=== PATIENT | male | born 1945 | race Caucasian/White ===

== ENCOUNTER 2019-10-31 15:49 | IRF | payer MEDICARE, MEDICAID, SELFPAY ==
[2019-10-31 15:49] VITALS: BMI 17.7
[2019-10-31 15:52] VITALS: BP 98/57; PULSE 93; RESP 18; TEMP 36.5; O2SAT 98
--- NOTE | 2019-10-31 16:03 | ADMGEN ---
This patient, Aamir Cortez, was admitted to [facility] Room 220-01. Patient/family oriented to hospital policies and general routines including ID bracelet, bed and alarms, visiting hours, pain management, procedures, bathroom and other care routines, personal items, smoking policy, room service/diet, and visiting hours. Valuables list has been completed. Information on how to activate the Rapid Response Team has been discussed. Patient/Family are encouraged to report perceived risks to care and to ask questions if they do not understand what they are told or what they should do.
[2019-10-31 20:55] VITALS: PULSE 66; RESP 18
[2019-10-31 21:05] VITALS: PULSE 65; RESP 18
[2019-10-31] MEDS: FUROSEMIDE 20 MG TABLET PO (21:24)
[2019-10-31] MEDS: LORATADINE 10 MG TABLET PO (21:25)
[2019-10-31] MEDS: GABAPENTIN 300 MG CAPSULE PO (21:25)
[2019-10-31] MEDS: predniSONE 10 MG TABLET PO (21:26)
[2019-10-31] MEDS: ALPRAZOLAM 0.5 MG TABLET PO (21:29)
[2019-10-31 21:30] VITALS: PULSE 85
[2019-10-31] MEDS: carvediloL 3.125 MG TABLET PO (21:30)
[2019-10-31 22:00] VITALS: BP 102/59; PULSE 85; RESP 20; TEMP 36.3; O2SAT 99
[2019-11-01 05:11] LABS: Basophils Percent Auto 0.3 % (0.2-1.2); Hematocrit 31.7 % (42.0-52.0); Hemoglobin 9.9 g/dL (14.0-18.0); Immature Granulocyte Absolute 0.41 K/mm3 (0.00-0.031); Immature Granulocyte Percent A 4.5 % (0-0.5); Lymphocytes Absolute Auto 0.77 K/mm3 (0.9-3.2); Lymphocytes Percent Auto 8.4 % (18.3-44.2); Mean Corpuscular HGB Conc 31.2 g/dl (32-36); Mean Corpuscular Hemoglobin 32.4 pg (26-34); Mean Corpuscular Volume 103.6 fl (80-100); Mean Platelet Volume 10.7 fl (7.4-10.4); Monocytes Absolute Auto 0.6 K/mm3 (0.1-0.6); Monocytes Percent Auto 6.6 % (2.6-8.5); Neutrophils Absolute Auto 7.3 K/mm3 (1.3-6.7); Neutrophils Percent Auto 80.2 % (45.5-73.1); Platelet Count Result 311 k/mm3 (150-375); Red Blood Count 3.06 M/mm3 (4.6-6.20); Red Cell Distribution Width 13.2 % (11.5-14.5); White Blood Count 9.1 K/mm3 (4.5-10.0)
[2019-11-01 05:16] LABS: Blood Urea Nitrogen 29 mg/dL (9-20); Calcium 8.6 mg/dL (8.4-10.2); Carbon Dioxide 37 mmol/L (22-30); Chloride 90 mmol/L (98-107); Estimated CRCL calculation 53 ml/min; Estimated Glomerular Filt Rate > 60; Glucose 135 mg/dL (75-110); Potassium 4.4 mmol/L (3.4-5.0); Sodium 131 mmol/L (137-145)
[2019-11-01 05:23] VITALS: PULSE 62; RESP 18
[2019-11-01 05:52] VITALS: BP 122/73; PULSE 90; RESP 18; TEMP 36.3; O2SAT 97
[2019-11-01] MEDS: FLUTICASONE PROPIONATE 0.05% NA SPR 16 GM BTL (*BKC) 2 SPRAY NASAL (08:31)
[2019-11-01] MEDS: GABAPENTIN 300 MG CAPSULE PO ×3 (08:31→17:03)
[2019-11-01] MEDS: ROFLUMILAST 500 MCG TABLET PO (08:32)
[2019-11-01] MEDS: predniSONE 10 MG TABLET PO ×2 (08:32→17:04)
[2019-11-01] MEDS: CHOLECALCIFEROL 1,000 UNIT TABLET 2000 UNITS PO (08:32)
[2019-11-01] MEDS: MONTELUKAST SODIUM 10 MG TABLET PO (08:33)
[2019-11-01] MEDS: MELOXICAM 7.5 MG TABLET 15 MG PO (08:33)
[2019-11-01] MEDS: carvediloL 3.125 MG TABLET PO ×2 (08:34→20:49)
[2019-11-01] MEDS: lisinopriL 2.5 MG TABLET PO (08:34)
[2019-11-01] MEDS: FUROSEMIDE 20 MG TABLET PO ×2 (08:34→17:04)
[2019-11-01] MEDS: ALPRAZOLAM 0.5 MG TABLET PO ×3 (08:37→17:04)
[2019-11-01 08:40] VITALS: PULSE 118; O2SAT 92
[2019-11-01] MEDS: ALBUTEROL SULFATE (*SP) AEROSOL 1 PUFF 2 PUFF INHALATION ×2 (09:54→21:57)
[2019-11-01 13:00] VITALS: BMI 17.7
[2019-11-01 14:34] VITALS: BP 108/48; PULSE 98; RESP 16; TEMP 36.3; O2SAT 100
[2019-11-01] MEDS: LORATADINE 10 MG TABLET PO (17:06)
--- NOTE | 2019-11-01 17:25 | REHAB_ITS ---
DATE OF SERVICE: 11/01/2019 The patient's primary rehab impairment category is orthopedic other. Etiological diagnoses T5, T6, T9, and L3 fractures with kyphosis. He was seen [id number] on 11/01/2019 at 11:00 a.m. HISTORY AND PHYSICAL EXAM: A 74 years old right-handed male with prior medical history of 1. COPD with oxygen. 2. Hypertension. 3. Chronic back pain. Initially presented to [facility] in [place] on 10/20/2019, for the complaint of back pain, progressive weakness and a fall at home. On initial evaluation in the emergency room, he was found to have hyponatremia with sodium of only 130, potassium of 2.9, BUN of 38, creatinine of 0.7 with CK of 283, magnesium 2.2, and UA negative for UTI. Neurosurgical service was consulted and surgical intervention was recommended. The patient underwent a successful kyphoplasty at T5, T6, T9, L3 with [employer] bone cement by Dr. Crarera. Postoperatively, the patient had acute blood loss resulting in anemia, developed significant pain and increased CO2 retention on ABG and was placed on BiPAP. Respiratory status improved and the BiPAP was discontinued and he was placed on baseline 5 L home oxygen therapy. He was noted to have lower extremity edema. The echocardiogram revealed decreased systolic function. He was started on Coreg and lisinopril therapy with a followup to be scheduled with Cardiology as an outpatient. He was discharged from the hospital on 10/26 to a rehab facility and the patient and the family wanted him to be closer to the home and they came to this rehab. Therapy was initiated at the rehab facility and patient was transferred to us from [facility] and [facility] on 10/31/2019. Surgery or Fall: The patient has had 1 major surgery in the 100 days prior to admission. Has had no fall in the past year. No fall with injury in the past year as well. PAST MEDICAL HISTORY: Bilateral lower extremity weakness, COPD, thoracic radiculopathy, compression fracture of T5 vertebra, T6 vertebra, T9 vertebra, and closed compression fracture of 3rd lumbar vertebra with intractable back pain, atrial fibrillation, anxiety, cardiomyopathy with diagnosis of idiopathic dilated cardiomyopathy diagnosed in 2014, congestive heart failure, benign prostatic hypertrophy, hypertension, neuropathy, nonsustained ventricular tachycardia, and prednisone therapy with shortness of breath. PAST SURGICAL HISTORY: Cardiac catheterization on 04/15/2015. Cardiac electrophysiological mapping and ablation on 11/20 and 2016. Nose surgery 2001 and lumbar sacral-guided injections. SOCIAL HISTORY: Patient is and previously lived alone. The plan after rehab is to discharge to his daughter's home. Past history is consistent with him being a former alcohol intaker 14 drinks per week, never a substance abuser, and only seasonal allergies. FAMILY HISTORY: Nothing pertinent. PRIOR LEVEL OF FUNCTION: He was independent in eating and oral care, total hygiene, shower and bathe upper body, lower body, footwear rolling, left and right sit to lying, lying to sitting, sit to stand, bed to chair transfer, toilet transfer. He was previously ambulating 500 feet independently and was able to complete 4 stairs independently. CURRENT LEVEL OF FUNCTION: Eating is independent. Oral care requires supervision or touch assistance. Toilet hygiene is partial moderate assistance. Shower and bathing partial moderate assistance. Upper body partial moderate assistance. Lower body partial moderate assistance, and footwear is partial and moderate assistance, rolling left and right supervision, sit to lying supervision, lying to sitting partial and moderate assistance. Sit to stand partial moderate assistance. [id number] transfer is partia
[2019-11-01 20:49] VITALS: PULSE 98
[2019-11-01] MEDS: TAMSULOSIN HCL 0.4 MG CAPSULE PO (20:49)
[2019-11-01 21:47] VITALS: BP 96/64; PULSE 86; RESP 22; TEMP 36.6; O2SAT 100
[2019-11-02] VITALS (14 sets, daily range): BP systolic 89–128; BP diastolic 39–62; PULSE 47–94; RESP 16–20; TEMP 36.1–36.4; O2SAT 97–100
[2019-11-02] MEDS: ALBUTEROL SULFATE NEB 2.5 MG/0.5 ML INH INHALATION ×4 (02:52→21:22)
[2019-11-02] MEDS: IPRATROPIUM BR 0.02% INH SOLN 0.5 MG/2.5 ML VIAL INHALATION ×4 (02:52→21:22)
[2019-11-02] MEDS: carvediloL 3.125 MG TABLET PO (08:40)
[2019-11-02] MEDS: FLUTICASONE PROPIONATE 0.05% NA SPR 16 GM BTL (*BKC) 2 SPRAY NASAL (08:41)
[2019-11-02] MEDS: CHOLECALCIFEROL 1,000 UNIT TABLET 2000 UNITS PO (08:41)
[2019-11-02] MEDS: GABAPENTIN 300 MG CAPSULE PO ×3 (08:42→17:52)
[2019-11-02] MEDS: FUROSEMIDE 20 MG TABLET PO ×2 (08:42→17:52)
[2019-11-02] MEDS: lisinopriL 2.5 MG TABLET PO (08:43)
[2019-11-02] MEDS: predniSONE 10 MG TABLET PO ×2 (08:43→17:52)
[2019-11-02] MEDS: MELOXICAM 7.5 MG TABLET 15 MG PO (08:43)
[2019-11-02] MEDS: MONTELUKAST SODIUM 10 MG TABLET PO (08:43)
[2019-11-02] MEDS: TAMSULOSIN HCL 0.4 MG CAPSULE PO ×2 (08:44→17:53)
[2019-11-02] MEDS: ROFLUMILAST 500 MCG TABLET PO (08:44)
[2019-11-02] MEDS: polyethylene glycoL 3350 17 GM POWD.PACK PO (08:44)
--- NOTE | 2019-11-02 08:54 | PC.NURSE ---
Patient continues to refuse to wear back brace (surgeon in [place] is aware). Binder ordered to be applied when out of bed for support - as tolerated. Patient agrees to try to wear this.
[2019-11-02] MEDS: ALPRAZOLAM 0.5 MG TABLET PO ×3 (09:07→17:56)
--- NOTE | 2019-11-02 09:46 | PCPTNOTE ---
Aamir Cortez was evaluated for a []wheeled walker on 11/02/2019 by this physical therapist. The [] wheeled walker will resolve patient's mobility limitations and will be used for ADL's within the home. The patient can safely use the [wheeled]walker. ?The []wheeled walker will resolve the patient?s mobility deficits, including impaired endurance, decrease LE strength and patient having to abide by spinal precautions.
--- NOTE | 2019-11-02 12:02 | WPDNEURORHBP ---
Subjective Date/time seen: 11/02/19 12:02 Interval history: this 74-year-old gentleman with underlying significant COPD was recuperating at a nursing home facility after having had kyphoplasty performed for multiple compression fractures of his thoracolumbar vertebrae came to us with the diagnosis of the same and says that the pain control is better however is still his main issue is the pain on a which is not only better but he is improving overall The shortness of breath is about the same which is related to COPD and he is wearing oxygen about 3 liter minute his baseline used to be 5 liters of oxygen prior to having had kyphoplasty for from Review of Systems Constitutional: Constitutional: Reports no additional constitutional complaints Eyes: Eyes: Reports no additional eye complaints ENT: Reports system reviewed and no additional complaints, except as documented Cardiovascular: Cardiovascular: Reports no additional cardiovascular complaints Respiratory: Respiratory: Reports no additional respiratory complaints Gastrointestinal: Gastrointestinal: Reports no additional gastrointestinal complaints Genitourinary: Genitourinary: Reports no additional male genitourinary complaints Musculoskeletal: Musculoskeletal: Reports no additional musculoskeletal complaints Integumentary/Breasts: Skin/Breast: Reports system reviewed and no additional complaints, except as docu Neurologic: Comments: patient denies having had any trouble with his speech and language functions sore cranial nerves his main complaint is the lower extremity more so than the upper extremity weakness which was responsible for his fall followed by the kyphoplasty performed Psychiatric: Psychiatric: Reports no additional psychiatric complaints Functional Status Ambulation Ability Ability to Ambulate 10 Feet: Contact Guard Ability to Ambulate 50 Feet With 2 Turns: Contact Guard Ability to Ambulate 150 Feet: Contact Guard Ambulation Assistive Devices: Walker, Wheeled Transfers Ability Ability to Transfer In/Out of Chair: Contact Guard Exam Const: General: comfortable and no acute distress HENMT: General nose exam: Normal nares present Mouth: Yes moist mucous membranes Eyes: General: appearance normal, both eyes and all related structures Neck: Neck: supple and no JVD Resp: Other: patient has bilateral rhonchi mildly short of breath with physical therapy but willing to move and work Cardio: Rate: regular rate Rhythm: regular rhythm GI: GI Palp: Yes Soft to palpation Auscultation: normal bowel sounds : Male General Exam: Yes normal external exam Skin: General skin exam: normal color and no rashes or lesions noted Neuro: Other: patient is awake and alert will oriented time place and person and speech language functions cranial exam emanuel normal next Is weakness in the lower extremities also better and he is moving in therapy quite well patient is refusing to brace however on counseling he may be willing to have a binder done to help improve his stability at the spine Extrem: General: normal to inspection Objective Data Vital Signs Vital Signs: Vital Signs - 24 hr 11/01/19 14:34 11/01/19 20:49 11/01/19 21:47 Temperature 36.3 C L 36.6 C Pulse Rate 98 98 86 Respiratory Rate 16 22 H Blood Pressure 108/48 L 96/64 L Pulse Oximetry 100 100 11/02/19 02:58 11/02/19 03:03 11/02/19 05:55 Temperature 36.1 C L Pulse Rate 60 62 64 Respiratory Rate 18 18 20 Blood Pressure 103/47 L Pulse Oximetry 100 11/02/19 08:19 11/02/19 08:26 11/02/19 08:40 Temperature Pulse Rate 88 94 64 Respiratory Rate 18 18 Blood Pressure Pulse Oximetry 99 Intake/Output Intake/Output: Intake & Output 10/30/19 10/31/19 11/01/19 11/02/19 23:59 23:59 23:59 23:59 Intake Total 360 720 360 Balance 360 720 360 Meds/Results Medications: Active Medications Generic Name Dose Route Start Last Admin Trade Name Freq PRN Reason Stop D
--- NOTE | 2019-11-02 15:57 | PC.NURSE ---
patient BP checked several times this afternoon and I called Dr. Tovar to see if he wants to change any cardiac meds? He is holding the coreg. Stopped coreg. Will monitor BP.
[2019-11-02] MEDS: LORATADINE 10 MG TABLET PO (17:54)
[2019-11-03] VITALS (11 sets, daily range): BP systolic 103–106; BP diastolic 54–62; PULSE 76–101; RESP 16–20; TEMP 36.2–36.6; O2SAT 94–100
[2019-11-03] MEDS: ALBUTEROL SULFATE NEB 2.5 MG/0.5 ML INH INHALATION ×3 (02:34→21:08)
[2019-11-03] MEDS: IPRATROPIUM BR 0.02% INH SOLN 0.5 MG/2.5 ML VIAL INHALATION ×3 (02:34→21:08)
[2019-11-03] MEDS: hydrOXYzine HCL 25 MG TABLET PO (09:32)
[2019-11-03] MEDS: FLUTICASONE PROPIONATE 0.05% NA SPR 16 GM BTL (*BKC) 2 SPRAY NASAL (09:32)
--- NOTE | 2019-11-03 09:32 | RPD ---
INDIVIDUALIZED PLAN OF CARE FOR Aamir Cortez Brief Synthesis of Pre-Admission Screen, Post-Admission Evaluation and Therapy Evaluations: The patient presents to rehab with T5, T6, T9, and L3 fractures with kyphosis. Comorbidities include bilateral leg weakness, COPD, thoracic radiculopathy, compression fracture T5 vertebra, compression fracture T6 vertebra, compression fracture T9 vertebra, closed compression fracture 3rd lumbar vertebra, intractable back pain, atrial fibrillation, anxiety, cardiomyopathy (idiopathic dilated cardiomyopathy 2014), CHF, BPH, hypertension, neuropathy, NSVT (nonsustained ventricular tachycardia), prednisone therapy,shortness of breath, acute blood loss anemia. The patient requires physician services for medical oversight, management of postop complications in setting of present comorbidities, and pain management. The patient requires nursing services for DVT prophylactics, infection protection, medication management and education, pressure relief, and wound care. Deficits include:ADLs, Balance, Cognition, Endurance, Mobility, Pain Management, ROM, Safety,Strength, Transfers Lasting Machine Operator/Case Management for: Discharge Planning and Patient/Family Counseling Physical Therapy: 5 days per week for 90 minutes. Treatments may include: Therapeutic Exercise, Gait Training, Neuromuscular Re-education, Transfer Training, Community Reintegration, Bed Mobility, Patient/Family Education, Wheelchair Mobility Group Therapy/Concurrent Therapy Rationales: -Improve attention span during functional activities in a distracted environment. -Enhance problem solving and/or adequate judgment skills during functional activities in a distracted environment. -Promote increased safety awareness in a distracted environment to reduce fall risk with functional tasks, transfers, and ambulation to allow a more safe, self-sufficient return to the home environment. -Improve dynamic balance skills to promote safety and independence with functional activities in a distracted environment for maximum gain. Occupational Therapy: 5 days per week for 90 minutes. Treatments may include: Therapeutic Exercise, Therapeutic Activity, Cognitive Training, Self-Care Transfer Training, Community Reintegration, Home Management, Patient/Family Education, Wheelchair Mobility Training, Energy Conservation Training Group Therapy/Concurrent Therapy Rationales: -Allow therapist to observe and teach generalization and carry-over of skills learned in individual therapy. -Enhance problem solving and sequencing skills during therapeutic activities in a distracted environment. -Promote increased safety awareness in a realistic setting to reduce fall risk with functional tasks due to visual and verbal distractions. -Increase functional level with ADLs, ADL transfers and use of adaptive equipment through therapeutic activities with others while promoting safety to allow a more safe, self-sufficient return home. Medical Prognosis: Good Anticipated Length of Stay: 10 days Rehab Goals: Eating Goal: 06-Independent Oral Hygiene Goal: 06-Independent Toileting Hygiene Goal: 06-Independent Shower/Bathe Self Goal: 06-Independent Upper Body Dressing Goal: 06-Independent Lower Body Dressing Goal: 06-Independent Putting On/Taking Off Footwear Goal: 06-Independent Rolling Left and Right Goal: 06-Independent Sit to Lying Goal: 06-Independent Lying to Sitting on Side of Bed Goal: 06-Independent Sit to Stand Goal: 06-Independent Chair/[id number]-[id number] Transfer Goal: 06-Independent Toilet Transfer Goal: 06-Independent Car Transfer Goal: 06-Independent Walk 10' Goal: 06-Independent Walk 50' with Two Turns Goal: 06-Independent Walk 150' Goal: 06-Independent Walk 10' on Uneven Surface Goal: 06-Independent 1 Step (Curb) Goal: 06-Independent 4 Steps Goal: 06-Independent 12 Steps Goal Score: 06-Independent Picking Up Object Goal: 06-Independent Wheel 50' with Two Turns Score: 09-Not Applicable Wheel
[2019-11-03] MEDS: ROFLUMILAST 500 MCG TABLET PO (09:33)
[2019-11-03] MEDS: MELOXICAM 7.5 MG TABLET 15 MG PO (09:33)
[2019-11-03] MEDS: CHOLECALCIFEROL 1,000 UNIT TABLET 2000 UNITS PO (09:33)
[2019-11-03] MEDS: GABAPENTIN 300 MG CAPSULE PO ×3 (09:34→16:22)
[2019-11-03] MEDS: TAMSULOSIN HCL 0.4 MG CAPSULE PO ×2 (09:34→16:22)
[2019-11-03] MEDS: lisinopriL 2.5 MG TABLET PO (09:34)
[2019-11-03] MEDS: predniSONE 10 MG TABLET PO ×2 (09:34→16:23)
[2019-11-03] MEDS: FUROSEMIDE 20 MG TABLET PO ×2 (09:34→16:21)
[2019-11-03] MEDS: MONTELUKAST SODIUM 10 MG TABLET PO (09:35)
[2019-11-03] MEDS: ALPRAZOLAM 0.5 MG TABLET PO ×3 (09:37→16:21)
--- NOTE | 2019-11-03 12:56 | WPDNEURORHBP ---
Subjective Date/time seen: 11/03/19 12:56 Interval history: patient is here because of multiple spinal fractures along with the postsurgical aches and pains The COPD is stable and he is comfortable with the oxygen requirement at this point Review of Systems Constitutional: Constitutional: Reports no additional constitutional complaints Eyes: Eyes: Reports no additional eye complaints ENT: Reports system reviewed and no additional complaints, except as documented Cardiovascular: Cardiovascular: Reports no additional cardiovascular complaints Respiratory: Respiratory: Reports no additional respiratory complaints Gastrointestinal: Gastrointestinal: Reports no additional gastrointestinal complaints Genitourinary: Genitourinary: Reports no additional male genitourinary complaints Musculoskeletal: Musculoskeletal: Reports no additional musculoskeletal complaints Integumentary/Breasts: Skin/Breast: Reports system reviewed and no additional complaints, except as docu Neurologic: Reports system reviewed and no additional complaints, except as documented Psychiatric: Psychiatric: Reports no additional psychiatric complaints Functional Status Ambulation Ability Ability to Ambulate 10 Feet: Standby Assistance Ability to Ambulate 50 Feet With 2 Turns: Standby Assistance Ability to Ambulate 150 Feet: Standby Assistance Ambulation Assistive Devices: Walker, Wheeled Transfers Ability Ability to Transfer In/Out of Chair: Contact Guard Exam Const: General: comfortable and no acute distress HENMT: General nose exam: Normal nares present Mouth: Yes moist mucous membranes Eyes: General: appearance normal, both eyes and all related structures Neck: Neck: supple and no JVD Resp: Effort & Inspection: normal respiratory effort Auscultation: rhonchi Other: wearing oxygen per nasal cannula and doing fairly well Cardio: Rate: regular rate Rhythm: regular rhythm GI: GI Palp: Yes Soft to palpation Auscultation: normal bowel sounds Skin: General skin exam: normal color and no rashes or lesions noted Neuro: Other: patient is needing assistance in the activities of daily living however does not have any lateralizing focal motor deficit he does have evidence of sensory neuropathy Extrem: General: normal to inspection Objective Data Vital Signs Vital Signs: Vital Signs - 24 hr 11/02/19 14:00 11/02/19 14:11 11/02/19 15:35 Temperature 36.1 C L 36.4 C L Pulse Rate 47 L 89 50 L Respiratory Rate 16 18 16 Blood Pressure 92/39 L 89/52 L Pulse Oximetry 100 100 11/02/19 21:22 11/02/19 21:25 01/28/20 21:31 Temperature Pulse Rate 80 81 Respiratory Rate 18 18 Blood Pressure Pulse Oximetry 97 11/02/19 22:00 11/03/19 02:35 11/03/19 02:41 Temperature 36.1 C L Pulse Rate 82 78 80 Respiratory Rate 20 18 18 Blood Pressure 128/56 L Pulse Oximetry 100 11/03/19 05:32 Temperature 36.2 C L Pulse Rate 79 Respiratory Rate 16 Blood Pressure 106/54 L Pulse Oximetry 99 Intake/Output Intake/Output: Intake & Output 10/31/19 11/01/19 11/02/19 11/03/19 23:59 23:59 23:59 23:59 Intake Total 360 720 840 240 Balance 360 720 840 240 Meds/Results Medications: Active Medications Generic Name Dose Route Start Last Admin Trade Name Freq PRN Reason Stop Dose Admin Acetaminophen 500 mg 10/31/19 19:00 Tylenol Tablet PO Q4H PRN Mild Pain (1-3) or Fever Hydrocodone Bitart/Acetaminophen 1 tab 10/31/19 18:59 [place] 5-325 Mg PO Q8H PRN Pain Rated 4-6 Albuterol 2 puff 10/31/19 18:48 11/01/19 21:57 Proventil Hfa INHALATION 2 puff Q6H PRN Administration Wheezing Albuterol 2.5 mg 11/02/19 02:00 11/03/19 08:26 Albuterol Sulf Neb 2.5mg/0.5ml INHALATION 2.5 mg Q6HRT LORENA Administration Alprazolam 0.5 mg 10/31/19 20:15 11/03/19 12:12 Xanax PO 0.5 mg TID LORENA Administration Budesonide/Formoterol Fumarate 2 puff 10/31/19 20:00 11/03/19 08
[2019-11-03] MEDS: LORATADINE 10 MG TABLET PO (17:35)
[2019-11-04] VITALS (10 sets, daily range): BP systolic 86–111; BP diastolic 48–55; PULSE 74–119; RESP 18–24; TEMP 36.1–36.9; O2SAT 94–100
[2019-11-04] MEDS: IPRATROPIUM BR 0.02% INH SOLN 0.5 MG/2.5 ML VIAL INHALATION ×3 (02:18→20:15)
[2019-11-04] MEDS: ALBUTEROL SULFATE NEB 2.5 MG/0.5 ML INH INHALATION ×3 (02:18→20:15)
[2019-11-04] MEDS: FLUTICASONE PROPIONATE 0.05% NA SPR 16 GM BTL (*BKC) 2 SPRAY NASAL (08:49)
[2019-11-04] MEDS: CHOLECALCIFEROL 1,000 UNIT TABLET 2000 UNITS PO (08:49)
[2019-11-04] MEDS: MELOXICAM 7.5 MG TABLET 15 MG PO (08:50)
[2019-11-04] MEDS: MONTELUKAST SODIUM 10 MG TABLET PO (08:50)
[2019-11-04] MEDS: FUROSEMIDE 20 MG TABLET PO ×2 (08:50→17:24)
[2019-11-04] MEDS: GABAPENTIN 300 MG CAPSULE PO ×3 (08:50→17:24)
[2019-11-04] MEDS: TAMSULOSIN HCL 0.4 MG CAPSULE PO ×2 (08:51→17:24)
[2019-11-04] MEDS: ROFLUMILAST 500 MCG TABLET PO (08:51)
[2019-11-04] MEDS: predniSONE 10 MG TABLET PO ×2 (08:51→17:24)
[2019-11-04] MEDS: lisinopriL 2.5 MG TABLET PO (08:51)
[2019-11-04] MEDS: ALPRAZOLAM 0.5 MG TABLET PO ×3 (08:53→17:27)
--- NOTE | 2019-11-04 11:38 | ECG_ITS ---
Measurements Intervals Loop Rate: 103 P: 75 HI: 115 QRS: 50 QRSD: 81 T: 1 QT: 326 QTc: 428 Interpretive Statements SINUS TACHYCARDIA WITH SHORT HI INTERVAL NONSPECIFIC ST & T-WAVE ABNORMALITY- INF/LAT LEADS BASELINE ARTIFACT- I, II, III, AVR, AVL, AVF, V2-V6 ABNORMAL ECG Electronically Signed On 11-04-2019 13:00:21 TELEVISION EQUIPMENT OPERATOR by Syed Woody D.O.
--- NOTE | 2019-11-04 11:41 | WPDNEURORHBP ---
Subjective Date/time seen: 11/04/19 11:41 Interval history: patient is complaining of cough and congestion and has had pneumonia in the recent past his heart rate is also up and he did have a brief Prieb at of atrial fibrillation in the recent past Review of Systems Constitutional: Constitutional: Reports no additional constitutional complaints Eyes: Eyes: Reports no additional eye complaints ENT: Reports system reviewed and no additional complaints, except as documented Cardiovascular: Cardiovascular: Reports no additional cardiovascular complaints Comments: patient has tachycardia up to 116 beats per minute without much of symptomatology Respiratory: Respiratory: Reports no additional respiratory complaints Comments: patient complains of cough and congestion Gastrointestinal: Gastrointestinal: Reports no additional gastrointestinal complaints Genitourinary: Genitourinary: Reports no additional male genitourinary complaints Musculoskeletal: Musculoskeletal: Reports no additional musculoskeletal complaints Integumentary/Breasts: Skin/Breast: Reports system reviewed and no additional complaints, except as docu Neurologic: Reports system reviewed and no additional complaints, except as documented Psychiatric: Psychiatric: Reports no additional psychiatric complaints Functional Status Ambulation Ability Ability to Ambulate 10 Feet: Standby Assistance Ability to Ambulate 50 Feet With 2 Turns: Standby Assistance Ability to Ambulate 150 Feet: Standby Assistance Ambulation Assistive Devices: Walker, Wheeled Transfers Ability Ability to Transfer In/Out of Chair: Contact Guard Exam Const: General: comfortable and no acute distress HENMT: General nose exam: Normal nares present Mouth: Yes moist mucous membranes Eyes: General: appearance normal, both eyes and all related structures Neck: Neck: no JVD Carotids: bruit Resp: Other: upper airway sounds on physical examination probably URI Cardio: Other: tachycardia however it is regular on clinical exam GI: GI Palp: Yes Soft to palpation Auscultation: normal bowel sounds Skin: General skin exam: normal color and no rashes or lesions noted Neuro: Other: patient's strength in general is improving however he is relatively has decreased endurance weakness generalize lower extremities more so than the upper extremities without lateralizing focal motor deficit Extrem: General: normal to inspection Objective Data Vital Signs Vital Signs: Vital Signs - 24 hr 11/03/19 14:00 11/03/19 14:35 11/03/19 15:03 Temperature 36.3 C L Pulse Rate 77 101 H 77 Pulse Rate [With Activity During Therapy Session] 101 H Respiratory Rate 18 18 Blood Pressure 103/62 Pulse Oximetry 100 100 100 Pulse Oximetry [With Activity During Therapy Session] 100 11/03/19 21:08 11/03/19 21:17 11/03/19 21:23 Temperature 36.6 C Pulse Rate 87 82 84 Pulse Rate [With Activity During Therapy Session] Respiratory Rate 18 20 18 Blood Pressure 103/58 L Pulse Oximetry 94 100 Pulse Oximetry [With Activity During Therapy Session] 11/04/19 02:19 11/04/19 02:29 11/04/19 06:00 Temperature 36.1 C L Pulse Rate 78 80 74 Pulse Rate [With Activity During Therapy Session] Respiratory Rate 18 18 24 H Blood Pressure 111/55 L Pulse Oximetry 100 Pulse Oximetry [With Activity During Therapy Session] 11/04/19 08:20 11/04/19 08:30 11/04/19 09:30 Temperature Pulse Rate 85 89 117 H Pulse Rate [With Activity During Therapy Session] 102 H Respiratory Rate 20 20 Blood Pressure Pulse Oximetry 94 100 Pulse Oximetry [With Activity During Therapy Session] 100 Intake/Output Intake/Output: Intake & Output 11/01/19 11/02/19 11/03/19 11/04/19 23:59 23:59 23:59 23:59 Intake Total 720 840 600 240 Balance 720 840 600 240 Meds/Results Medications: Active Medications Generic Name Dose Route Start Last Admin Trade Name Freq PRN Reason Stop Dose Admin Ac
[2019-11-04] MEDS: AZITHROMYCIN 250 MG TABLET 500 MG PO (14:12)
[2019-11-04] MEDS: LORATADINE 10 MG TABLET PO (17:25)
[2019-11-05] VITALS (12 sets, daily range): BP systolic 99–104; BP diastolic 55–60; PULSE 76–120; RESP 18–24; TEMP 36.6–37; O2SAT 93–98
[2019-11-05] MEDS: ALBUTEROL SULFATE NEB 2.5 MG/0.5 ML INH INHALATION ×4 (01:26→20:40)
[2019-11-05] MEDS: IPRATROPIUM BR 0.02% INH SOLN 0.5 MG/2.5 ML VIAL INHALATION ×4 (01:26→20:40)
[2019-11-05] MEDS: AZITHROMYCIN 250 MG TABLET 500 MG PO (09:12)
[2019-11-05] MEDS: ALPRAZOLAM 0.5 MG TABLET PO ×3 (09:12→17:57)
[2019-11-05] MEDS: CHOLECALCIFEROL 1,000 UNIT TABLET 2000 UNITS PO (09:13)
[2019-11-05] MEDS: FUROSEMIDE 20 MG TABLET PO ×2 (09:13→17:58)
[2019-11-05] MEDS: FLUTICASONE PROPIONATE 0.05% NA SPR 16 GM BTL (*BKC) 2 SPRAY NASAL (09:13)
[2019-11-05] MEDS: MELOXICAM 7.5 MG TABLET 15 MG PO (09:14)
[2019-11-05] MEDS: MONTELUKAST SODIUM 10 MG TABLET PO (09:14)
[2019-11-05] MEDS: GABAPENTIN 300 MG CAPSULE PO ×3 (09:14→17:58)
[2019-11-05] MEDS: lisinopriL 2.5 MG TABLET PO (09:14)
[2019-11-05] MEDS: predniSONE 10 MG TABLET PO ×2 (09:14→17:58)
[2019-11-05] MEDS: TAMSULOSIN HCL 0.4 MG CAPSULE PO ×2 (09:15→17:57)
[2019-11-05] MEDS: ROFLUMILAST 500 MCG TABLET PO (09:15)
--- NOTE | 2019-11-05 13:18 | WPDNEURORHBP ---
Subjective Date/time seen: 11/05/19 13:18 Interval history: Errol is doing fairly well and does not have any new specific complaints although he runs relatively low blood pressure but asymptomatic his COPD is stable and does not have any new complaints Review of Systems Constitutional: Constitutional: Reports no additional constitutional complaints Eyes: Eyes: Reports no additional eye complaints ENT: Reports system reviewed and no additional complaints, except as documented Cardiovascular: Cardiovascular: Reports no additional cardiovascular complaints Respiratory: Respiratory: Reports no additional respiratory complaints Gastrointestinal: Gastrointestinal: Reports no additional gastrointestinal complaints Genitourinary: Genitourinary: Reports no additional male genitourinary complaints Musculoskeletal: Musculoskeletal: Reports no additional musculoskeletal complaints Integumentary/Breasts: Skin/Breast: Reports system reviewed and no additional complaints, except as docu Neurologic: Reports system reviewed and no additional complaints, except as documented Psychiatric: Psychiatric: Reports no additional psychiatric complaints Functional Status Ambulation Ability Ability to Ambulate 10 Feet: Standby Assistance Ability to Ambulate 50 Feet With 2 Turns: Standby Assistance Ability to Ambulate 150 Feet: Standby Assistance Ambulation Assistive Devices: Walker, Wheeled Transfers Ability Ability to Transfer In/Out of Chair: Standby Assistance Exam Const: General: comfortable and no acute distress HENMT: General nose exam: Normal nares present Mouth: Yes moist mucous membranes Eyes: General: appearance normal, both eyes and all related structures Neck: Neck: supple and no JVD Resp: Other: as usual bilateral rhonchi without any worsening Cardio: Rate: regular rate Rhythm: regular rhythm GI: GI Palp: Yes Soft to palpation Auscultation: normal bowel sounds Skin: General skin exam: normal color and no rashes or lesions noted Neuro: Other: patient's generalized weakness is improving lower extremities improving his walking better blood pressure is better controlled comparing to earlier this morning No lateralizing focal motor deficit is noted Extrem: General: normal to inspection Objective Data Vital Signs Vital Signs: Vital Signs - 24 hr 11/04/19 14:00 11/04/19 20:15 11/04/19 20:25 Temperature 36.9 C Pulse Rate 119 H 84 87 Pulse Rate [With Activity During Therapy Session] Respiratory Rate 19 20 20 Blood Pressure 86/49 L Pulse Oximetry 97 99 Pulse Oximetry [With Activity During Therapy Session] 11/04/19 22:00 11/05/19 01:26 11/05/19 01:35 Temperature 36.3 C L Pulse Rate 90 87 85 Pulse Rate [With Activity During Therapy Session] Respiratory Rate 18 20 20 Blood Pressure 87/48 L Pulse Oximetry 96 Pulse Oximetry [With Activity During Therapy Session] 11/05/19 05:59 11/05/19 08:17 11/05/19 08:25 Temperature 37.0 C Pulse Rate 76 113 H 106 H Pulse Rate [With Activity During Therapy Session] Respiratory Rate 18 20 20 Blood Pressure 100/55 L Pulse Oximetry 93 97 Pulse Oximetry [With Activity During Therapy Session] 11/05/19 09:27 Temperature Pulse Rate 114 H Pulse Rate [With Activity During Therapy Session] 120 H Respiratory Rate Blood Pressure 101/55 L Pulse Oximetry 98 Pulse Oximetry [With Activity During Therapy Session] 93 Intake/Output Intake/Output: Intake & Output 11/02/19 11/03/19 11/04/19 11/05/19 23:59 23:59 23:59 23:59 Intake Total 840 600 720 360 Balance 840 600 720 360 Meds/Results Medications: Active Medications Generic Name Dose Route Start Last Admin Trade Name Freq PRN Reason Stop Dose Admin Acetaminophen 500 mg 10/31/19 19:00 Tylenol Tablet PO Q4H PRN Mild Pain (1-3) or Fever Hydrocodone Bitart/Acetaminophen 1 tab 10/31/19 18:59 [place] 5-325 Mg PO Q8H PRN Pain Rated 4-6 Albuterol
--- NOTE | 2019-11-05 13:45 | PCDIET ---
Nutrition Follow-Up Complete: Nutrition Diagnosis: Underweight related to COPD as evidenced by BMI of 17.8. Nutrition Goals: Intakes >75%, stable weight. Intake goal met with patient consuming 70-100% of most meals. No new weight available. Last recorded weight is 48.4 kg. Recommend obtaining new weight. Bowel Motility: +BM this date. Labs Reviewed: No new labs available. Meds Noted: Albuterol, Prednisone, Vitamin D, Lasix Additional Notes: Patient reports food has been good and denies c/o. Requesting turkey sandwich with dinner tray which he can eat during the night if he gets hungry. Declines oral supplements; feels they will increase phleghm production. Recommend continuing regular diet with added sandwich for late night snack. Will continue to monitor with same goals. Nutrition Monitoring and Evaluation: Follow up in 5 days.
[2019-11-05] MEDS: LORATADINE 10 MG TABLET PO (17:59)
[2019-11-06] VITALS (12 sets, daily range): BP systolic 100–106; BP diastolic 52–59; PULSE 61–100; RESP 16–20; TEMP 36.3–36.6; O2SAT 97–100
[2019-11-06] MEDS: ALBUTEROL SULFATE NEB 2.5 MG/0.5 ML INH INHALATION ×4 (02:00→20:50)
[2019-11-06] MEDS: IPRATROPIUM BR 0.02% INH SOLN 0.5 MG/2.5 ML VIAL INHALATION ×4 (02:00→20:50)
[2019-11-06] MEDS: ALPRAZOLAM 0.5 MG TABLET PO ×3 (08:28→18:02)
[2019-11-06] MEDS: AZITHROMYCIN 250 MG TABLET 500 MG PO (08:30)
[2019-11-06] MEDS: CHOLECALCIFEROL 1,000 UNIT TABLET 2000 UNITS PO (08:31)
[2019-11-06] MEDS: FUROSEMIDE 20 MG TABLET PO ×2 (08:32→18:04)
[2019-11-06] MEDS: lisinopriL 2.5 MG TABLET PO (08:33)
[2019-11-06] MEDS: predniSONE 10 MG TABLET PO ×2 (08:33→18:05)
[2019-11-06] MEDS: GABAPENTIN 300 MG CAPSULE PO ×3 (08:33→18:04)
[2019-11-06] MEDS: MELOXICAM 7.5 MG TABLET 15 MG PO (08:33)
[2019-11-06] MEDS: MONTELUKAST SODIUM 10 MG TABLET PO (08:33)
[2019-11-06] MEDS: FLUTICASONE PROPIONATE 0.05% NA SPR 16 GM BTL (*BKC) 2 SPRAY NASAL (08:34)
[2019-11-06] MEDS: TAMSULOSIN HCL 0.4 MG CAPSULE PO ×2 (08:34→18:05)
[2019-11-06] MEDS: ROFLUMILAST 500 MCG TABLET PO (08:34)
[2019-11-06] MEDS: LORATADINE 10 MG TABLET PO (18:05)
[2019-11-07] VITALS (12 sets, daily range): BP systolic 105–110; BP diastolic 58–62; PULSE 70–102; RESP 16–22; TEMP 36.8–37; O2SAT 96–99
[2019-11-07] MEDS: ALBUTEROL SULFATE NEB 2.5 MG/0.5 ML INH INHALATION ×4 (01:45→21:04)
[2019-11-07] MEDS: IPRATROPIUM BR 0.02% INH SOLN 0.5 MG/2.5 ML VIAL INHALATION ×4 (01:45→21:04)
--- NOTE | 2019-11-07 08:30 | PCPTNOTE ---
Patient's O2 sats remained 92-99% throughout physical therapy session this morning. O2 at 3L. Pt given frequent rest breaks.
[2019-11-07] MEDS: ALPRAZOLAM 0.5 MG TABLET PO ×3 (09:40→17:41)
[2019-11-07] MEDS: AZITHROMYCIN 250 MG TABLET 500 MG PO (09:40)
[2019-11-07] MEDS: FLUTICASONE PROPIONATE 0.05% NA SPR 16 GM BTL (*BKC) 2 SPRAY NASAL (09:41)
[2019-11-07] MEDS: CHOLECALCIFEROL 1,000 UNIT TABLET 2000 UNITS PO (09:41)
[2019-11-07] MEDS: MELOXICAM 7.5 MG TABLET 15 MG PO (09:42)
[2019-11-07] MEDS: lisinopriL 2.5 MG TABLET PO (09:42)
[2019-11-07] MEDS: GABAPENTIN 300 MG CAPSULE PO ×3 (09:42→17:42)
[2019-11-07] MEDS: ROFLUMILAST 500 MCG TABLET PO (09:42)
[2019-11-07] MEDS: FUROSEMIDE 20 MG TABLET PO ×2 (09:42→17:41)
[2019-11-07] MEDS: predniSONE 10 MG TABLET PO ×2 (09:42→17:42)
[2019-11-07] MEDS: MONTELUKAST SODIUM 10 MG TABLET PO (09:42)
[2019-11-07] MEDS: TAMSULOSIN HCL 0.4 MG CAPSULE PO ×2 (09:43→17:42)
--- NOTE | 2019-11-07 12:38 | WPDNEURORHBP ---
Subjective Date/time seen: 11/07/19 12:38 Interval history: stable no complaints Review of Systems Review of Systems: All systems reviewed & are unremarkable except as noted in HPI and below Functional Status Ambulation Ability Ability to Ambulate 10 Feet: Standby Assistance Ability to Ambulate 50 Feet With 2 Turns: Standby Assistance Ability to Ambulate 150 Feet: Standby Assistance Ambulation Assistive Devices: Walker, Wheeled Transfers Ability Ability to Transfer In/Out of Chair: Standby Assistance Exam Const: General: cooperative, comfortable and no acute distress Orientation/consciousness: patient oriented x3 HENMT: Head: normocephalic Eyes: General: appearance normal, both eyes and all related structures Resp: Effort & Inspection: normal respiratory effort Auscultation: clear to auscultation bilaterally Cardio: Rate: regular rate Rhythm: regular rhythm GI: Auscultation: normal bowel sounds Skin: General skin exam: no rashes or lesions noted Neuro: General: patient oriented x3 Cranial nerves: Yes CN's II-XII intact bilaterally Speech: normal speech Motor exam (neuro): 5/5 motor strength present throughout (on the lower side) Psych: Appearance: grossly normal Objective Data Vital Signs Vital Signs: Vital Signs - 24 hr 11/06/19 14:00 11/06/19 15:08 11/06/19 15:15 Temperature 36.3 C L Pulse Rate 98 92 94 Respiratory Rate 20 20 20 Blood Pressure 102/52 L Pulse Oximetry 100 11/06/19 20:50 11/06/19 21:00 11/06/19 22:00 Temperature 36.6 C Pulse Rate 91 92 87 Respiratory Rate 20 20 20 Blood Pressure 100/59 L Pulse Oximetry 97 98 11/07/19 01:45 11/07/19 01:55 11/07/19 06:00 Temperature 37.0 C Pulse Rate 93 93 82 Respiratory Rate 20 20 18 Blood Pressure 105/58 L Pulse Oximetry 99 11/07/19 09:50 11/07/19 09:51 11/07/19 09:58 Temperature Pulse Rate 79 78 Respiratory Rate 22 H 22 H Blood Pressure Pulse Oximetry 99 Intake/Output Intake/Output: Intake & Output 11/04/19 11/05/19 11/06/19 11/07/19 23:59 23:59 23:59 23:59 Intake Total 720 840 800 200 Balance 720 840 800 200 Meds/Results Medications: Active Medications Generic Name Dose Route Start Last Admin Trade Name Freq PRN Reason Stop Dose Admin Acetaminophen 500 mg 10/31/19 19:00 Tylenol Tablet PO Q4H PRN Mild Pain (1-3) or Fever Hydrocodone Bitart/Acetaminophen 1 tab 10/31/19 18:59 11/07/19 11:45 [place] 5-325 Mg PO 1 tab Q8H PRN Administration Pain Rated 4-6 Albuterol 2 puff 10/31/19 18:48 11/01/19 21:57 Proventil Hfa INHALATION 2 puff Q6H PRN Administration Wheezing Albuterol 2.5 mg 11/02/19 02:00 11/07/19 09:50 Albuterol Sulf Neb 2.5mg/0.5ml INHALATION 2.5 mg Q6HRT LORENA Administration Alprazolam 0.5 mg 10/31/19 20:15 11/07/19 12:06 Xanax PO 0.5 mg TID LORENA Administration Azithromycin 500 mg 11/04/19 09:00 11/07/19 09:40 Zithromax Tablet PO 500 mg DAILY LORENA Administration Budesonide/Formoterol Fumarate 2 puff 10/31/19 20:00 11/07/19 09:50 Symbicort 160-4.5 Mcg (*Sp) Inhaler INHALATION 2 puff Q12HRT LORENA Administration Fluticasone Propionate 2 spray 11/01/19 09:00 11/07/19 09:41 Flonase 0.05% Nasal [place] NASAL 2 spray QAM LORENA Administration Furosemide 20 mg 10/31/19 19:25 11/07/19 09:42 Lasix Tablet PO 20 mg BID LORENA Administration Gabapentin 300 mg 10/31/19 19:25 11/07/19 12:06 Neurontin PO 300 mg TID LORENA Administration Hydroxyzine HCl 25 mg 10/31/19 18:48 11/03/19 09:32 Atarax Tablet PO 25 mg TID PRN Administration Anxiety Ipratropium [place] 0.5 mg 11/02/19 02:00 11/07/19 09:50 Atrovent Neb INHALATION 0.5 mg Q6HRT LORENA Administration Lisinopril 2.5 mg 11/01/19 09:00 11/07/19 09:42 Prinivil PO 2.5 mg QAM LORENA Administration Loratadine 10 mg 10/31/19 18:00 11/06/19 18:05 Claritin PO 12/01/19 18:01 10 mg
[2019-11-07] MEDS: BACLOFEN 10 MG TABLET PO (17:41)
[2019-11-07] MEDS: LORATADINE 10 MG TABLET PO (17:42)
[2019-11-08] VITALS (13 sets, daily range): BP systolic 95–124; BP diastolic 50–74; PULSE 84–104; RESP 16–20; TEMP 36.7–37.1; O2SAT 96–100
[2019-11-08] MEDS: ALBUTEROL SULFATE NEB 2.5 MG/0.5 ML INH INHALATION ×4 (02:33→21:16)
[2019-11-08] MEDS: IPRATROPIUM BR 0.02% INH SOLN 0.5 MG/2.5 ML VIAL INHALATION ×4 (02:33→21:16)
[2019-11-08 06:00] LABS: Blood Urea Nitrogen 34 mg/dL (9-20); Calcium 8.7 mg/dL (8.4-10.2); Carbon Dioxide 31 mmol/L (22-30); Chloride 95 mmol/L (98-107); Estimated CRCL calculation 61 ml/min; Estimated Glomerular Filt Rate > 60; Glucose 111 mg/dL (75-110); Potassium 4.4 mmol/L (3.4-5.0); Sodium 130 mmol/L (137-145)
[2019-11-08 06:01] LABS: Basophils Absolute Auto 0.1 K/mm3 (0.0-0.1); Basophils Percent Auto 0.5 % (0.2-1.2); Eosinophils Percent Auto 0.1 % (0-4.4); Hematocrit 29.7 % (42.0-52.0); Hemoglobin 9.4 g/dL (14.0-18.0); Immature Granulocyte Absolute 0.89 K/mm3 (0.00-0.031); Immature Granulocyte Percent A 6.9 % (0-0.5); Lymphocytes Absolute Auto 0.93 K/mm3 (0.9-3.2); Lymphocytes Percent Auto 7.2 % (18.3-44.2); Mean Corpuscular HGB Conc 31.6 g/dl (32-36); Mean Corpuscular Hemoglobin 32.3 pg (26-34); Mean Corpuscular Volume 102.1 fl (80-100); Mean Platelet Volume 10.3 fl (7.4-10.4); Monocytes Percent Auto 8.1 % (2.6-8.5); Neutrophils Absolute Auto 9.9 K/mm3 (1.3-6.7); Neutrophils Percent Auto 77.2 % (45.5-73.1); Platelet Count Result 265 k/mm3 (150-375); Red Blood Count 2.91 M/mm3 (4.6-6.20); Red Cell Distribution Width 13.4 % (11.5-14.5); White Blood Count 12.8 K/mm3 (4.5-10.0)
[2019-11-08] MEDS: AZITHROMYCIN 250 MG TABLET 500 MG PO (08:54)
[2019-11-08] MEDS: lisinopriL 2.5 MG TABLET PO (08:55)
[2019-11-08] MEDS: FLUTICASONE PROPIONATE 0.05% NA SPR 16 GM BTL (*BKC) 2 SPRAY NASAL (08:55)
[2019-11-08] MEDS: CHOLECALCIFEROL 1,000 UNIT TABLET 2000 UNITS PO (08:55)
[2019-11-08] MEDS: GABAPENTIN 300 MG CAPSULE PO ×3 (08:55→17:23)
[2019-11-08] MEDS: BACLOFEN 10 MG TABLET PO ×2 (08:55→17:23)
[2019-11-08] MEDS: FUROSEMIDE 20 MG TABLET PO ×2 (08:55→17:23)
[2019-11-08] MEDS: TAMSULOSIN HCL 0.4 MG CAPSULE PO ×2 (08:56→17:23)
[2019-11-08] MEDS: MELOXICAM 7.5 MG TABLET 15 MG PO (08:56)
[2019-11-08] MEDS: MONTELUKAST SODIUM 10 MG TABLET PO (08:56)
[2019-11-08] MEDS: ROFLUMILAST 500 MCG TABLET PO (08:56)
[2019-11-08] MEDS: predniSONE 10 MG TABLET PO ×2 (08:56→17:23)
[2019-11-08] MEDS: ALPRAZOLAM 0.5 MG TABLET PO ×3 (08:58→17:22)
[2019-11-08] MEDS: LORATADINE 10 MG TABLET PO (17:24)
[2019-11-09] VITALS (14 sets, daily range): BP systolic 124–126; BP diastolic 69–70; PULSE 85–118; RESP 18–24; TEMP 36.2–36.8; O2SAT 86–100
[2019-11-09] MEDS: IPRATROPIUM BR 0.02% INH SOLN 0.5 MG/2.5 ML VIAL INHALATION ×3 (03:31→14:07)
[2019-11-09] MEDS: ALBUTEROL SULFATE NEB 2.5 MG/0.5 ML INH INHALATION ×3 (03:31→14:07)
[2019-11-09] MEDS: ALPRAZOLAM 0.5 MG TABLET PO ×3 (09:35→17:41)
[2019-11-09] MEDS: AZITHROMYCIN 250 MG TABLET 500 MG PO (09:35)
[2019-11-09] MEDS: BACLOFEN 10 MG TABLET PO ×2 (09:36→17:41)
[2019-11-09] MEDS: CHOLECALCIFEROL 1,000 UNIT TABLET 2000 UNITS PO (09:36)
[2019-11-09] MEDS: FLUTICASONE PROPIONATE 0.05% NA SPR 16 GM BTL (*BKC) 2 SPRAY NASAL (09:36)
[2019-11-09] MEDS: lisinopriL 2.5 MG TABLET PO (09:37)
[2019-11-09] MEDS: MELOXICAM 7.5 MG TABLET 15 MG PO (09:37)
[2019-11-09] MEDS: GABAPENTIN 300 MG CAPSULE PO ×3 (09:37→17:41)
[2019-11-09] MEDS: FUROSEMIDE 20 MG TABLET PO ×2 (09:37→17:42)
[2019-11-09] MEDS: ROFLUMILAST 500 MCG TABLET PO (09:38)
[2019-11-09] MEDS: TAMSULOSIN HCL 0.4 MG CAPSULE PO ×2 (09:38→17:41)
[2019-11-09] MEDS: MONTELUKAST SODIUM 10 MG TABLET PO (09:38)
[2019-11-09] MEDS: predniSONE 10 MG TABLET PO ×2 (09:38→17:42)
--- NOTE | 2019-11-09 11:16 | WPDNEURORHBP ---
Subjective Date/time seen: 11/09/19 11:16 Interval history: This patient is here in acute rehab after having had kyphoplasty performed for multiple vertebral fractures He also has chronic obstructive lung disease for which he is requiring oxygen at home prior to coming to us his going to be evaluated for home oxygen program and ready to be discharged later this afternoon to goals have been achieved he does not have any new specific complaints Review of Systems Constitutional: Constitutional: Reports no additional constitutional complaints Eyes: Eyes: Reports no additional eye complaints ENT: Reports system reviewed and no additional complaints, except as documented Cardiovascular: Cardiovascular: Reports no additional cardiovascular complaints Respiratory: Respiratory: Reports no additional respiratory complaints Gastrointestinal: Gastrointestinal: Reports no additional gastrointestinal complaints Genitourinary: Genitourinary: Reports no additional male genitourinary complaints Musculoskeletal: Musculoskeletal: Reports no additional musculoskeletal complaints Integumentary/Breasts: Skin/Breast: Reports system reviewed and no additional complaints, except as docu Neurologic: Reports system reviewed and no additional complaints, except as documented Psychiatric: Psychiatric: Reports no additional psychiatric complaints Functional Status Ambulation Ability Ability to Ambulate 10 Feet: Independent Ability to Ambulate 50 Feet With 2 Turns: Independent Ability to Ambulate 150 Feet: Independent Ambulation Assistive Devices: Walker, Wheeled Transfers Ability Ability to Transfer In/Out of Chair: Independent Exam Const: General: comfortable and no acute distress HENMT: General nose exam: Normal nares present Mouth: Yes moist mucous membranes Eyes: General: appearance normal, both eyes and all related structures Neck: Neck: supple and no JVD Resp: Effort & Inspection: normal respiratory effort Auscultation: rhonchi Other: bilateral rhonchi remains roughly about the same as the patient is chronic obstructive lung disease Cardio: Rate: regular rate Rhythm: regular rhythm GI: GI Palp: Yes Soft to palpation Auscultation: normal bowel sounds Skin: General skin exam: normal color and no rashes or lesions noted Neuro: Other: significantly improved strength in both upper lower extremities ambulating with the walker around the halls without any effort Extrem: General: normal to inspection Objective Data Vital Signs Vital Signs: Vital Signs - 24 hr 11/08/19 14:00 11/08/19 14:56 11/08/19 15:06 Temperature 37.1 C Pulse Rate 100 97 101 H Respiratory Rate 20 20 20 Blood Pressure 95/50 L Pulse Oximetry 97 11/08/19 20:20 11/08/19 21:18 11/08/19 21:19 Temperature 36.7 C Pulse Rate 99 84 Respiratory Rate 18 16 Blood Pressure 124/74 Pulse Oximetry 100 97 11/08/19 21:28 11/09/19 03:33 11/09/19 03:44 Temperature Pulse Rate 89 112 H 118 H Respiratory Rate 16 18 18 Blood Pressure Pulse Oximetry 11/09/19 06:00 11/09/19 08:55 11/09/19 09:05 Temperature 36.8 C Pulse Rate 98 88 85 Respiratory Rate 24 H 20 18 Blood Pressure 124/69 Pulse Oximetry 98 99 Intake/Output Intake/Output: Intake & Output 11/06/19 11/07/19 11/08/19 11/09/19 23:59 23:59 23:59 23:59 Intake Total 800 500 930 300 Balance 800 500 930 300 Meds/Results Medications: Active Medications Generic Name Dose Route Start Last Admin Trade Name Freq PRN Reason Stop Dose Admin Acetaminophen 500 mg 10/31/19 19:00 Tylenol Tablet PO Q4H PRN Mild Pain (1-3) or Fever Hydrocodone Bitart/Acetaminophen 1 tab 10/31/19 18:59 11/08/19 11:29 [place] 5-325 Mg PO 1 tab Q8H PRN Administration Pain Rated 4-6 Albuterol 2 puff 10/31/19 18:48 11/01/19 21:57 Proventil Hfa INHALATION 2 puff Q6H PRN Administration Wheezing Albuterol 2.5 mg 11/02/19 02:00 11/09/19 08:55
--- NOTE | 2019-11-09 16:00 | HOMEO2EVAL ---
Home Oxygen Evaluation RC: Home Oxygen (O2) Evaluation Start: 11/09/19 14:00 Freq: ONCE Status: Active Protocol: RPE Activity Type Activity Date Activity User E-Sign Co-Sign Detail Recorded Client Recorded Date Recorded By Document 11/09/19 15:30 [email or web address] 11/09/19 15:59 DARCIE Document 11/09/19 15:33 [email or web address] [email or web address] 11/09/19 15:59 DARCIE Document 11/09/19 15:35 [email or web address] [email or web address] 11/09/19 15:59 DARCIE Document 11/09/19 15:37 [email or web address] [email or web address] 11/09/19 15:59 DARCIE Document 11/09/19 15:38 [email or web address] [email or web address] 11/09/19 15:59 DARCIE Document 11/09/19 15:45 [email or web address] [email or web address] 11/09/19 15:59 DARCIE 11/09/19 11/09/19 11/09/19 15:30 15:33 15:35 Home O2 Evaluation Test Phase Resting Resting Resting Oxygen Delivery Room Air Nasal Cannula Nasal Cannula Oxygen Flow Rate (L/min) 1 2 Pulse Oximetry (90-100 %) 86 L 87 L 91 Pulse Rate (60-100 beats/min) 100 Home Oxygen Evaluation Comments Treatment Charges O2 Evaluation 11/09/19 11/09/19 11/09/19 15:37 15:38 15:45 Home O2 Evaluation Test Phase Exercise Exercise Resting Oxygen Delivery Nasal Cannula Nasal Cannula Nasal Cannula Oxygen Flow Rate (L/min) 2 3 2 Pulse Oximetry (90-100 %) 87 L 91 93 Pulse Rate (60-100 beats/min) Home Oxygen Evaluation Comments PT REQUIRES 2 AT REST AND 3 WITH ACTIVITY Treatment Charges
--- NOTE | 2019-11-09 16:01 | PCRCNOTE ---
PT HAS EXISTING HOME O2 WITH [facility]. HOME O2 EVAL COMPLETED TO UPDATE O2 NEEDS. CURRENT O2 NEEDS ARE 2 AT REST AND 3 WITH ACTIVITY. [facility] BROUGHT IN A TANK FOR TRANSPORT TO HOME. DAUGHTER STATES SHE IS BRINGING PT CONCENTRATOR FROM HIS HOME TO HERS. I WILL FAX [facility] AND ASK THEM TO FOLLOW UP WITH PT TO ENSURE HE HAS ALL REQUIRED HOME O2 EQUIPMENT.
[2019-11-09] MEDS: LORATADINE 10 MG TABLET PO (17:53)
--- NOTE | 2019-11-14 12:02 | PM.DS ---
DS: Diagnosis Admitting Diagnosis Admitting Diagnosis: Wedge compression fracture of T5-T6 vertebra, initial encounter for closed fracture Discharge Diagnosis (1) BPH (benign prostatic hyperplasia): Code(s): N40.0 - Benign prostatic hyperplasia without lower urinary tract symptoms Status: Acute (2) Congestive heart failure: Code(s): I50.9 - Heart failure, unspecified Status: Acute (3) Dilated idiopathic cardiomyopathy: Code(s): I42.0 - Dilated cardiomyopathy Status: Acute (4) Anxiety: Code(s): F41.9 - Anxiety disorder, unspecified Status: Acute (5) Atrial fib/flutter, transient: Status: Acute (6) COPD (chronic obstructive pulmonary disease): Code(s): J44.9 - Chronic obstructive pulmonary disease, unspecified Status: Acute (7) S/P kyphoplasty: Code(s): Z98.890 - Other specified postprocedural states Status: Acute (8) L3 vertebral fracture: Code(s): S32.039A - Unspecified fracture of third lumbar vertebra, initial encounter for closed fracture Status: Acute (9) T9 vertebral fracture: Code(s): S22.079A - Unspecified fracture of T9-T10 vertebra, initial encounter for closed fracture Status: Acute (10) T6 vertebral fracture: Code(s): S22.059A - Unspecified fracture of T5-T6 vertebra, initial encounter for closed fracture Status: Acute (11) T5 vertebral fracture: Code(s): S22.059A - Unspecified fracture of T5-T6 vertebra, initial encounter for closed fracture Status: Acute DS: Summary Hospital Course Reason for hospitalization: This 74-year-old right-handed male was admitted with a history of T5-T6 T9 and L3 fractures with kyphosis followed by kyphoplasty he had underlying issues of COPD being on oxygen hypertension and chronic back pain Hospital Course: patient beside receiving the medical management of his underlying medical issues received the physical therapy of compression therapy and gait training and was able to be sent home with home health program no falls were according to the course of hospital He was able to achieved the following independent measures eating independent, oral hygiene independent, toileting independent, bathing setup upper body dressing set up lower body dressing set up foot fair set up rolling in bed independent sitting to lying independent lying to sitting independent sit to stand independent check transfers independent 12 transfers independent car transfers independent walking 10 feet independent walking 50 feet with to turns independent walking 150 feet independent walking 10 feet uneven surfaces independent car but or set up independent 4 steps independent 12 steps independent picking up objects independent The patient's original admission functional independent measures and the goal were already recorded in the initial H and P performed by my partner Dr. Leone Status at Discharge Cognitive/behavioral status at discharge: within the normal range Time Spent with Patient Time attestation: Total time spent providing and/or coordinating discharge services: Exam Const: General: comfortable and no acute distress HENMT: General nose exam: Normal nares present Mouth: Yes dry mucous membranes Eyes: General: appearance normal, both eyes and all related structures Neck: Neck: supple and no JVD Resp: Auscultation: rhonchi Other: patient is chronic COPD and has more less rhonchi most of the time Cardio: Rate: regular rate Rhythm: regular rhythm GI: GI Palp: Yes Soft to palpation Auscultation: normal bowel sounds Skin: General skin exam: normal color Neuro: Other: patient's neurological examination was nonfocal and he was back to his baseline and 1 can see the functional independent measures Extrem: General: normal to inspection DS: Data Data Completed and Pending Completed studies during hospitalization: patient's white [place] was 45039 hemoglobin of 9.4 hematocrit 2
== END 2019-11-09 19:08 | disposition home health service (06) | DRG 560 ==
PROVIDERS: Admitting Provider Psychiatry & Neurology Neurology; Visit Provider Psychiatry & Neurology Neurology
DX: S22.050D Wedge compression fracture of T5-T6 vertebra, subsequent encounter for fracture with routine healing (principal); I42.0 Dilated cardiomyopathy; I47.2 Ventricular tachycardia; D62 Acute posthemorrhagic anemia; S22.070D Wedge compression fracture of T9-T10 vertebra, subsequent encounter for fracture with routine healing; S32.030D Wedge compression fracture of third lumbar vertebra, subsequent encounter for fracture with routine healing; F17.210 Nicotine dependence, cigarettes, uncomplicated; F41.9 Anxiety disorder, unspecified; G62.9 Polyneuropathy, unspecified; G89.29 Other chronic pain; I50.9 Heart failure, unspecified; I11.0 Hypertensive heart disease with heart failure; I48.91 Unspecified atrial fibrillation; J44.9 Chronic obstructive pulmonary disease, unspecified; M54.14 Radiculopathy, thoracic region; M40.209 Unspecified kyphosis, site unspecified; N40.0 Benign prostatic hyperplasia without lower urinary tract symptoms; R05 Cough; W19.XXXD Unspecified fall, subsequent encounter; Z87.01 Personal history of pneumonia (recurrent); Z79.52 Long term (current) use of systemic steroids
CPT/HCPCS: 36415; 80048; 85025; 87081; 93005; 94618; 94640; 97110; 97116; 97150; 97165; 97530; 97535; 97542; A9270; J7512

== ENCOUNTER 2019-11-21 13:41 | Emergency (ER) | payer MEDICARE, MEDICAID, SELFPAY ==
--- NOTE | ~2019-11-21 | XR_ITS ---
EXAMINATION: XR thoracic spine 3V DATE: 11/21/2019 15:02 INDICATION: Back pain TECHNIQUE: AP, lateral and lateral swimmer's views of the thoracic spine were obtained. COMPARISON: None. FINDINGS: There is vertebral plasty change at T5, T6, and T9. There is subtle superior endplate abnor mality of T11 with approximately 30% loss of anterior vertebral body height. Vertebral body alignment is normal. There is mild loss of intervertebral disc space height throughout the thoracic spine. IMPRESSION: 1. Age-indeterminate compression fracture of T11 with approximately 30% loss of vertebral body height . 2. Vertebroplasty change at T5, T6, and T9. Reviewed, dictated and finalized at location A. [employer]MENT STORE GENERAL MANAGER IMPRESSION: 1. Age-indeterminate compression fracture of T11 with approximately 30% loss of vertebral body height. 2. Vertebroplasty change at T5, T6, and T9.
--- NOTE | ~2019-11-21 | XR_ITS ---
EXAMINATION: XR lumbar spine 2-3V DATE: 11/21/2019 15:02 INDICATION: Back pain after fall TECHNIQUE: Anteroposterior and lateral views of the lumbar spine, and cone-down lateral view of the l umbosacral junction were obtained. COMPARISON: None. FINDINGS: There are vertebroplasty changes at L3. No acute lumbar fracture is identified. Vertebral b georgie alignment is normal. There is mild loss of intervertebral disc space height throughout the lumbar spine. Moderate facet osteoarthritis is seen in the lower lumbar spine. There is calcified atheroscl erosis. IMPRESSION: 1. Vertebroplasty change at L3. No acute fracture identified. Mild spondylosis. Reviewed, dictated and finalized at location A. LAINT SPECIALIST
[2019-11-21 13:47] VITALS: BP 125/81; PULSE 91; RESP 18; TEMP 36.8; O2SAT 96
--- NOTE | 2019-11-21 14:15 | ED.BACK ---
HPI - Back Pain/Injury General Chief Complaint: Back Pain/Injury Stated Complaint: back pain Time Seen by Provider: 11/21/19 14:15 Source: patient Mode of arrival: EMS Limitations: no limitations History of Present Illness HPI Narrative: A 74 y/o male presents to the ED, via EMS, with c/o chronic lower back pain that worsened today after a fall. Pt states that he used the restroom at 11:00 AM when he suddenly fell down on my bottom. Pt has a history of falls with the most recent one before today occurring a few months ago. Pt had an MRI done in [place] at the time that showed my vertebra were messed up so he had a kyphoplasty procedure. Pt is a PMHx of COPD and is on 3L of oxygen at home. Pt notes that he quit smoking 6 months ago. Pt lives at home with family. He denies a fever, chills, and N/V. Patient reports having kyphoplasty and 1 of the hospitals. Patient been to many hospitals. He states that his orthopedic fired him. Patient reported having a lot of x-ray and MRI of his back in the past. Pertinent past history: prior back pain and back surgery (kyphoplasty) Onset (ago): hour(s) (11:00 AM) Context: fall Related Data Home Medications Medication Instructions Recorded Confirmed polyethylene glycol 3350 [Miralax] 17 g PO DAILY 10/31/19 11/19/19 Allergies Allergy/AdvReac Type Severity Reaction Status Date / Time aspirin Allergy Unknown Verified 11/21/19 13:47 Seasonal Allergies Allergy Unknown Uncoded 10/31/19 19:14 Review of Systems Review of Systems: All systems reviewed & are unremarkable except as noted in HPI and below Constitutional: Constitutional: Denies chills and Denies fever(s) Comments: Reports: a fall Gastrointestinal: Gastrointestinal: Denies nausea and Denies vomiting Musculoskeletal: Musculoskeletal: Reports back pain (lower) [facility] Past Medical History Medical History (Updated 11/21/19 @ 17:56 by Edward Mancia MD) Anxiety Atrial fib/flutter, transient BPH (benign prostatic hyperplasia) Chronic pain Chronic respiratory failure with hypoxia Congestive heart failure Constipation due to opioid therapy COPD (chronic obstructive pulmonary disease) Dilated idiopathic cardiomyopathy On home O2 3L Surgical History Surgical History S/P kyphoplasty Family History Family History Father Acute myocardial infarction Social History Social History Social History: Smoking status: Former smoker Tobacco type: cigarettes Second hand tobacco smoke exposure: No Smoking end date: 06/25/20 Additional smoking assessment comments: smoked for 64 years/ 1 pack a day Alcohol intake: former Drinks per week: 14 Substance use: never Substance use type: does not use Gender identity (if verbalized by the patient): Male Spiritual care concerns: No Agree to blood products: Yes Comments No PCP on file. Exam Narrative: Exam Narrative: General appearance: Well-developed, underweight, patient laying down in bed, nasal cannula on, no family member at the bedside Skin: Normal color Head: Normocephalic, nontraumatic Eyes: Clear conjunctiva ENT: Oropharynx normal, ears normal, nose normal Neck: Supple, nontender Chest and respiratory: Airway patent, no respiratory distress, no accessory muscle use Heart: Regular rate/rhythm Abdomen: Soft, nontender, no organomegaly, quiet bowel sounds Vascular: Normal peripheral pulses, normal capillary refill. Musculoskeletal: Back exam showed a kyphosis, no local tenderness, limited range of motion at the thoracic and lumbar spine, no bruises, no swelling, no rash Neurologic: Alert and oriented ?3, WAREHOUSE DELIVERY MANAGER is normal as tested, no gross motor deficit
[2019-11-21 15:06] VITALS: BP 110/69; PULSE 91; RESP 16; O2SAT 100
[2019-11-21] MEDS: MORPHINE SULFATE 4 MG/ML INJ (15:06)
[2019-11-21] MEDS: ONDANSETRON HCL ODT 4 MG TABLET PO (15:06)
[2019-11-21 17:02] VITALS: BP 99/52; PULSE 88; RESP 16; O2SAT 98
[2019-11-21 17:37] VITALS: BP 104/55; PULSE 90; RESP 18; O2SAT 97
[2019-11-21 17:56] VITALS: BP 104/55; PULSE 110; RESP 21; O2SAT 100
== END 2019-11-21 18:10 | disposition home or self-care (01) ==
PROVIDERS: Emergency Provider Emergency Medicine; PCP Family Medicine
DX: M54.5 Low back pain (principal); M54.6 Pain in thoracic spine; S22.089D Unspecified fracture of T11-T12 vertebra, subsequent encounter for fracture with routine healing; Z87.891 Personal history of nicotine dependence; N40.0 Benign prostatic hyperplasia without lower urinary tract symptoms; I50.9 Heart failure, unspecified; J44.9 Chronic obstructive pulmonary disease, unspecified; Z99.81 Dependence on supplemental oxygen; M47.816 Spondylosis without myelopathy or radiculopathy, lumbar region; X58.XXXD Exposure to other specified factors, subsequent encounter
CPT/HCPCS: 72072; 72100; 96372; 99283; A9270; J2270

== ENCOUNTER → 2019-12-01 13:09 | Outpatient (CLI) | payer MEDICARE, MEDICAID, SELFPAY ==
--- NOTE | ~2019-12-01 | MR_ITS ---
EXAMINATION: MR lumbar spine wo con DATE: 12/01/2019 13:54 INDICATION: Low back pain. Left leg pain. TECHNIQUE: Magnetic resonance imaging (MRI) of the lumbar spine was performed without intravenous con trast. Sequences included sagittal T2-weighted FSE, sagittal T2-weighted FS FSE, sagittal T1-weighted FSE, and axial T2-weighted FSE. COMPARISON: Lumbar and thoracic spine radiographs 11/21/2019 FINDINGS: There is 5 degrees levocurvature of lumbar spine. There is a compression fracture of L3 wit h changes of vertebroplasty. There is a burst fracture of superior endplate of T12 with less than 1/5 loss of height, low signal fracture line, and bone marrow edema. There is a burst fracture of superi or endplate of T11 with 2/5 loss of height, low signal fracture lines, and bone marrow edema. Interve rtebral disc heights are normal. The distal spinal cord signal intensity is normal. The conus medulla ris is at L1-L2. The following disc levels are specifically discussed: L1-L2: The disc is bulging and has an annular fissure. There is mild bilateral facet joint osteoarthr itis. There is moderate bilateral neural foraminal stenosis. There is mild central canal stenosis. L2-L3: The disc is bulging. There is moderate bilateral facet joint osteoarthritis. There is moderate bilateral neural foraminal stenosis. There is mild central canal stenosis. L3-L4: The disc is bulging and has an annular fissure. There is mild bilateral facet joint osteoarthr itis. There is mild bilateral neural foraminal stenosis. There is mild central canal stenosis. L4-L5: The disc is bulging. There is moderate right and mild left facet joint osteoarthritis. There i s moderate bilateral neural foraminal stenosis. There is mild central canal stenosis. L5-S1: The disc is bulging. There is severe bilateral facet joint osteoarthritis. There is mild bilat eral neural foraminal stenosis. There is mild central canal stenosis. IMPRESSION: 1. Subacute T11 burst fracture, unchanged from 11/21/2019. 2. Acute/subacute T12 burst fracture, new from 11/21/2019. 3. Moderate lumbar spondylosis. Reviewed, dictated and finalized at location A. 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
== END ==
PROVIDERS: Visit Provider Physician Assistant Medical
DX: M47.26 Other spondylosis with radiculopathy, lumbar region (principal); S22.081D Stable burst fracture of T11-T12 vertebra, subsequent encounter for fracture with routine healing; X58.XXXD Exposure to other specified factors, subsequent encounter
CPT/HCPCS: 72148

== ENCOUNTER 2020-01-21 14:07 | Outpatient (CLI) | payer MEDICARE, SELFPAY ==
[2020-01-21 14:41] LABS: Basophils Percent Auto 0.3 % (0.2-1.2); Eosinophils Percent Auto 0.1 % (0-4.4); Hematocrit 36.7 % (42.0-52.0); Hemoglobin 11.7 g/dL (14.0-18.0); Immature Granulocyte Absolute 0.15 K/mm3 (0.00-0.031); Immature Granulocyte Percent A 1.3 % (0-0.5); Lymphocytes Absolute Auto 1.08 K/mm3 (0.9-3.2); Lymphocytes Percent Auto 9.7 % (18.3-44.2); Mean Corpuscular HGB Conc 31.9 g/dl (32-36); Mean Corpuscular Hemoglobin 31.5 pg (26-34); Mean Corpuscular Volume 98.7 fl (80-100); Mean Platelet Volume 9.8 fl (7.4-10.4); Monocytes Absolute Auto 0.9 K/mm3 (0.1-0.6); Monocytes Percent Auto 8.1 % (2.6-8.5); Neutrophils Percent Auto 80.5 % (45.5-73.1); Platelet Count Result 303 k/mm3 (150-375); Red Blood Count 3.72 M/mm3 (4.6-6.20); Red Cell Distribution Width 13.7 % (11.5-14.5); White Blood Count 11.2 K/mm3 (4.5-10.0)
[2020-01-21 14:55] LABS: Alanine Aminotransferase 15 U/L (4-50); Albumin Level 3.8 g/dL (3.5-5.1); Alkaline Phosphatase 65 U/L (38-126); Aspartate Amino Transferase 21 U/L (17-59); Bilirubin,Total 0.3 mg/dL (0.2-1.3); Blood Urea Nitrogen 28 mg/dL (9-20); Carbon Dioxide 35 mmol/L (22-30); Chloride 92 mmol/L (98-107); Estimated Glomerular Filt Rate > 60; Glucose 130 mg/dL (75-110); Potassium 3.5 mmol/L (3.4-5.0); Sodium 132 mmol/L (137-145)
== END 2020-01-21 14:08 | disposition home or self-care (01) ==
PROVIDERS: PCP Family Medicine; Visit Provider Family Medicine
DX: D64.9 Anemia, unspecified (principal); E87.1 Hypo-osmolality and hyponatremia; M25.50 Pain in unspecified joint
CPT/HCPCS: 36415; 80053; 84550; 85025

== ENCOUNTER 2020-03-02 08:28 | Outpatient (CLI) | payer MEDICARE, MEDICAID, SELFPAY ==
--- NOTE | ~2020-03-02 | MR_ITS ---
EXAMINATION: MR lumbar spine wo con DATE: 03/02/2020 10:10 INDICATION: Lumbar radiculopathy. TECHNIQUE: Magnetic resonance imaging (MRI) of the lumbar spine was performed without intravenous con trast. Sequences included sagittal T2-weighted FSE, sagittal T2-weighted FS FSE, sagittal T1-weighted FSE, and axial T2-weighted FSE. COMPARISON: Lumbar spine MRI 12/01/2019 FINDINGS: There is 6 degrees levocurvature of lumbar spine. There is a burst fracture of T11 with 2/5 loss of height, bone marrow edema, and changes of vertebroplasty. There is a burst fracture of T12 w ith 2/5 loss of height, bone marrow edema, and retropulsion of bone 2 mm into central spinal canal. T here is a burst fracture of L1 with 1/5 loss of height, bone marrow edema, and retropulsion of bone 2 mm into central spinal canal. There is a compression fracture of L3 with 2/5 loss of height centrall y and changes of vertebroplasty. Intervertebral disc heights are normal. The distal spinal cord signa l intensity is normal. The conus medullaris is at L1. The following disc levels are specifically disc ussed: L1-L2: The disc is bulging and has an annular fissure. There is mild bilateral facet joint osteoarthr itis. There is moderate bilateral neural foraminal stenosis. There is mild central canal stenosis. L2-L3: The disc is bulging. There is mild bilateral facet joint osteoarthritis. There is moderate wayne ateral neural foraminal stenosis. There is mild central canal stenosis. L3-L4: The disc is mildly bulging. There is mild bilateral facet joint osteoarthritis. There is mild right neural foraminal stenosis. There is no central canal stenosis. L4-L5: The disc is mildly bulging. There is mild bilateral facet joint osteoarthritis. There is mild bilateral neural foraminal stenosis. There is mild central canal stenosis. L5-S1: The disc is bulging and has an annular fissure. There is severe bilateral facet joint osteoart hritis. There is mild bilateral neural foraminal stenosis. There is mild central canal stenosis. IMPRESSION: 1. Acute/subacute burst fracture of L1, new from 12/01/2019. 2. Subacute burst fracture of T12, worsened from 12/01/2019. 3. Moderate lumbar spondylosis. Reviewed, dictated and finalized at location A.
--- NOTE | ~2020-03-02 | MR_ITS ---
EXAMINATION: MR thoracic spine wo con DATE: 03/02/2020 09:43 INDICATION: Thoracic radiculopathy. TECHNIQUE: Magnetic resonance imaging (MRI) of the thoracic spine was performed without intravenous c ontrast. Sagittal localizer T1-weighted FSE of the cervical spine was obtained. Thoracic spine sequen [place] included sagittal T2-weighted FSE, sagittal T1-weighted FSE, sagittal STIR FSE, and axial T2-weig hted FSE. COMPARISON: Thoracic spine radiographs 11/21/2019, lumbar spine MRI 12/01/2019 FINDINGS: There is 7 degrees levocurvature of thoracic spine. There is kyphosis of thoracic spine. Th ere is 2 mm retrolisthesis of C5 on C6. There is a chronic compression fracture of T5 with changes of vertebroplasty. There are chronic burst fractures of T6 and T9 with changes of vertebroplasty. There is a burst fracture of T11 with 2/5 loss of height, bone marrow edema, and changes of vertebroplasty . There is a burst fracture of T12 with 2/5 loss of height, bone marrow edema, and retropulsion of ana paula ne 2 mm into central spinal canal. There is a burst fracture of L1 with 1/5 loss of height, bone aristides ow edema, and retropulsion of bone 2 mm into central spinal canal. Intervertebral disc heights are no rmal. There is multilevel facet joint osteoarthritis. There is multilevel mild neural foraminal steno sis bilaterally. On the right, there is moderate neural foraminal stenosis at T1-T2, T2-T3, T6-T7, an d T9-T10. On the left, there is moderate neural foraminal stenosis at T1-T2 and T9-T10. At T5-T6, the disc is bulging with mild central canal stenosis. There is mild central canal stenosis at T6, T9, T1 1, T12, and L1. The spinal cord signal intensity is normal. IMPRESSION: 1. Acute/subacute burst fracture of L1, new from 12/01/2019. 2. Subacute burst fracture of T12, worsened from 12/01/2019. 3. Moderate thoracic spondylosis. Reviewed, dictated and finalized at location A.
== END 2020-03-02 08:29 | disposition home or self-care (01) ==
PROVIDERS: PCP Family Medicine; Visit Provider Nurse Practitioner Adult Health
DX: M81.0 Age-related osteoporosis without current pathological fracture (principal); M47.894 Other spondylosis, thoracic region; S22.081D Stable burst fracture of T11-T12 vertebra, subsequent encounter for fracture with routine healing; X58.XXXD Exposure to other specified factors, subsequent encounter; M47.26 Other spondylosis with radiculopathy, lumbar region
CPT/HCPCS: 72146; 72148

== ENCOUNTER 2020-03-03 08:08 | Outpatient (CLI) | payer MEDICARE, MEDICAID, SELFPAY ==
--- NOTE | ~2020-03-03 | XR_ITS ---
EXAMINATION: XR thoracic spine 2V DATE: 03/03/2020 09:11 INDICATION: Thoracic radiculopathy TECHNIQUE: One AP, lateral and lateral swimmer's views of the thoracic spine were obtained. COMPARISON: Thoracic spine MR dated 03/02/2020 and radiographs dated 11/21/2019 FINDINGS: Thoracic kyphosis. Chronic compression fracture with change of vertebroplasty at T5. Additional burst fractures with change of prior vertebroplasty at T6, T9 and T11 and without vertebral plasties at T1 2 and L1. These appear unchanged compared with the MRI from one day prior however the vertebroplasty at T11 as well as the previous fractures at T12 and L1 appear new since the prior radiographs on 11/17. See MRI report for quantitative assessment of degree of vertebral body height loss and retropu lsion at each level. There is mild disc height loss and degenerative endplate changes at several leve ls in the mid thoracic spine. Moderate cervical spondylosis. Mild right apical pleural-parenchymal sc arring. Heart size is normal. Atherosclerotic aorta. IMPRESSION: 1. Thoracic kyphosis with chronic compression and burst fractures with vertebroplasties at T5, T6 and T9, burst fracture with recent vertebroplasty at T11 and with acute to subacute burst fractures at T 12 and L1 which are new since 11/21/2019. See MRI report for further detail. Reviewed, dictated and finalized at location D. IMPRESSION: 1. Thoracic kyphosis with chronic compression and burst fractures with vertebro plasties at T5, T6 and T9, burst fracture with recent vertebroplasty at T11 and with acute to subacute burst fractures at T12 and L1 which are new since 2019. See MRI report for further detail.
--- NOTE | ~2020-03-03 | XR_ITS ---
EXAMINATION: XR lumbar spine 2-3V DATE: 03/03/2020 09:10 INDICATION: Lumbar radiculopathy TECHNIQUE: Anteroposterior and lateral views of the lumbar spine, and cone-down lateral view of the l umbosacral junction were obtained. COMPARISON: 11/21/2019 FINDINGS: Vertebroplasty change is present at L3. There is interval vertebroplasty change at T11. A T 12 burst fracture has developed since the prior examination with 2/5 loss of vertebral body height. T here is also a new L1 burst fracture with one third loss of vertebral body height. There is mild loss of intervertebral disc space height throughout the lumbar spine. Moderate to severe facet osteoarthr itis is noted in the lower lumbar spine. There is calcified atherosclerosis. IMPRESSION: 1. Burst fractures of T12 and L1, new since the prior radiographs. 2. Interval vertebroplasty change at T11. 3. Moderate spondylosis. Reviewed, dictated and finalized at location A.
--- NOTE | ~2020-03-03 | DEXA_ITS ---
Bone Density Report Name: Aamir Cortez Age: 74 Sex: Male Ethnicity: White Date of : 1945 Indication: height loss; prior fracture; Referring Provider: Dionte, Denise Cheatham Study: Bone densitometry was performed. Exam Date: March 03, 2020 Accession number: [id number] Bone Density: Region BMD T-score Z-score Classification AP Spine (L1, L2, L4) 0.674 -3.8 -2.7 Osteoporosis Femoral Neck (Left) 0.474 -3.4 -1.9 Osteoporosis Total Hip (Left) 0.621 -2.7 -1.8 Osteoporosis Total Hip Bilateral Avg 0.592 -2.9 -2.0 Osteoporosis Femoral Neck (Right) 0.433 -3.7 -2.3 Osteoporosis Total Hip (Right) 0.562 -3.1 -2.2 Osteoporosis World Health Organization criteria for BMD impression classify patients as: Normal (T-score at or above -1.0), Osteopenia (T-score between -1.0 and -2.5), or Osteoporosis (T-score at or below -2.5). 10-year Fracture Risk: FRAX not reported because: Some T-score for Spine Total or Hip Total or Femoral Neck at or below -2.5 Prior hip or vertebral fracture Clinical Information Provided by Patient: Have had a previous hip or vertebral fracture Has had a low trauma fracture Has used the following medications: Vitamin D Patient maximum height was 66 No regular weight bearing exercise Drinks caffeinated beverages Impression: The patient has established osteoporosis, based on the Total Spine T-score and the existence of a prior fracture. The patient has risk factors, including: previous fracture. Discussion: HIGH RISK OF FRACTURE. BONE DENSITY IS UNDESIRABLY LOW AT ONE OR MORE SKELETAL SITES, CONSISTENT WITH OSTEOPOROSIS. This patient's lowest T-score, in a patient who has previously fractured, meets the World Health Organization's (WHO) criteria for severe osteoporosis. In untreated patients, the risk of osteoporotic fracture increases approximately two-fold for each 1.0 SD decrease in T-score. Low bone density is not the only risk factor for fracture; also consider factors such as patient's age, frailty or poor health, risk of falling, risk of injury, previous osteoporotic fracture, family history of osteoporosis, cigarette smoking, low body weight, etc. Not everyone with low bone mineral density has osteoporosis; osteomalacia and other metabolic bone disorders should also be considered. Patients who have osteoporosis should be evaluated for specific diseases and conditions (secondary causes) that may cause or contribute to bone loss. The National Osteoporosis Foundation (NOF) recommends pharmacologic intervention for men with BMD at this level (a T-score of -2.5 or below). The patient should follow a healthful lifestyle (good nutrition with adequate calcium and vitamin D, and appropriate weight-bearing exercise). Follow-Up: Consider a repeat BMD and Vertebral Fracture Assessment (VFA) exam in 2 years or sooner if
== END 2020-03-03 08:09 | disposition home or self-care (01) ==
LOC: ANHIMG 08:10
PROVIDERS: PCP Family Medicine; Visit Provider Nurse Practitioner Adult Health
DX: M81.0 Age-related osteoporosis without current pathological fracture (principal); M47.896 Other spondylosis, lumbar region
CPT/HCPCS: 72070; 72100; 77080

== ENCOUNTER 2020-03-18 04:36 | Inpatient (IN) | payer MEDICARE, MEDICAID, SELFPAY ==
[2020-03-18] VITALS (24 sets, daily range): BP systolic 74–128; BP diastolic 42–75; PULSE 73–156; RESP 16–30; TEMP 35.3–37.6; O2SAT 94–100; BMI 14.8
--- NOTE | ~2020-03-18 | XR_ITS ---
EXAMINATION: XR chest 1V portable INDICATION: Shortness of breath TECHNIQUE: Portable AP chest at 0513 hours COMPARISON: None available FINDINGS: The lungs are free of acute opacities. There is no pleural effusion or pneumothorax. The ca rdiomediastinal silhouette is normal. Vertebroplasty changes noted at multiple levels in the thoracic spine. IMPRESSION: 1. No acute cardiopulmonary abnormality. Reviewed, dictated and finalized at location A.
--- NOTE | 2020-03-18 04:41 | ED.SOB ---
HPI - SOB/Dyspnea General Chief Complaint: Shortness of Breath/Dyspnea Stated Complaint: sob, fever Time Seen by Provider: 03/18/20 04:38 History of Present Illness HPI Narrative: Awoke from sleep early this morning feeling weak and short of breath. Called EMS. Found to be hypoxic on baseline 2 liters O2 and had a fever of 102. He was turned up to 4 liters and O2 saturation improved. He denies pain, nausea, dysuria. Related Data Allergies Allergy/AdvReac Type Severity Reaction Status Date / Time aspirin Allergy Unknown Verified 03/18/20 04:47 Seasonal Allergies Allergy Unknown Uncoded 01/21/20 13:20 Review of Systems Review of Systems: All systems reviewed & are unremarkable except as noted in HPI and below Constitutional: Constitutional: Reports fever(s) and Reports weakness ENT: Denies sore throat Cardiovascular: Cardiovascular: Denies chest pain Respiratory: Respiratory: Reports dyspnea Gastrointestinal: Gastrointestinal: Denies abdominal pain Genitourinary: Genitourinary: Denies hematuria and Denies dysuria [facility] Past Medical History Medical History Abnormal gait due to muscle weakness Anxiety Atrial fib/flutter, transient BPH (benign prostatic hyperplasia) Chronic anemia Chronic pain Chronic pain disorder Chronic respiratory failure with hypoxia Congestive heart failure Constipation due to opioid therapy COPD (chronic obstructive pulmonary disease) Dilated idiopathic cardiomyopathy AALIYAH (generalized anxiety disorder) Malnutrition On home O2 3L Surgical History Surgical History Previous back surgery S/P kyphoplasty Family History Family History Father Acute myocardial infarction Social History Social History Social History: Smoking status: Former smoker Tobacco type: cigarettes Second hand tobacco smoke exposure: No Smoking end date: 06/25/20 Additional smoking assessment comments: smoked for 64 years/ 1 pack a day Alcohol intake: former Drinks per week: 14 Substance use: never Substance use type: does not use Gender identity (if verbalized by the patient): Male Spiritual care concerns: No Agree to blood products: Yes Exam Const: General: alert and ill appearing acutely and chronically Orientation/consciousness: patient oriented x3 Other: Mild distress HENMT: Head: normal to inspection Chest: Chest palpation & inspection: normal inspection of the chest Resp: Effort & Inspection: tachypneic Auscultation: diminished lung sounds Cardio: Rate: tachycardic Rhythm: abnormal rhythm irregularly irregular GI: GI Palp: Yes Soft to palpation and No Tenderness to palpation present (GI) Neuro: General: patient oriented x3, moves all extremities and CN's II-XI intact bilaterally Speech: normal speech Extrem: General: no edema Course Vital Signs Vital signs: Vital Signs Temperature 37.6 C 03/18/20 04:42 Pulse Rate 156 H 03/18/20 04:42 Respiratory Rate 22 H 03/18/20 04:42 Blood Pressure 128/50 L 03/18/20 04:42 Pulse Oximetry 96 03/18/20 04:42 Temperature 37.6 C 03/18/20 04:42 Pulse Rate 125 H 03/18/20 06:00 Respiratory Rate 30 H 03/18/20 06:00 Blood Pressure 99/64 L 03/18/20 06:00 Pulse Oximetry 98 03/18/20 06:00 MDM - SOB/Dyspnea Lab Data Result diagrams: 03/18/20 05:05 03/18/20 05:05 Labs: Lab Results 03/18/20 03/18/20 03/18/20 Range/Units 05:04 05:04 05:04 WBC (4.5-10.0) K/mm3 RBC (4.6-6.20) M/mm3 Hgb (14.0-18.0) g/dL Hct (42.0-52.0) % MCV (80-100) fl MCH (26-34) pg MCHC (32-36) g/dl RDW (11.5-14.5) % Plt Count (150-375) k/mm3 MPV (7.4-10.4) fl Immature Gran % (Auto) (0-0.5) % Neut %
--- NOTE | 2020-03-18 05:00 | PC.NURSE ---
INFORMED PT NEED FOR URINATE. PT ATTEMPT X1. TATES UNABLE TO VOID AT THIS TIME. STATES WILL TRY AGAIN LATER
[2020-03-18] MEDS: SODIUM CHLORIDE 0.9% IV 500 ML 999 ML IV CONT (05:02)
[2020-03-18 05:10] LABS: Alveolar/Arterial O2 Gradient 113.1 mmHg; Base Excess ABG 5.6 mEq/l (+/-2.0); Fractional Inspired Oxygen 34 %; HCO3 ABG 31.3 mEq/l (22.0-26.0); Oxygen Content ABG 16.3 %vol (16.0-22.0); Oxygen Saturation ABG 94.3 % (95.0-100.0); Oxyhemoglobin 92.6 % THb (90.0-100.0); PCO2 ABG 50.1 mmHg (35.0-45.0); PO2 FiO2 Ratio Arterial Blood 2.09 %; Total Hemoglobin 12.5 g/dL (12.0-18.0); pH ABG 7.413 (7.350-7.450)
[2020-03-18 05:11] LABS: Device NASAL CANNULA; Liters per Minute 3.5 LPM; Modified Allen's Test Pass; Site Drawn LEFT RADIAL
[2020-03-18 05:15] LABS: Basophils Absolute Auto 0.1 K/mm3 (0.0-0.1); Basophils Percent Auto 0.4 % (0.2-1.2); Eosinophils Percent Auto 0.1 % (0-4.4); Hematocrit 38.7 % (42.0-52.0); Hemoglobin 12.1 g/dL (14.0-18.0); Immature Granulocyte Absolute 0.09 K/mm3 (0.00-0.031); Immature Granulocyte Percent A 0.5 % (0-0.5); Lymphocytes Absolute Auto 1.17 K/mm3 (0.9-3.2); Lymphocytes Percent Auto 6.9 % (18.3-44.2); Mean Corpuscular HGB Conc 31.3 g/dl (32-36); Mean Corpuscular Hemoglobin 31.8 pg (26-34); Mean Corpuscular Volume 101.6 fl (80-100); Mean Platelet Volume 9.8 fl (7.4-10.4); Monocytes Absolute Auto 0.9 K/mm3 (0.1-0.6); Monocytes Percent Auto 5.5 % (2.6-8.5); Neutrophils Absolute Auto 14.6 K/mm3 (1.3-6.7); Neutrophils Percent Auto 86.6 % (45.5-73.1); Platelet Count Result 321 k/mm3 (150-375); Red Blood Count 3.81 M/mm3 (4.6-6.20); Red Cell Distribution Width 14.1 % (11.5-14.5); White Blood Count 16.9 K/mm3 (4.5-10.0)
[2020-03-18 05:35] LABS: INR 0.9; Prothrombin Time 12.3 Seconds (11.1-14.7)
[2020-03-18 05:36] LABS: Lactic Acid Reflex 1.1 mmol/L (0.7-2.1); Partial Thromboplastin Time 24.1 SECONDS (22.3-36.8)
[2020-03-18 05:38] LABS: Alanine Aminotransferase 14 U/L (4-50); Albumin Level 3.8 g/dL (3.5-5.1); Alkaline Phosphatase 85 U/L (38-126); Aspartate Amino Transferase 20 U/L (17-59); Bilirubin,Total 0.5 mg/dL (0.2-1.3); Blood Urea Nitrogen 29 mg/dL (9-20); CRP 6.4 mg/dL (<1.0); Calcium 9.1 mg/dL (8.4-10.2); Carbon Dioxide 33 mmol/L (22-30); Chloride 97 mmol/L (98-107); Estimated Glomerular Filt Rate > 60; Glucose 100 mg/dL (75-110); Potassium 4.3 mmol/L (3.4-5.0); Sodium 134 mmol/L (137-145)
--- NOTE | 2020-03-18 06:00 | PC.NURSE ---
STATES UNABLE TO VOID AT THIS TIME
--- NOTE | 2020-03-18 06:02 | ECG_ITS ---
Measurements Intervals [place] Rate: 169 P: OR: 0 QRS: 62 QRSD: 88 T: -19 QT: 270 QTc: 454 Interpretive Statements MULTIFOCAL ATRIAL TACHYCARDIA VENTRICULAR PREMATURE COMPLEXES DELAYED PRECORDIAL R/S TRANSITION NONSPECIFIC ST & T-WAVE ABNORMALITY- ANTEROLAT/INF LEADS BASELINE ARTIFACT- I, III, AVR, AVL, AVF, V1-V6 ABNORMAL ECG Electronically Signed On 03-18-2020 7:27:36 CDT by Syed Woody D.O.
[2020-03-18] MEDS: SODIUM CHLORIDE 0.9% IV 500 ML IV CONT (08:45)
--- NOTE | 2020-03-18 09:02 | PM.IMHP ---
H&P: HPI History of Present Illness Chief complaint: Sepsis/pneumonia/acute on chronic respiratory fail Narrative: Aamir Cortez is a 75 year old male with hx of chronic respiratory failure from COPD, dlated CMP and paroxysmal AFib here for fever and SOB. This morning, patietn awoke with fever and feeling SOB. Patient has had a cough of/on past month that is occasional productive of green sputum. This is more of a chronic issue. No hemoptysis. No chills. No recent fevers. No n/v. No CP. No dyuria or hematuria. Some mild mid abdominal pain that comes and goes but chronic in nature. No diaphoresis. Lives at home with dtr and grandchildren but he is sequestered from them. No sick contacts. He has chronic back pain without change. No diarrhea. Because of his symptoms, EMS was called and patient brought to the ER for evaluation. In the ER, patient was tachycardic to 156 with EKG showing MAT. BP normal at 128/50. CXR was clear. No fevers on admission. He was give 1L IVF and started on Rocephin and Azithromycin. Dilitazem bolus given and started on drip. He moved to IMU. COVID test ordered. He developed HoTN and 500mL bolus given. Called dtr and left message. Per ER note: Awoke from sleep early this morning feeling weak and short of breath. Called EMS. Found to be hypoxic on baseline 2 liters O2 and had a fever of 102. He was turned up to 4 liters and O2 saturation improved. He denies pain, nausea, dysuria. Review of Systems Review of Systems: Narrative: Patient does state he chokes if he lays back when eating. He must sit up to swallow safely. He also states he gets occasional pain with swallowing usually after the 1st bite but then symptoms resolve. He is deaf in the left ear. No history of stroke or heart disease. He denies heart failure but he does mention he had cardiac ablation in [place] 3-4 years ago. He also states the pedal edema is chronic and at baseline today. He has never had a myocardial infarction. He does not have sleep apnea and does not wear CPAP at home. He denies any rash but does have extensive bruising mostly in his upper extremities. He walks with a walker. He denies that he has been falling. He uses albuterol and Atrovent nebulizer 4 times a day and Symbicort. He does not use Spiriva. All systems reviewed & are unremarkable except as noted in HPI and below PMFSH Past Medical History Medical History Abnormal gait due to muscle weakness Anxiety Atrial fib/flutter, transient BPH (benign prostatic hyperplasia) Chronic anemia Chronic pain Chronic pain disorder Chronic respiratory failure with hypoxia Compression fracture T5 and T11 s/p vertebroplasty; also with T6, T9, T12 and L1 Congestive heart failure Constipation due to opioid therapy COPD (chronic obstructive pulmonary disease) Dilated idiopathic cardiomyopathy AALIYAH (generalized anxiety disorder) Malnutrition On home O2 3L Surgical History Surgical History Previous back surgery S/P kyphoplasty Family History Family History Father Acute myocardial infarction Father Unknown family medical history Social History Social History (Updated 03/18/20 @ 10:05 by Sarmad Combs MD) Social History: . Lives at home with dtr and grandchildren. Quit smoking 2019 after smoking 1/2 ppd since age 10yo. Rare alcohol use and no drug use. Patient is a DNR. Patient nominates his daughter to be the individual would make medical decisions for if he is unable. Smoking status: Former smoker Tobacco type: cigarettes Second hand tobacco smoke exposure: No Smoking end date: 06/25/20 Additional smoking assessment comments: smoked for 64 years/ 1 pack a day Alcohol intake: former Drinks per week: 4 Substance use: former Substance use type: does not use Ge
[2020-03-18] MEDS: ALBUTEROL SULFATE (*SP) AEROSOL 1 PUFF 2 PUFF INHALATION (09:16)
--- NOTE | 2020-03-18 09:41 | ADMIMU ---
This patient, Aamir Cortez, was admitted to IMU status, and placed in Intensive Care Unit-1 at 0730. Patient/family oriented to hospital policies and general routines including ID bracelet, bed and alarms, visiting hours, pain management, procedures, bathroom and other care routines, personal items, smoking policy, room service/diet, and visiting hours. Valuables list has been completed. Information on how to activate the Rapid Response Team has been discussed. Patient/Family are encouraged to report perceived risks to care and to ask questions if they do not understand what they are told or what they should do.
[2020-03-18 13:10] LABS: SARS-CoV-2 RNA PCR Negative
[2020-03-18] MEDS: LEVALBUTEROL HFA (*SP) 15 GM INHALER 2 PUFF INHALATION ×2 (14:06→20:06)
--- NOTE | 2020-03-18 16:52 | PC.NURSE ---
This patient, Aamir Cortez, was transferred to [facility] via bed on 03/18/20 at 1633 with RN x2 at bedside. Personal belongings sent with patient. Report given to FERNANDA Saucedo. Appropriate documentation sent with patient.
--- NOTE | 2020-03-18 17:01 | PC.NURSE ---
This patient, Aamir Cortez, was received from ICU-01 on 03/18/20 at 1633. Received to room 207. Report received from Jovi MICHAEL. Personal belongings list checked and signed. Patient/family oriented to unit policies and routines
[2020-03-18] MEDS: TAMSULOSIN HCL 0.4 MG CAPSULE PO (17:16)
[2020-03-18] MEDS: GABAPENTIN 300 MG CAPSULE PO ×2 (17:17→21:48)
[2020-03-18] MEDS: busPIRone HCL 5 MG TABLET PO (17:17)
[2020-03-18] MEDS: LORATADINE 5 MG TABLET PO (17:18)
[2020-03-18] MEDS: DILTIAZEM HCL 30 MG TABLET PO (17:18)
[2020-03-18] MEDS: ACETAMINOPHEN 500 MG TABLET PO (21:48)
[2020-03-19] VITALS (18 sets, daily range): BP systolic 85–107; BP diastolic 41–54; PULSE 72–116; RESP 16–20; TEMP 36.4–37.1; O2SAT 95–100
[2020-03-19] MEDS: LEVALBUTEROL HFA (*SP) 15 GM INHALER 2 PUFF INHALATION ×4 (02:27→18:03)
[2020-03-19 05:30] LABS: Basophils Absolute Auto 0.1 K/mm3 (0.0-0.1); Basophils Percent Auto 0.5 % (0.2-1.2); Eosinophils Absolute Auto 0.1 K/mm3 (0-0.3); Eosinophils Percent Auto 0.4 % (0-4.4); Hematocrit 33.1 % (42.0-52.0); Hemoglobin 10.2 g/dL (14.0-18.0); Immature Granulocyte Absolute 0.08 K/mm3 (0.00-0.031); Immature Granulocyte Percent A 0.6 % (0-0.5); Lymphocytes Absolute Auto 1.65 K/mm3 (0.9-3.2); Lymphocytes Percent Auto 12.3 % (18.3-44.2); Mean Corpuscular HGB Conc 30.8 g/dl (32-36); Mean Corpuscular Hemoglobin 32.1 pg (26-34); Mean Corpuscular Volume 104.1 fl (80-100); Mean Platelet Volume 10.5 fl (7.4-10.4); Monocytes Absolute Auto 0.5 K/mm3 (0.1-0.6); Neutrophils Percent Auto 82.2 % (45.5-73.1); Platelet Count Result 234 k/mm3 (150-375); Red Blood Count 3.18 M/mm3 (4.6-6.20); Red Cell Distribution Width 14.2 % (11.5-14.5); White Blood Count 13.4 K/mm3 (4.5-10.0)
[2020-03-19] MEDS: DILTIAZEM HCL 30 MG TABLET PO ×4 (05:54→23:39)
[2020-03-19 06:10] LABS: Blood Urea Nitrogen 19 mg/dL (9-20); CRP 26.1 mg/dL (<1.0); Calcium 8.4 mg/dL (8.4-10.2); Carbon Dioxide 29 mmol/L (22-30); Chloride 101 mmol/L (98-107); Estimated CRCL calculation 60 ml/min; Estimated Glomerular Filt Rate > 60; Glucose 68 mg/dL (75-110); Potassium 4.2 mmol/L (3.4-5.0); Sodium 133 mmol/L (137-145)
[2020-03-19] MEDS: ACETAMINOPHEN 500 MG TABLET PO (06:35)
[2020-03-19] MEDS: busPIRone HCL 5 MG TABLET PO ×3 (09:13→17:44)
[2020-03-19] MEDS: TAMSULOSIN HCL 0.4 MG CAPSULE PO ×2 (09:13→17:44)
[2020-03-19] MEDS: PANTOPRAZOLE 40 MG TABLET PO (09:14)
[2020-03-19] MEDS: CHOLECALCIFEROL 1,000 UNIT TABLET 2000 UNITS PO (09:14)
[2020-03-19] MEDS: FLUTICASONE PROPIONATE 0.05% NA SPR 16 GM BTL (*BKC) 2 SPRAY NASAL (09:14)
[2020-03-19] MEDS: MONTELUKAST SODIUM 10 MG TABLET PO (09:14)
[2020-03-19] MEDS: GABAPENTIN 300 MG CAPSULE PO ×4 (09:15→20:18)
[2020-03-19] MEDS: FINASTERIDE 5 MG TABLET PO (09:15)
[2020-03-19] MEDS: MELOXICAM 7.5 MG TABLET 15 MG PO (09:15)
[2020-03-19] MEDS: ROFLUMILAST 500 MCG TABLET PO (11:06)
--- NOTE | 2020-03-19 11:06 | PCSTNOTE ---
Bedside swallow evaluation completed. Please see ST evaluation for results and recommendations.
[2020-03-19] MEDS: ALPRAZOLAM 0.5 MG TABLET PO ×2 (11:07→20:17)
--- NOTE | 2020-03-19 14:27 | PM.IMPN ---
Progress Note: A&P Assessment and Plan (1) Sepsis: Qualifiers: Sepsis acute organ dysfunction status: without acute organ dysfunction Sepsis type: sepsis due to unspecified organism Qualified Code(s): A41.9 - Sepsis, unspecified organism Code(s): A41.9 - Sepsis, unspecified organism Status: Acute Assessment and Plan: Patietn with fever at home and elevated WBC here with tachycardia. Septicemia now present with BCx (1of2) growing gram variable bacilli. Urine still not able to be collected yet but consider urinary source (patient without urinary symptoms). SARS-CoV-2 negative. No fevers here. WBC better. Will change to Zosyn and follow up on BCx results. Consider CT if having persistent fevers or other concerning findings. (2) Hypotension (arterial): Code(s): I95.9 - Hypotension, unspecified Status: Acute Assessment and Plan: BP dropped again today. IV fluids started. Could be related to septicemia and from diltiazem. (3) Multifocal atrial tachycardia: Code(s): I47.1 - Supraventricular tachycardia Status: Acute Assessment and Plan: Significant tachycardia felt related to the fevers/sepsis. Blood pressure low again. Will resume IV fluids. Parameters for diltiazem. Tsh normal Cardioloy consult. Mauy need digoxin. (4) Atrial fib/flutter, transient: Status: Acute Assessment and Plan: Patient has a history of atrial fibrillation. Telemetry so far showing MAT and not atrial fibrillation. He is not on rate controlling agents nor is he on anticoagulation. As above. (5) Chronic respiratory failure: Qualifiers: Respiratory failure complication: hypoxia and hypercapnia Qualified Code(s): J96.11 - Chronic respiratory failure with hypoxia; J96.12 - Chronic respiratory failure with hypercapnia Code(s): J96.10 - Chronic respiratory failure, unspecified whether with hypoxia or hypercapnia Status: Acute Assessment and Plan: Both hypoxic and hypercapnic respiratory failure. ABG noting a pCO2 of 50 with normal pH. Patient requires 3 L of O2 nasal cannula at home. Currently at baseline. Continue to monitor. Continue Xopenex. Check bedside swallow study. (6) Dilated idiopathic cardiomyopathy: Code(s): I42.0 - Dilated cardiomyopathy Status: Acute Assessment and Plan: Patient has history of dilated cardiomyopathy. No echo here. Lasix on hold. Echo ordered. (7) Chronic anemia: Code(s): D64.9 - Anemia, unspecified Status: Acute Assessment and Plan: Earlier this year, Hgb was in the 9 range. More recently hemoglobin was 11.7 and now 12.1 here. He may be hemoconcentrated since repeat down to 10.2. Patient most likely with anemia of chronic disease. Continue to monitor. (8) COPD (chronic obstructive pulmonary disease): Code(s): J44.9 - Chronic obstructive pulmonary disease, unspecified Status: Acute Assessment and Plan: Patietn with chronic lung disease treated with Symbicort and Nebs at home. Continue meds here. Not wheezing and stable on his 3L so will hold on steroids. (9) Chronic back pain: Code(s): M54.9 - Dorsalgia, unspecified; G89.29 - Other chronic pain Status: Acute Assessment and Plan: Patient has had multiple and recent compression fractures with recent vertebroplasty. Probably underlying osteoporosis related to steroids. Start PT/OT. (10) Hyponatremia: Code(s): E87.1 - Hypo-osmolality and hyponatremia Status: Acute Assessment and Plan: Na in the mid-low 130's but appears chronic. Related to Lasix probably. Continue to monitor. (11) DVT prophylaxis: Code(s): Z29.9 - Encounter for prophylactic measures, unspecified Status: Acute Assessment and Plan: SCDs Subjective Date/time seen: 03/19/20 14:27 Interval history: 75yo male with hx o
[2020-03-19] MEDS: LORATADINE 5 MG TABLET PO (17:44)
[2020-03-19] MEDS: SODIUM CHLORIDE 0.9% IV 1,000 ML 70 ML IV CONT (17:46)
[2020-03-20] VITALS (20 sets, daily range): BP systolic 98–145; BP diastolic 58–94; PULSE 59–137; RESP 12–20; TEMP 35.8–37.1; O2SAT 93–100; BMI 16.2
--- NOTE | 2020-03-20 | ECHO_ITS ---
Patient Info Name: Aamir Cortez Age: 75 years : 1945 Gender: Male Ht: 65 in Wt: 88 lbs BSA: 1.33 m2 HR: 68 bpm BP: 119 / 69 mmHg Heart Rhythm: Atrial Fibrillation Technical Quality: Good Exam Date: 03/20/2020 2:37 PM Exam Location: [facility] Patient Status: Inpatient Admit Date: 03/18/2020 Staff Ordering Physician: Sarmad Combs MD [employer] Operator: Nick Ribera, JENELLE, RT Attending Provider: Sarmad Combs MD Exam Type: CA echo doppler color flow Study Info Indications I50.9 - Heart failure, unspecified Complete two-dimensional, color flow and Doppler transthoracic echocardiogram is performed with contrast to opacify the left ventricle and to improve the deliniation of the left ventricle endocardial borders. Summary 1. Left ventricular systolic function is mild to moderately reduced, estimated at 40-45%. 2. There is mildly increased left ventricular wall thickness. 3. Global longitudinal strain is mildly elevated at -12 %. 4. Right atrial chamber dimension is mildly enlarged. 5. There is moderate to severe tricuspid valve regurgitation. 6. Severe pulmonary hypertension, estimated pulmonary arterial systolic pressure is 70 mmHg. 7. There is no aortic valve stenosis. Left Ventricle Left ventricular chamber dimension is normal. Left ventricular systolic function is mild to moderately reduced, estimated at 40-45%. There is mildly increased left ventricular wall thickness. The left ventricular diastolic function is indeterminate. Global longitudinal strain is mildly elevated at -12 %. Right Ventricle Right ventricular chamber dimension is normal. Right ventricular systolic function is normal. Left Atria Left atrial chamber dimension is normal. Right Atria Right atrial chamber dimension is mildly enlarged. Aortic Valve The aortic valve is not well visualized. There is no aortic valve stenosis. There is trace aortic valve regurgitation. Pulmonic Valve The pulmonic valve is not well visualized. There is mild pulmonic regurgitation. Mitral Valve The mitral valve has normal leaflets. There is mild mitral valve regurgitation. The mitral valve annulus is mildly calcified. Tricuspid Valve The tricuspid valve leaflets are normal. There is moderate to severe tricuspid valve regurgitation. Severe pulmonary hypertension, estimated pulmonary arterial systolic pressure is 70 mmHg. Pericardium/Pleural The pericardium appears normal. There is no pericardial effusion. Inferior Vena Cava Normal inferior vena cava with no collapse upon inspiration consistent with elevated right atrial pressure, 10 mmHg. Aorta The prox ascending aorta size is normal. Left Ventricular Outflow Tract Name Value Normal LVOT 2D LVOT Diameter 2.1 cm LVOT Doppler LVOT Peak Gradient 3 mmHg LVOT Mean Gradient 2 mmHg LVOT VTI 16 cm LVOT VTI/AV VTI Ratio 0.9 LVOT Stroke Volume 57 ml LVOT CO 3.8 l/min
[2020-03-20] MEDS: LEVALBUTEROL HFA (*SP) 15 GM INHALER 2 PUFF INHALATION ×4 (01:28→20:01)
[2020-03-20 04:46] LABS: Hemoglobin 9.3 g/dL (14.0-18.0); Mean Corpuscular Hemoglobin 31.4 pg (26-34); Mean Corpuscular Volume 104.7 fl (80-100); Platelet Count Result 206 k/mm3 (150-375); Red Blood Count 2.96 M/mm3 (4.6-6.20); White Blood Count 8.1 K/mm3 (4.5-10.0)
[2020-03-20 05:08] LABS: Albumin Level 2.9 g/dL (3.5-5.1); Blood Urea Nitrogen 15 mg/dL (9-20); Calcium 8.4 mg/dL (8.4-10.2); Carbon Dioxide 31 mmol/L (22-30); Chloride 101 mmol/L (98-107); Estimated CRCL calculation 55 ml/min; Estimated Glomerular Filt Rate > 60; Glucose 118 mg/dL (75-110); Magnesium 2.2 mg/dL (1.6-2.3); Phosphorus 3.1 mg/dL (2.5-4.5); Potassium 4.1 mmol/L (3.4-5.0); Sodium 134 mmol/L (137-145)
[2020-03-20] MEDS: DILTIAZEM HCL 30 MG TABLET PO ×4 (05:23→23:36)
[2020-03-20 05:41] LABS: CRP 19.3 mg/dL (<1.0)
--- NOTE | 2020-03-20 09:30 | PM.CNCAR ---
Assessment and Plan Additional Plan 75-year-old man with significant chronic lung disease who presents with shortness of breath and coughing some evidence of fever according to the admitting notes. At this time he has no recollection of why he was admitted to the hospital. He was placed on telemetry and he ECGs demonstrated MA T. this is an arrhythmia that is almost exclusively caused by respiratory insufficiency the setting of chronic COPD. There is also no real specific antiarrhythmic treatment that is generally helpful for indicated for this. The cornerstone of therapy usually involves treating the COPD. He provides a history of ablation of some sort having been done in [place] something like 5 or 6 years ago however no records of that are available. He is obviously a cachectic appearing chronically ill patient with advanced COPD and does have DNR orders on his chart presumably for those reasons as well. I suppose the diltiazem that has been started is reasonable but most of the time this arrhythmia does not respond to medical treatment significantly. At this point there are no specific cardiac recommendations to make. We will follow him with you while he is in the hospital. Ozzie Gerber MD [facility] History of Present Illness History of Present Illness Consult date/time: Date of Service: 03/20/20 09:30 Reason For Visit: Sepsis/pneumonia/acute on chronic respiratory fail Narrative: This is a 75-year-old patient of seeing at the request of the hospitalist because of multifocal atrial tachycardia. Patient is unknown to me prior to this encounter. He states that he has a history of some sort of cardiac arrhythmia in the past for which she had an ablation procedure. He does not have the details of any of that treatment or does he have any knowledge of what sort of an arrhythmia was ablated. He did state that about 4 5 years ago he had an attempt at an ablation in [place] at [facility] which was on successful. He then sought another opinion and had a successful ablation procedure done up somewhere in the [place] area. He does not recall having any other cardiac problems other than that. There are notes in the chart that indicate that he has a cardiomyopathy when I discussed this with the patient he does not have any recollection of being told anything like that he says he has never been in the hospital with any other cardiac her issues other than his ablation. He has a history of chronic lung disease due to a prior history of cigarette smoking for over 60 years. He however attributes his lung disease to occupational exposure to dust. According to the records that are available he is known to have home O2 dependent COPD. He was admitted to the hospital yesterday with shortness of breath coughing and fever. The patient at this moment can't remember why he was hospitalized. He denies any sense of chest pain pressure or heaviness he denies any orthopnea PND or accumulating edema. His electrocardiogram on arrival demonstrated multifocal atrial tachycardia. His breathing is getting better he now has sinus rhythm with frequent multifocal PACs. He is placed on IV diltiazem by the ER or hospitalist staff he is now been transition to oral diltiazem. His chest x-ray appears to show evidence of hyperinflation and chronic lung disease although it was read by the radiologist as unremarkable. In this setting I am seeing him in consultation. There are some notes on the chart from the PCP clinic that refer to the patient in chronic atrial fibrillation. Obviously this is erroneously as he has no evidence of atrial fibrillation during this hospital stay. Review of Systems Constitutional: Constitutional: Reports weakness Eyes: Eyes: Reports no additional eye complaints ENT: Reports system reviewed and no additional complaints, except as documented Cardiovascular: Cardiovascular: Reports as per HPI Respiratory: Respiratory: Reports cough and Re
[2020-03-20] MEDS: MONTELUKAST SODIUM 10 MG TABLET PO (10:03)
[2020-03-20] MEDS: TAMSULOSIN HCL 0.4 MG CAPSULE PO ×2 (10:04→17:47)
[2020-03-20] MEDS: busPIRone HCL 5 MG TABLET PO ×3 (10:04→17:47)
[2020-03-20] MEDS: GABAPENTIN 300 MG CAPSULE PO ×4 (10:05→20:35)
[2020-03-20] MEDS: PANTOPRAZOLE 40 MG TABLET PO (10:05)
[2020-03-20] MEDS: FINASTERIDE 5 MG TABLET PO (10:08)
[2020-03-20] MEDS: ROFLUMILAST 500 MCG TABLET PO (10:08)
[2020-03-20] MEDS: FLUTICASONE PROPIONATE 0.05% NA SPR 16 GM BTL (*BKC) 2 SPRAY NASAL (10:08)
[2020-03-20] MEDS: CHOLECALCIFEROL 1,000 UNIT TABLET 2000 UNITS PO (10:19)
[2020-03-20] MEDS: MELOXICAM 7.5 MG TABLET 15 MG PO (11:10)
--- NOTE | 2020-03-20 14:13 | PM.IMPN ---
Progress Note: A&P Assessment and Plan (1) Sepsis: Qualifiers: Sepsis acute organ dysfunction status: without acute organ dysfunction Sepsis type: sepsis due to unspecified organism Qualified Code(s): A41.9 - Sepsis, unspecified organism Code(s): A41.9 - Sepsis, unspecified organism Status: Acute Assessment and Plan: Patietn with fever at home and elevated WBC here with tachycardia. Septicemia now present with BCx (1of2) growing gram variable bacilli. Urine still not able to be collected yet but consider urinary source (patient without urinary symptoms) vs pulmonary (hidden PNA). SARS-CoV-2 negative. No fevers here. WBC normal now. Will continue Zosyn and follow up on BCx results. (2) Hypotension (arterial): Code(s): I95.9 - Hypotension, unspecified Status: Acute Assessment and Plan: BP dropped again yesterday. IV fluids started. Could be related to septicemia and/or from diltiazem. Blood pressure better so will stop IV fluids. Continue to monitor and IMU. (3) Multifocal atrial tachycardia: Code(s): I47.1 - Supraventricular tachycardia Status: Acute Assessment and Plan: Significant tachycardia felt related to the fevers/sepsis. Blood pressure low again yesterday so IV fluids resumed. Will stop IV fluids now that BP is better. Parameters for diltiazem. TSH normal. Cardiology following and appreciate their input. (4) Atrial fib/flutter, transient: Status: Acute Assessment and Plan: Patient has a history of atrial fibrillation. Telemetry so far showing MAT and not atrial fibrillation. He is not on rate controlling agents nor is he on anticoagulation. As above. (5) Chronic respiratory failure: Qualifiers: Respiratory failure complication: hypoxia and hypercapnia Qualified Code(s): J96.11 - Chronic respiratory failure with hypoxia; J96.12 - Chronic respiratory failure with hypercapnia Code(s): J96.10 - Chronic respiratory failure, unspecified whether with hypoxia or hypercapnia Status: Acute Assessment and Plan: Both hypoxic and hypercapnic respiratory failure. ABG noting a pCO2 of 50 with normal pH. Patient requires 3 L of O2 nasal cannula at home. Currently at baseline. Continue to monitor. Continue Xopenex. Bedside swallow evaluation showing patient can eat normally. (6) Dilated idiopathic cardiomyopathy: Code(s): I42.0 - Dilated cardiomyopathy Status: Acute Assessment and Plan: Patient has history of dilated cardiomyopathy. Lasix on hold. Echo showing EF of 40-45%. He has severe pulmonary hypertension with a PASP 70 and moderate to severe TR. Only on Lasix at home. Not on beta-stephie or VALENTINO-inhibitor/ARB. Blood pressure better today. Stop IV fluids. Consider starting ARB (Valentino may cause cough) if blood pressure remains stable. Could change diltiazem to beta-stephie although this may make his wheezing worse. (7) Chronic anemia: Code(s): D64.9 - Anemia, unspecified Status: Acute Assessment and Plan: Earlier this year, Hgb was in the 9 range. Hemoglobin 12.1 pinky dmission. He may be hemoconcentrated since repeat down to 9.3 today. Patient most likely with anemia of chronic disease. No evidence of acute blood loss. Continue to monitor. (8) COPD (chronic obstructive pulmonary disease): Code(s): J44.9 - Chronic obstructive pulmonary disease, unspecified Status: Acute Assessment and Plan: Patietn with chronic lung disease treated with Symbicort and Nebs at home. Continue meds here. Some wheezing noted today. Stable on his 3L. Will continue to hold steroids for now. Add Pulmozyme. (9) Chronic back pain: Code(s): M54.9 - Dorsalgia, unspecified; G89.29 - Other chronic pain Status: Acute Assessment and Plan: Patient has had multiple and recent compression fractures with recent vertebroplasty. Probab
[2020-03-20] MEDS: ALPRAZOLAM 0.5 MG TABLET PO (17:44)
[2020-03-20] MEDS: LORATADINE 5 MG TABLET PO (17:49)
[2020-03-20] MEDS: DORNASE ALFA INH SOLN 1 MG/ML 2.5 ML AMP 2.5 MG INHALATION (20:08)
[2020-03-20] MEDS: GUAIFENESIN/DEXTROMETHORPHAN 10 ML UDC PO (20:35)
[2020-03-21] VITALS (19 sets, daily range): BP systolic 121–143; BP diastolic 54–69; PULSE 90–118; RESP 12–24; TEMP 35.9–36.8; O2SAT 88–100
[2020-03-21] MEDS: LEVALBUTEROL HFA (*SP) 15 GM INHALER 2 PUFF INHALATION ×4 (01:17→19:16)
[2020-03-21 05:05] LABS: Basophils Percent Auto 0.3 % (0.2-1.2); Eosinophils Absolute Auto 0.1 K/mm3 (0-0.3); Eosinophils Percent Auto 0.7 % (0-4.4); Hematocrit 29.3 % (42.0-52.0); Immature Granulocyte Absolute 0.08 K/mm3 (0.00-0.031); Immature Granulocyte Percent A 0.9 % (0-0.5); Lymphocytes Absolute Auto 0.94 K/mm3 (0.9-3.2); Lymphocytes Percent Auto 10.4 % (18.3-44.2); Mean Corpuscular HGB Conc 30.7 g/dl (32-36); Mean Corpuscular Hemoglobin 31.3 pg (26-34); Mean Corpuscular Volume 101.7 fl (80-100); Mean Platelet Volume 9.8 fl (7.4-10.4); Monocytes Absolute Auto 0.7 K/mm3 (0.1-0.6); Monocytes Percent Auto 8.1 % (2.6-8.5); Neutrophils Absolute Auto 7.2 K/mm3 (1.3-6.7); Neutrophils Percent Auto 79.6 % (45.5-73.1); Platelet Count Result 249 k/mm3 (150-375); Red Blood Count 2.88 M/mm3 (4.6-6.20); Red Cell Distribution Width 13.6 % (11.5-14.5)
[2020-03-21 05:17] LABS: Blood Urea Nitrogen 11 mg/dL (9-20); Calcium 8.4 mg/dL (8.4-10.2); Carbon Dioxide 34 mmol/L (22-30); Chloride 97 mmol/L (98-107); Estimated CRCL calculation 58 ml/min; Estimated Glomerular Filt Rate > 60; Glucose 115 mg/dL (75-110); Potassium 3.9 mmol/L (3.4-5.0); Sodium 133 mmol/L (137-145)
[2020-03-21] MEDS: DILTIAZEM HCL 30 MG TABLET PO ×4 (05:32→23:35)
[2020-03-21] MEDS: DORNASE ALFA INH SOLN 1 MG/ML 2.5 ML AMP 2.5 MG INHALATION ×2 (09:02→19:13)
[2020-03-21] MEDS: GABAPENTIN 300 MG CAPSULE PO ×4 (09:12→20:38)
[2020-03-21] MEDS: TAMSULOSIN HCL 0.4 MG CAPSULE PO ×2 (09:12→17:08)
[2020-03-21] MEDS: MONTELUKAST SODIUM 10 MG TABLET PO (09:12)
[2020-03-21] MEDS: CHOLECALCIFEROL 1,000 UNIT TABLET 2000 UNITS PO (09:13)
[2020-03-21] MEDS: busPIRone HCL 5 MG TABLET PO ×3 (09:19→17:08)
[2020-03-21] MEDS: PANTOPRAZOLE 40 MG TABLET PO (09:20)
[2020-03-21] MEDS: MELOXICAM 7.5 MG TABLET 15 MG PO (09:20)
[2020-03-21] MEDS: ROFLUMILAST 500 MCG TABLET PO (09:20)
[2020-03-21] MEDS: FLUTICASONE PROPIONATE 0.05% NA SPR 16 GM BTL (*BKC) 2 SPRAY NASAL (09:21)
[2020-03-21] MEDS: FINASTERIDE 5 MG TABLET PO (09:21)
[2020-03-21] MEDS: ALPRAZOLAM 0.5 MG TABLET PO ×2 (09:24→17:07)
--- NOTE | 2020-03-21 10:25 | PM.PNCARD ---
Progress Note: A&P Additional Plan 75-year-old man with significant chronic lung disease present with dyspnea. He is getting treatment for acute on chronic COPD, possible respiratory tract infection/pneumonia. Patient has been found to be in multiple atrial tachycardia which is secondary to his underlying lung condition. Echocardiogram report which I personally evaluated showed EF 40-45%. At this time, recommend treatment of patient's underlying lung condition including supplemental oxygen, appropriate antibiotics, bronchodilators. Management as per primary team. Continue short-acting diltiazem for patient's multifocal atrial tachycardia. Continue to monitor on telemetry. Subjective Date/time seen: 03/21/20 10:25 Date of service-03/21/2020 Chief complaint: Shortness of breath Interval history-patient has dyspnea at rest, is on supplemental oxygen. Denies chest pain. On telemetry, continues to be in episodes of multifocal atrial tachycardia. Patient is on diltiazem. Exam Const: General: alert and awake Other: Cachectic, ill-appearing HENMT: Head: normocephalic and atraumatic Ears: hearing grossly normal bilaterally and external ears normal General nose exam: Normal external nose present and no epistaxis Face and sinus: normal facial exam and no ecchymosis Teeth and gingiva: edentulous Eyes: Conjunctivae: conjunctivae normal Sclera: sclerae normal Pupils: Equal, round and reactive pupils present EOM: EOMs intact bilaterally Neck: Neck: normal visual inspection, supple and no JVD Thyroid: thyroid normal Carotids: normal carotid upstroke Resp: Effort & Inspection: able to speak in complete sentences Auscultation: diminished lung sounds Cardio: Rate: tachycardic Heart sounds: S1 normal heart sound present and S2 normal heart sound present GI: Inspection: normal to inspection GI Palp: No abdominal tenderness Auscultation: normal bowel sounds Skin: Other: no rash on exposed areas, no cyanosis Neuro: Cranial nerves: Yes Equal, round and reactive pupils present and Yes Normal hearing present Other: alert, oriented, speech is coherent Extrem: Other: no edema, no cyanosis, no major deformities Psych: Appearance: grossly normal Mental Status: mental status grossly normal Objective Data Vital Signs Vital Signs: Vital Signs - 24 hr 03/20/20 11:54 03/20/20 12:00 03/20/20 14:00 Temperature 35.8 C L 35.9 C L Pulse Rate 59 L 113 H 125 H Respiratory Rate 16 12 Blood Pressure 122/58 L 145/94 H Pulse Oximetry 93 96 03/20/20 16:00 03/20/20 16:40 03/20/20 20:00 Temperature 36.2 C L 36.7 C Pulse Rate 118 H 110 H 137 H Respiratory Rate 18 20 Blood Pressure 126/80 115/60 Pulse Oximetry 94 96 03/20/20 20:03 03/20/20 20:10 03/20/20 20:12 Temperature Pulse Rate 121 H 127 H 127 H Respiratory Rate 20 20 20 Blood Pressure Pulse Oximetry 03/20/20 20:15 03/20/20 22:00 03/21/20 00:00 Temperature 36.8 C Pulse Rate 125 H 124 H 97 Respiratory Rate 20 18 Blood Pressure 124/56 L Pulse Oximetry 94 03/21/20 01:19 03/21/20 02:00 03/21/20 04:00 Temperature 36.6 C Pulse Rate 90 102 H 114 H Respiratory Rate 20 20 Blood Pressure 124/54 L Pulse Oximetry 99 03/21/20 06:00 03/21/20 08:00 03/21/20 09:03 Temperature 36.1 C L Pulse Rate 112 H 100 112 H Respiratory Rate 16 24 H Blood Pressure 121/55 L Pulse Oximetry 100 88 L 03/21/20 09:23 Temperature Pulse Rate 106 H Respiratory Rate 24 H Blood Pressure Pulse Oximetry Intake/Output Intake/Output: Intake & Output 03/18/20 03/19/20 03/20/20 03/21/20 23:59 23:59 23:59 23:59 Intake Total 1760 1390 1290 340 Output Total 500 400 400 Balance 1260 990 890 340 Meds/Results Medications: Active Medications Generic Name Dose Route Start Last Admin Trade Name Freq PRN Reason Stop Dose Admin Acetaminophen 500 mg 03/18/20 15:46 03/19/20 06:35 Tylenol Tablet PO 500 mg Q4H PRN Administra
--- NOTE | 2020-03-21 10:47 | PCDIET ---
Notified by RNValentine, that patient is refusing Ensure Enlive; agreeable to Ensure Clear. Recommend change from Ensure Enlive (350kcal, 20g protein) BID to Ensure Clear (240kcal, 8g protein) TID.
[2020-03-21] MEDS: GUAIFENESIN/DEXTROMETHORPHAN 10 ML UDC PO (12:47)
--- NOTE | 2020-03-21 16:17 | PM.IMPN ---
Progress Note: A&P Assessment and Plan (1) Sepsis: Qualifiers: Sepsis acute organ dysfunction status: without acute organ dysfunction Sepsis type: sepsis due to unspecified organism Qualified Code(s): A41.9 - Sepsis, unspecified organism Code(s): A41.9 - Sepsis, unspecified organism Status: Acute Assessment and Plan: Patient with fever at home and elevated WBC here with tachycardia. Septicemia now present with BCx (1of2) growing gram variable bacilli, clostridial type. Urine still not able to be collected yet but consider urinary source (patient without urinary symptoms) vs pulmonary (hidden PNA). SARS-CoV-2 negative. No fevers here. WBC normal now. Will continue Zosyn and follow up on BCx sensitivities. (2) Hypotension (arterial): Code(s): I95.9 - Hypotension, unspecified Status: Acute Assessment and Plan: . . Could be related to septicemia and/or from diltiazem. Blood pressure better so will stop IV fluids. Continue to monitor and IMU. (3) Multifocal atrial tachycardia: Code(s): I47.1 - Supraventricular tachycardia Status: Acute Assessment and Plan: Significant tachycardia felt related to the fevers/sepsis. . Will stop IV fluids now that BP is better. Parameters for diltiazem. TSH normal. Cardiology following and appreciate their input. (4) Atrial fib/flutter, transient: Status: Acute Assessment and Plan: Patient has a history of atrial fibrillation. Telemetry so far showing MAT and not atrial fibrillation. He is not on rate controlling agents nor is he on anticoagulation. As above. (5) Chronic respiratory failure: Qualifiers: Respiratory failure complication: hypoxia and hypercapnia Qualified Code(s): J96.11 - Chronic respiratory failure with hypoxia; J96.12 - Chronic respiratory failure with hypercapnia Code(s): J96.10 - Chronic respiratory failure, unspecified whether with hypoxia or hypercapnia Status: Acute Assessment and Plan: Both hypoxic and hypercapnic respiratory failure. ABG noting a pCO2 of 50 with normal pH. Patient requires 3 L of O2 nasal cannula at home. Currently at baseline. Continue to monitor. Continue Xopenex. Bedside swallow evaluation showing patient can eat normally. (6) Dilated idiopathic cardiomyopathy: Code(s): I42.0 - Dilated cardiomyopathy Status: Acute Assessment and Plan: Patient has history of dilated cardiomyopathy. Lasix on hold. Echo showing EF of 40-45%. He has severe pulmonary hypertension with a PASP 70 and moderate to severe TR. Only on Lasix at home. Not on beta-stephie or VALENTINO-inhibitor/ARB. Blood pressure better today. Stop IV fluids. Consider starting ARB (Valentino may cause cough) if blood pressure remains stable. Could change diltiazem to beta-stephie although this may make his wheezing worse. (7) Chronic anemia: Code(s): D64.9 - Anemia, unspecified Status: Acute Assessment and Plan: Earlier this year, Hgb was in the 9 range. Hemoglobin 12.1 pinky dmission. He may be hemoconcentrated since repeat down to 9.0 today. Patient most likely with anemia of chronic disease. No evidence of acute blood loss. Continue to monitor. (8) COPD (chronic obstructive pulmonary disease): Code(s): J44.9 - Chronic obstructive pulmonary disease, unspecified Status: Acute Assessment and Plan: Patietn with chronic lung disease treated with Symbicort and Nebs at home. Continue meds here. Some wheezing noted today. Stable on his 3L. Will continue to hold steroids for now. Pulmozyme also. (9) Chronic back pain: Code(s): M54.9 - Dorsalgia, unspecified; G89.29 - Other chronic pain Status: Acute Assessment and Plan: Patient has had multiple and recent compression fractures with recent vertebroplasty. Probably underlying osteoporosis related to steroids. Continue PT/OT. (10)
[2020-03-21] MEDS: LORATADINE 5 MG TABLET PO (17:09)
[2020-03-22] VITALS (18 sets, daily range): BP systolic 90–114; BP diastolic 48–61; PULSE 77–131; RESP 20–24; TEMP 35.8–37.4; O2SAT 93–100
[2020-03-22] MEDS: LEVALBUTEROL HFA (*SP) 15 GM INHALER 2 PUFF INHALATION ×3 (01:35→14:25)
[2020-03-22 05:14] LABS: Basophils Absolute Auto 0.1 K/mm3 (0.0-0.1); Basophils Percent Auto 0.5 % (0.2-1.2); Eosinophils Percent Auto 0.4 % (0-4.4); Hematocrit 29.5 % (42.0-52.0); Immature Granulocyte Percent A 1.1 % (0-0.5); Lymphocytes Percent Auto 10.7 % (18.3-44.2); Mean Corpuscular HGB Conc 30.5 g/dl (32-36); Mean Corpuscular Hemoglobin 31.3 pg (26-34); Mean Corpuscular Volume 102.4 fl (80-100); Mean Platelet Volume 10.1 fl (7.4-10.4); Monocytes Percent Auto 10.2 % (2.6-8.5); Neutrophils Absolute Auto 7.2 K/mm3 (1.3-6.7); Neutrophils Percent Auto 77.1 % (45.5-73.1); Platelet Count Result 263 k/mm3 (150-375); Red Blood Count 2.88 M/mm3 (4.6-6.20); Red Cell Distribution Width 13.6 % (11.5-14.5); White Blood Count 9.4 K/mm3 (4.5-10.0)
[2020-03-22 05:19] LABS: Blood Urea Nitrogen 12 mg/dL (9-20); Calcium 8.4 mg/dL (8.4-10.2); Carbon Dioxide 35 mmol/L (22-30); Chloride 97 mmol/L (98-107); Estimated CRCL calculation 69 ml/min; Estimated Glomerular Filt Rate > 60; Glucose 105 mg/dL (75-110); Potassium 3.7 mmol/L (3.4-5.0); Sodium 132 mmol/L (137-145)
[2020-03-22] MEDS: DILTIAZEM HCL 30 MG TABLET PO (05:25)
[2020-03-22] MEDS: DORNASE ALFA INH SOLN 1 MG/ML 2.5 ML AMP 2.5 MG INHALATION ×2 (08:28→20:23)
[2020-03-22] MEDS: FLUTICASONE PROPIONATE 0.05% NA SPR 16 GM BTL (*BKC) 2 SPRAY NASAL (10:05)
[2020-03-22] MEDS: TAMSULOSIN HCL 0.4 MG CAPSULE PO ×2 (10:06→16:46)
[2020-03-22] MEDS: GABAPENTIN 300 MG CAPSULE PO ×4 (10:07→20:39)
[2020-03-22] MEDS: ALPRAZOLAM 0.5 MG TABLET PO (10:07)
[2020-03-22] MEDS: PANTOPRAZOLE 40 MG TABLET PO (10:07)
[2020-03-22] MEDS: MONTELUKAST SODIUM 10 MG TABLET PO (10:07)
[2020-03-22] MEDS: MELOXICAM 7.5 MG TABLET 15 MG PO (10:07)
[2020-03-22] MEDS: busPIRone HCL 5 MG TABLET PO ×3 (10:08→16:46)
[2020-03-22] MEDS: FINASTERIDE 5 MG TABLET PO (10:08)
[2020-03-22] MEDS: ROFLUMILAST 500 MCG TABLET PO (10:08)
[2020-03-22] MEDS: CHOLECALCIFEROL 1,000 UNIT TABLET 2000 UNITS PO (10:09)
--- NOTE | 2020-03-22 11:15 | PM.PNCARD ---
Progress Note: A&P Assessment and Plan (1) Multifocal atrial tachycardia: Code(s): I47.1 - Supraventricular tachycardia Status: Acute Assessment and Plan: History of significant chronic lung disease presented with dyspnea. He is getting treatment for acute on chronic COPD, possible respiratory tract infection/pneumonia. Found to be in multiple atrial tachycardia which is secondary to his underlying lung condition. Recommend treatment of his underlying lung condition including supplemental oxygen, appropriate antibiotics, bronchodilators. Management as per primary team. Only short nonsustained episodes of atrial tach noted on telemetry. Transition to long-acting diltiazem at 120 mg daily. Will start this at noon today. May DC telemetry. Additional Plan OK to discharge from cardiac standpoint No further cardiac recommendations or follow-up needed Plan discussed with Dr. Urias 1125 03/22/2020 Time Spent With Patient Time: 5 minutes Time with patient: less than 15 minutes Subjective Date/time seen: 03/22/20 11:15 Interval history: Follow-up for: chronic respiratory failure from COPD, dilated CMP and paroxysmal AFib here for fever and SOB. Found to be in MAT on admission. Date of service: 03/22/2020 Subjective: Does not think he is any better than when he came in. Denied chest discomfort, shortness of breath, lightheadedness or palpitations. Multiple skin tears. Soreness on his left heel Review of Systems Constitutional: Constitutional: Reports weakness Eyes: Eyes: Denies blurry vision ENT: Reports Normal hearing present and Denies epistaxis Cardiovascular: Cardiovascular: Denies chest pain at rest, Denies chest pain with activity, Denies lightheadedness, Reports dyspnea (Related to COPD) and Denies orthopnea Respiratory: Respiratory: Reports cough and Reports dyspnea Gastrointestinal: Gastrointestinal: Denies dysphagia, Denies nausea and Denies vomiting Musculoskeletal: Musculoskeletal: Reports myalgias and Reports other (Soreness left heel) Integumentary/Breasts: Comments: Multiple areas of ecchymosis and skin tears Neurologic: Reports Normal hearing present and Reports weakness Psychiatric: Psychiatric: Denies anxiety Endocrine: Endocrine: Reports fatigue Hematologic/Lymphatic: Hematologic/Lymphatic: Reports easy bruising Allergic/Immunologic: Allergic/Immunologic: Denies lip swelling and Denies throat swelling Exam Const: General: cooperative, no acute distress and alert Nutritional Appearance: cachectic Other: Ill-appearing laying comfortably in bed. HENMT: Head: normocephalic and atraumatic Ears: hearing grossly normal bilaterally and external ears normal General nose exam: Normal external nose present and no epistaxis Face and sinus: normal facial exam and no ecchymosis Mouth: Yes dry mucous membranes Teeth and gingiva: edentulous Eyes: Conjunctivae: conjunctivae normal Sclera: sclerae normal Neck: Neck: normal visual inspection, supple and no JVD Carotids: normal carotid upstroke Resp: Effort & Inspection: able to speak in complete sentences Auscultation: diminished lung sounds bilateral and diffuse Cardio: Jugular venous distension: no JVD Rate: regular rate Rhythm: regular rhythm Heart sounds: S1 normal heart sound present, S2 normal heart sound present and no murmurs GI: Inspection: normal to inspection GI Palp: Yes Soft to palpation Auscultation: normal bowel sounds Skin: General skin exam: normal color, ecchymosis and other (Multiple skin tears) Other: no rash on exposed areas, no cyanosis Neuro: Cranial nerves: Yes Equal, round and reactive pupils present and Yes Normal hearing present Cognition (Neuro): abnormal cognition Speech: normal speech Psych: Appearance: grossly normal Mental Status: mental status grossly normal Objective Data Vital Signs Vital Signs: Vital Signs - 24 hr 03/21/20 12:00 03/21/20 14:00 03/21/20 16:00 Temperature
[2020-03-22] MEDS: ALBUTEROL SULFATE NEB 2.5 MG/0.5 ML INH 5 MG INHALATION (17:56)
--- NOTE | 2020-03-22 18:18 | PM.IMPN ---
Progress Note: A&P Assessment and Plan (1) Sepsis: Qualifiers: Sepsis acute organ dysfunction status: without acute organ dysfunction Sepsis type: sepsis due to unspecified organism Qualified Code(s): A41.9 - Sepsis, unspecified organism Code(s): A41.9 - Sepsis, unspecified organism Status: Acute Assessment and Plan: Patient with fever at home and elevated WBC here with tachycardia. Septicemia now present with BCx (1of2) growing gram variable bacilli, clostridial type beta lactase neg. (patient without urinary symptoms) vs pulmonary (hidden PNA). SARS-CoV-2 negative. No fevers here. WBC normal now. Will continue Zosyn . (2) Hypotension (arterial): Code(s): I95.9 - Hypotension, unspecified Status: Acute Assessment and Plan: . . Could be related to septicemia and/or from diltiazem. Blood pressure better so stopped IV fluids. (3) Multifocal atrial tachycardia: Code(s): I47.1 - Supraventricular tachycardia Status: Acute Assessment and Plan: Significant tachycardia felt related to the fevers/sepsis. . . Parameters for diltiazem and now long acting. TSH normal. Cardiology following and appreciate their input. (4) Atrial fib/flutter, transient: Status: Acute Assessment and Plan: Patient has a history of atrial fibrillation. Telemetry so far showing MAT and not atrial fibrillation. He is not on rate controlling agents nor is he on anticoagulation. As above. (5) Chronic respiratory failure: Qualifiers: Respiratory failure complication: hypoxia and hypercapnia Qualified Code(s): J96.11 - Chronic respiratory failure with hypoxia; J96.12 - Chronic respiratory failure with hypercapnia Code(s): J96.10 - Chronic respiratory failure, unspecified whether with hypoxia or hypercapnia Status: Acute Assessment and Plan: Both hypoxic and hypercapnic respiratory failure. ABG noting a pCO2 of 50 with normal pH. Patient requires 3 L of O2 nasal cannula at home. Currently at baseline. Continue to monitor. Continue Xopenex. Bedside swallow evaluation showing patient can eat normally. (6) Dilated idiopathic cardiomyopathy: Code(s): I42.0 - Dilated cardiomyopathy Status: Acute Assessment and Plan: Patient has history of dilated cardiomyopathy. Lasix on hold. Echo showing EF of 40-45%. He has severe pulmonary hypertension with a PASP 70 and moderate to severe TR. Only on Lasix at home. Not on beta-stephie or VALENTINO-inhibitor/ARB. Blood pressure better today. Stop IV fluids. Consider starting ARB (Valentino may cause cough) if blood pressure remains stable. Could change diltiazem to beta-stephie although this may make his wheezing worse. (7) Chronic anemia: Code(s): D64.9 - Anemia, unspecified Status: Acute Assessment and Plan: Earlier this year, Hgb was in the 9 range. Hemoglobin 12.1 pinky dmission. He may be hemoconcentrated since repeat down to 9.0 again today. Patient most likely with anemia of chronic disease. No evidence of acute blood loss. Continue to monitor. (8) COPD (chronic obstructive pulmonary disease): Code(s): J44.9 - Chronic obstructive pulmonary disease, unspecified Status: Acute Assessment and Plan: Patietn with chronic lung disease treated with Symbicort and Nebs at home. Continue meds here. Some wheezing noted today. Stable on his 3L. Will continue to hold steroids for now. Pulmozyme also. (9) Chronic back pain: Code(s): M54.9 - Dorsalgia, unspecified; G89.29 - Other chronic pain Status: Acute Assessment and Plan: Patient has had multiple and recent compression fractures with recent vertebroplasty. Probably underlying osteoporosis related to steroids. Continue PT/OT. (10) Hyponatremia: Code(s): E87.1 - Hypo-osmolality and hyponatremia Status: Acute Assessment and Plan: Marya
--- NOTE | 2020-03-22 18:19 | PC.NURSE ---
This patient, Aamir Cortez, was transferred to [facility] on 03/22/20 at 1815. Personal belongings sent with patient. Report given to Elisabeth MICHAEL. Appropriate documentation sent with patient.
[2020-03-22] MEDS: LORATADINE 5 MG TABLET PO (19:26)
[2020-03-22] MEDS: NEOMYCIN/POLYMYXIN/BACITRACIN OINTMENT PACKET 1 PACKET (19:38)
--- NOTE | 2020-03-22 19:39 | PC.NURSE ---
[facility] at 1810 . Personal belongings list checked and signed. Patient/family oriented to unit policies and routines
[2020-03-22] MEDS: GUAIFENESIN/DEXTROMETHORPHAN 10 ML UDC PO (20:39)
[2020-03-23] VITALS (15 sets, daily range): BP systolic 100–118; BP diastolic 54–68; PULSE 68–114; RESP 16–24; TEMP 36.8–38.2; O2SAT 88–99
[2020-03-23] MEDS: LEVALBUTEROL HFA (*SP) 15 GM INHALER 2 PUFF INHALATION ×4 (02:08→19:14)
[2020-03-23] MEDS: GUAIFENESIN/DEXTROMETHORPHAN 10 ML UDC PO (06:02)
[2020-03-23 06:39] LABS: Blood Urea Nitrogen 10 mg/dL (9-20); Calcium 8.3 mg/dL (8.4-10.2); Carbon Dioxide 34 mmol/L (22-30); Chloride 98 mmol/L (98-107); Estimated CRCL calculation 69 ml/min; Estimated Glomerular Filt Rate > 60; Glucose 117 mg/dL (75-110); Potassium 3.5 mmol/L (3.4-5.0); Sodium 133 mmol/L (137-145)
[2020-03-23] MEDS: POTASSIUM CHLORIDE 20 MEQ TABLET 40 MEQ PO (09:09)
[2020-03-23] MEDS: busPIRone HCL 5 MG TABLET PO ×3 (09:10→16:41)
[2020-03-23] MEDS: CHOLECALCIFEROL 1,000 UNIT TABLET 2000 UNITS PO (09:10)
[2020-03-23] MEDS: MONTELUKAST SODIUM 10 MG TABLET PO (09:11)
[2020-03-23] MEDS: GABAPENTIN 300 MG CAPSULE PO ×4 (09:11→21:53)
[2020-03-23] MEDS: MELOXICAM 7.5 MG TABLET 15 MG PO (09:11)
[2020-03-23] MEDS: FINASTERIDE 5 MG TABLET PO (09:11)
[2020-03-23] MEDS: FLUTICASONE PROPIONATE 0.05% NA SPR 16 GM BTL (*BKC) 2 SPRAY NASAL (09:11)
[2020-03-23] MEDS: ROFLUMILAST 500 MCG TABLET PO (09:12)
[2020-03-23] MEDS: TAMSULOSIN HCL 0.4 MG CAPSULE PO ×2 (09:12→16:41)
[2020-03-23] MEDS: PANTOPRAZOLE 40 MG TABLET PO (09:12)
[2020-03-23] MEDS: DORNASE ALFA INH SOLN 1 MG/ML 2.5 ML AMP 2.5 MG INHALATION ×2 (09:27→19:14)
[2020-03-23 12:36] LABS: SARS-CoV-2 RNA PCR Negative
[2020-03-23] MEDS: ALPRAZOLAM 0.5 MG TABLET PO (13:40)
--- NOTE | 2020-03-23 15:00 | PCOTNOTE ---
Attempted to see patient this pm, however upon entering patient was sleeping soundly. Did not disturb patient for this reason.
--- NOTE | 2020-03-23 15:42 | PM.IMPN ---
Progress Note: A&P Assessment and Plan (1) Sepsis: Qualifiers: Sepsis acute organ dysfunction status: without acute organ dysfunction Sepsis type: sepsis due to unspecified organism Qualified Code(s): A41.9 - Sepsis, unspecified organism Code(s): A41.9 - Sepsis, unspecified organism Status: Acute Assessment and Plan: Patient with fever at home and elevated WBC here with tachycardia. Septicemia now present with BCx (1of2) growing gram variable bacilli, clostridial type beta lactase neg. (patient without urinary symptoms) vs pulmonary (hidden PNA). SARS-CoV-2 negative. No fevers here. WBC normal now. Will continue Zosyn .D#5 (2) Hypotension (arterial): Code(s): I95.9 - Hypotension, unspecified Status: Acute Assessment and Plan: . . Could have been related to septicemia and/or from diltiazem. Blood pressure better so stopped IV fluids. (3) Multifocal atrial tachycardia: Code(s): I47.1 - Supraventricular tachycardia Status: Acute Assessment and Plan: Significant tachycardia felt related to the fevers/sepsis. . . Parameters for diltiazem and now long acting. TSH normal. Cardiology following and appreciate their input. (4) Atrial fib/flutter, transient: Status: Acute Assessment and Plan: Patient has a history of atrial fibrillation. Telemetry so far showing MAT and not atrial fibrillation. He is now on rate controlling agent but no anticoagulation with fall risk. As above. (5) Chronic respiratory failure: Qualifiers: Respiratory failure complication: hypoxia and hypercapnia Qualified Code(s): J96.11 - Chronic respiratory failure with hypoxia; J96.12 - Chronic respiratory failure with hypercapnia Code(s): J96.10 - Chronic respiratory failure, unspecified whether with hypoxia or hypercapnia Status: Acute Assessment and Plan: Both hypoxic and hypercapnic respiratory failure. ABG noting a pCO2 of 50 with normal pH. Patient requires 3 L of O2 nasal cannula at home. Currently at baseline. Continue to monitor. Continue Xopenex. Bedside swallow evaluation showing patient can eat normally. (6) Dilated idiopathic cardiomyopathy: Code(s): I42.0 - Dilated cardiomyopathy Status: Acute Assessment and Plan: Patient has history of dilated cardiomyopathy. Lasix on hold. Echo showing EF of 40-45%. He has severe pulmonary hypertension with a PASP 70 and moderate to severe TR. Only on Lasix at home. Not on beta-stephie or VALENTINO-inhibitor/ARB. Blood pressure better 03/22. Stopped IV fluids. Consider starting ARB (Valentino may cause cough) if blood pressure remains stable. Could change diltiazem to beta-stephie although this may make his wheezing worse. (7) Chronic anemia: Code(s): D64.9 - Anemia, unspecified Status: Acute Assessment and Plan: Earlier this year, Hgb was in the 9 range. Hemoglobin 12.1 pinky dmission. He may be hemoconcentrated since repeat down to 9.0 . Patient most likely with anemia of chronic disease. No evidence of acute blood loss. Continue to monitor. check Fe studies and b12 with elevated MCV (8) COPD (chronic obstructive pulmonary disease): Code(s): J44.9 - Chronic obstructive pulmonary disease, unspecified Status: Acute Assessment and Plan: Patietn with chronic lung disease treated with Symbicort and Nebs at home. Continue meds here. . Stable on his 3L. Will continue to hold steroids for now. Pulmozyme also. (9) Chronic back pain: Code(s): M54.9 - Dorsalgia, unspecified; G89.29 - Other chronic pain Status: Acute Assessment and Plan: Patient has had multiple and recent compression fractures with recent vertebroplasty. Probably underlying osteoporosis related to steroids. Continue PT/OT. (10) Hyponatremia: Code(s): E87.1 - Hypo-osmolality and hyponatremia Status: Acute
[2020-03-23] MEDS: LORATADINE 5 MG TABLET PO (17:50)
[2020-03-24] VITALS (12 sets, daily range): BP systolic 101–126; BP diastolic 57–65; PULSE 78–102; RESP 18–24; TEMP 36.8–37.6; O2SAT 93–99
[2020-03-24] MEDS: LEVALBUTEROL HFA (*SP) 15 GM INHALER 2 PUFF INHALATION ×5 (02:11→20:22)
[2020-03-24] MEDS: ALBUTEROL SULFATE NEB 2.5 MG/0.5 ML INH 5 MG INHALATION ×2 (06:10→17:59)
[2020-03-24 06:24] LABS: Basophils Percent Auto 0.3 % (0.2-1.2); Eosinophils Absolute Auto 0.1 K/mm3 (0-0.3); Eosinophils Percent Auto 0.7 % (0-4.4); Hematocrit 28.7 % (42.0-52.0); Hemoglobin 8.8 g/dL (14.0-18.0); Immature Granulocyte Absolute 0.13 K/mm3 (0.00-0.031); Immature Granulocyte Percent A 1.5 % (0-0.5); Lymphocytes Absolute Auto 0.99 K/mm3 (0.9-3.2); Lymphocytes Percent Auto 11.5 % (18.3-44.2); Mean Corpuscular HGB Conc 30.7 g/dl (32-36); Mean Corpuscular Hemoglobin 31.2 pg (26-34); Mean Corpuscular Volume 101.8 fl (80-100); Mean Platelet Volume 9.8 fl (7.4-10.4); Monocytes Absolute Auto 0.8 K/mm3 (0.1-0.6); Monocytes Percent Auto 9.4 % (2.6-8.5); Neutrophils Absolute Auto 6.6 K/mm3 (1.3-6.7); Neutrophils Percent Auto 76.6 % (45.5-73.1); Platelet Count Result 308 k/mm3 (150-375); Red Blood Count 2.82 M/mm3 (4.6-6.20); Red Cell Distribution Width 13.6 % (11.5-14.5); White Blood Count 8.6 K/mm3 (4.5-10.0)
[2020-03-24 06:29] LABS: Blood Urea Nitrogen 10 mg/dL (9-20); Calcium 8.5 mg/dL (8.4-10.2); Carbon Dioxide 34 mmol/L (22-30); Chloride 99 mmol/L (98-107); Estimated CRCL calculation 69 ml/min; Estimated Glomerular Filt Rate > 60; Glucose 102 mg/dL (75-110); Potassium 4.1 mmol/L (3.4-5.0); Sodium 134 mmol/L (137-145)
[2020-03-24 07:00] LABS: Iron 25 ug/dL (49-181)
[2020-03-24 07:10] LABS: Percent Iron Saturation 12 % (20-50)
[2020-03-24] MEDS: FLUTICASONE PROPIONATE 0.05% NA SPR 16 GM BTL (*BKC) 2 SPRAY NASAL (08:43)
[2020-03-24] MEDS: TAMSULOSIN HCL 0.4 MG CAPSULE PO ×2 (08:44→17:02)
[2020-03-24] MEDS: GABAPENTIN 300 MG CAPSULE PO ×4 (08:45→19:59)
[2020-03-24] MEDS: MELOXICAM 7.5 MG TABLET 15 MG PO (08:45)
[2020-03-24] MEDS: MONTELUKAST SODIUM 10 MG TABLET PO (08:45)
[2020-03-24] MEDS: FINASTERIDE 5 MG TABLET PO (08:45)
[2020-03-24] MEDS: ROFLUMILAST 500 MCG TABLET PO (08:45)
[2020-03-24] MEDS: busPIRone HCL 5 MG TABLET PO ×3 (08:45→17:02)
[2020-03-24] MEDS: CHOLECALCIFEROL 1,000 UNIT TABLET 2000 UNITS PO (08:46)
[2020-03-24] MEDS: PANTOPRAZOLE 40 MG TABLET PO (08:46)
[2020-03-24] MEDS: DORNASE ALFA INH SOLN 1 MG/ML 2.5 ML AMP 2.5 MG INHALATION ×2 (09:05→20:22)
[2020-03-24] MEDS: polyethylene glycoL 3350 17 GM POWD.PACK PO (11:04)
--- NOTE | 2020-03-24 11:13 | PCNFU ---
Nutrition Follow-Up Complete: Inadequate Oral Intake as related to COPD/Pneumonia as evidenced by weight loss of 9 ibs in 5 months. Goal: Adequate Intake of at least 75% of meals/supplements Limited progress towards goal. We will continue current goal. Pt current nutrition is Heart Healthy, Easy to Chew, Level 7. Nutrition recommendation:Agree Last recorded weight is 47.1 kg. Bowel Motility:+BM reported 03/23 Labs Reviewed:Na 134,Cr 0.5,Hct 28.7,Hgb 8.8 Meds Noted:Vit D, Protonix,Miralax Additional Notes: Patient has been eating 25-50% of most meals. Today had 1/4 sausage with 1/2 omelet. He continues to receive Ensure Enlive BID providing an additional 350 kcals and 20 gms protein. PO intake continues to be encouraged. Monitoring: RD will monitor every 5 days.
[2020-03-24] MEDS: predniSONE 40 MG, predniSONE 10 MG 50 MG PO (12:15)
--- NOTE | 2020-03-24 15:07 | PM.IMPN ---
Progress Note: A&P Assessment and Plan (1) Sepsis: Qualifiers: Sepsis acute organ dysfunction status: without acute organ dysfunction Sepsis type: sepsis due to unspecified organism Qualified Code(s): A41.9 - Sepsis, unspecified organism Code(s): A41.9 - Sepsis, unspecified organism Status: Acute Assessment and Plan: Patient with fever at home and elevated WBC here with tachycardia. Septicemia now present with BCx (1of2) growing gram variable bacilli, clostridial type beta lactase neg. (patient without urinary symptoms) vs pulmonary (hidden PNA). SARS-CoV-2 negative. No fevers here. WBC normal now. Will continue Zosyn .D#6 (2) Hypotension (arterial): Code(s): I95.9 - Hypotension, unspecified Status: Acute Assessment and Plan: . . Could have been related to septicemia and/or from diltiazem. Blood pressure better so stopped IV fluids. (3) Multifocal atrial tachycardia: Code(s): I47.1 - Supraventricular tachycardia Status: Acute Assessment and Plan: Significant tachycardia felt related to the fevers/sepsis. . . Parameters for diltiazem now long acting. TSH normal. Cardiology following and appreciate their input. (4) Atrial fib/flutter, transient: Status: Acute Assessment and Plan: Patient has a history of atrial fibrillation. Telemetry so far showing MAT and not atrial fibrillation. He is now on rate controlling agent but no anticoagulation with fall risk. As above. (5) Chronic respiratory failure: Qualifiers: Respiratory failure complication: hypoxia and hypercapnia Qualified Code(s): J96.11 - Chronic respiratory failure with hypoxia; J96.12 - Chronic respiratory failure with hypercapnia Code(s): J96.10 - Chronic respiratory failure, unspecified whether with hypoxia or hypercapnia Status: Acute Assessment and Plan: Both hypoxic and hypercapnic respiratory failure. ABG noting a pCO2 of 50 with normal pH. Patient requires 3 L of O2 nasal cannula at home. Currently at baseline. Continue to monitor. Continue Xopenex. Bedside swallow evaluation showing patient can eat normally. (6) Dilated idiopathic cardiomyopathy: Code(s): I42.0 - Dilated cardiomyopathy Status: Acute Assessment and Plan: Patient has history of dilated cardiomyopathy. Lasix on hold. Echo showing EF of 40-45%. He has severe pulmonary hypertension with a PASP 70 and moderate to severe TR. Only on Lasix at home. Not on beta-stephie or VALENTINO-inhibitor/ARB. Blood pressure better 03/22. Stopped IV fluids. Consider starting ARB (Valentino may cause cough) if blood pressure remains stable. Could change diltiazem to beta-stephie although this may make his wheezing worse. (7) Chronic anemia: Code(s): D64.9 - Anemia, unspecified Status: Acute Assessment and Plan: Earlier this year, Hgb was in the 9 range. Hemoglobin 12.1 pinky dmission. He may be hemoconcentrated since repeat down to 8.8 . Patient most likely with anemia of chronic disease. No evidence of acute blood loss. Fe studies today compatible with anemia of chronic disease with low Fe tibic and elevated ferritin elevated MCV but b12 388 (8) COPD (chronic obstructive pulmonary disease): Code(s): J44.9 - Chronic obstructive pulmonary disease, unspecified Status: Acute Assessment and Plan: Patietn with chronic lung disease treated with Symbicort and Nebs at home. Continue meds here. . Stable on his 3L. . Pulmozyme also. will start oral prednisone today (9) Chronic back pain: Code(s): M54.9 - Dorsalgia, unspecified; G89.29 - Other chronic pain Status: Acute Assessment and Plan: Patient has had multiple and recent compression fractures with recent vertebroplasty. Probably underlying osteoporosis related to steroids. Continue PT/OT. (10) Hyponatremia: Code(s): E87.1 - Hypo-os
[2020-03-24] MEDS: LORATADINE 5 MG TABLET PO (17:02)
[2020-03-24] MEDS: ALPRAZOLAM 0.5 MG TABLET PO (17:03)
[2020-03-25] VITALS (10 sets, daily range): BP systolic 100–107; BP diastolic 58–67; PULSE 80–98; RESP 18–20; TEMP 37–37.2; O2SAT 99–100
[2020-03-25] MEDS: ACETAMINOPHEN 500 MG TABLET PO (01:09)
[2020-03-25] MEDS: LEVALBUTEROL HFA (*SP) 15 GM INHALER 2 PUFF INHALATION ×3 (02:15→13:34)
[2020-03-25] MEDS: FLUTICASONE PROPIONATE 0.05% NA SPR 16 GM BTL (*BKC) 2 SPRAY NASAL (05:42)
[2020-03-25] MEDS: FINASTERIDE 5 MG TABLET PO (08:16)
[2020-03-25] MEDS: predniSONE 40 MG, predniSONE 10 MG 50 MG PO (08:16)
[2020-03-25] MEDS: MONTELUKAST SODIUM 10 MG TABLET PO (08:16)
[2020-03-25] MEDS: PANTOPRAZOLE 40 MG TABLET PO (08:16)
[2020-03-25] MEDS: DORNASE ALFA INH SOLN 1 MG/ML 2.5 ML AMP 2.5 MG INHALATION ×2 (08:16→20:03)
[2020-03-25] MEDS: GABAPENTIN 300 MG CAPSULE PO ×4 (08:17→20:59)
[2020-03-25] MEDS: ROFLUMILAST 500 MCG TABLET PO (08:17)
[2020-03-25] MEDS: TAMSULOSIN HCL 0.4 MG CAPSULE PO ×2 (08:17→17:32)
[2020-03-25] MEDS: CHOLECALCIFEROL 1,000 UNIT TABLET 2000 UNITS PO (08:18)
[2020-03-25] MEDS: busPIRone HCL 5 MG TABLET PO ×3 (08:18→17:32)
[2020-03-25] MEDS: MELOXICAM 7.5 MG TABLET 15 MG PO (08:18)
--- NOTE | 2020-03-25 14:31 | PM.IMPN ---
Progress Note: A&P Assessment and Plan (1) Sepsis: Qualifiers: Sepsis acute organ dysfunction status: without acute organ dysfunction Sepsis type: sepsis due to unspecified organism Qualified Code(s): A41.9 - Sepsis, unspecified organism Code(s): A41.9 - Sepsis, unspecified organism Status: Acute Assessment and Plan: Patient with fever at home and elevated WBC here with tachycardia. Septicemia now present with BCx (1of2) growing gram variable bacilli, clostridial type beta lactase neg. (patient without urinary symptoms) vs pulmonary (hidden PNA). SARS-CoV-2 negative. No fevers here. WBC normal now. Will continue Zosyn .D#7 for full 7 day course and anticipated d/c 03/26 (2) Hypotension (arterial): Code(s): I95.9 - Hypotension, unspecified Status: Acute Assessment and Plan: . . Could have been related to septicemia and/or from diltiazem. Blood pressure better so stopped IV fluids. (3) Multifocal atrial tachycardia: Code(s): I47.1 - Supraventricular tachycardia Status: Acute Assessment and Plan: Significant tachycardia felt related to the fevers/sepsis. diltiazem now long acting. TSH normal. . (4) Atrial fib/flutter, transient: Status: Acute Assessment and Plan: Patient has a history of atrial fibrillation. Telemetry so far showing MAT and not atrial fibrillation. He is now on rate controlling agent but no anticoagulation with fall risk. As above. (5) Chronic respiratory failure: Qualifiers: Respiratory failure complication: hypoxia and hypercapnia Qualified Code(s): J96.11 - Chronic respiratory failure with hypoxia; J96.12 - Chronic respiratory failure with hypercapnia Code(s): J96.10 - Chronic respiratory failure, unspecified whether with hypoxia or hypercapnia Status: Acute Assessment and Plan: Both hypoxic and hypercapnic respiratory failure. ABG noting a pCO2 of 50 with normal pH. Patient requires 3 L of O2 nasal cannula at home. Currently at baseline. Continue to monitor. Continue Xopenex. Bedside swallow evaluation showing patient can eat normally. will taper oral prednisone (6) Dilated idiopathic cardiomyopathy: Code(s): I42.0 - Dilated cardiomyopathy Status: Acute Assessment and Plan: Patient has history of dilated cardiomyopathy. Lasix on hold. Echo showing EF of 40-45%. He has severe pulmonary hypertension with a PASP 70 and moderate to severe TR. Only on Lasix at home. Not on beta-stephie or VALENTINO-inhibitor/ARB. Blood pressure better 03/22. Stopped IV fluids. Consider starting ARB (Valentino may cause cough) if blood pressure remains stable but usually running low . Could change diltiazem to beta-stephie although this may make his wheezing worse. (7) Chronic anemia: Code(s): D64.9 - Anemia, unspecified Status: Acute Assessment and Plan: Earlier this year, Hgb was in the 9 range. Hemoglobin 12.1 pinky dmission. He may be hemoconcentrated since repeat down to 8.8 . Patient most likely with anemia of chronic disease. No evidence of acute blood loss. Fe studies today compatible with anemia of chronic disease with low Fe tibic and elevated ferritin elevated MCV but b12 388 (8) COPD (chronic obstructive pulmonary disease): Code(s): J44.9 - Chronic obstructive pulmonary disease, unspecified Status: Acute Assessment and Plan: Patietn with chronic lung disease treated with Symbicort and Nebs at home. Continue meds here. . Stable on his 3L. . Pulmozyme also. oral prednisone started 03/24 (9) Chronic back pain: Code(s): M54.9 - Dorsalgia, unspecified; G89.29 - Other chronic pain Status: Acute Assessment and Plan: Patient has had multiple and recent compression fractures with recent vertebroplasty. Probably underlying osteoporosis related to steroids. Continue PT/OT. (10) Hyponatremia:
[2020-03-25] MEDS: LORATADINE 5 MG TABLET PO (17:32)
[2020-03-25] MEDS: ALPRAZOLAM 0.5 MG TABLET PO (17:41)
[2020-03-25] MEDS: GUAIFENESIN/DEXTROMETHORPHAN 10 ML UDC PO ×2 (18:32→21:57)
[2020-03-25] MEDS: ALBUTEROL SULFATE NEB 2.5 MG/0.5 ML INH 5 MG INHALATION (20:03)
[2020-03-26] VITALS (12 sets, daily range): BP systolic 91–121; BP diastolic 41–57; PULSE 81–108; RESP 18–20; TEMP 36.7–37.2; O2SAT 96–100
[2020-03-26] MEDS: ALBUTEROL SULFATE NEB 2.5 MG/0.5 ML INH 5 MG INHALATION ×5 (02:11→19:34)
[2020-03-26] MEDS: DORNASE ALFA INH SOLN 1 MG/ML 2.5 ML AMP 2.5 MG INHALATION ×2 (08:24→19:34)
[2020-03-26] MEDS: ALPRAZOLAM 0.5 MG TABLET PO ×3 (09:20→20:19)
[2020-03-26] MEDS: MELOXICAM 7.5 MG TABLET 15 MG PO (09:22)
[2020-03-26] MEDS: FLUTICASONE PROPIONATE 0.05% NA SPR 16 GM BTL (*BKC) 2 SPRAY NASAL (09:22)
[2020-03-26] MEDS: TAMSULOSIN HCL 0.4 MG CAPSULE PO ×2 (09:23→16:45)
[2020-03-26] MEDS: predniSONE 40 MG, predniSONE 10 MG 50 MG PO (09:23)
[2020-03-26] MEDS: busPIRone HCL 5 MG TABLET PO ×3 (09:23→16:44)
[2020-03-26] MEDS: FINASTERIDE 5 MG TABLET PO (09:24)
[2020-03-26] MEDS: PANTOPRAZOLE 40 MG TABLET PO (09:24)
[2020-03-26] MEDS: GABAPENTIN 300 MG CAPSULE PO ×4 (09:25→20:18)
[2020-03-26] MEDS: MONTELUKAST SODIUM 10 MG TABLET PO (09:25)
[2020-03-26] MEDS: ROFLUMILAST 500 MCG TABLET PO (09:25)
[2020-03-26] MEDS: CHOLECALCIFEROL 1,000 UNIT TABLET 2000 UNITS PO (12:05)
--- NOTE | 2020-03-26 15:26 | PM.IMPN ---
Progress Note: A&P Assessment and Plan (1) Sepsis: Qualifiers: Sepsis acute organ dysfunction status: without acute organ dysfunction Sepsis type: sepsis due to unspecified organism Qualified Code(s): A41.9 - Sepsis, unspecified organism Code(s): A41.9 - Sepsis, unspecified organism Status: Acute Assessment and Plan: Patient with fever at home and elevated WBC here with tachycardia. Septicemia now present with BCx (1of2) growing gram variable bacilli, clostridial type beta lactase neg. (patient without urinary symptoms) vs pulmonary (hidden PNA). SARS-CoV-2 negative. No fevers here. WBC normal now. Finish course of Zosyn .D#7 for full 7 day course and anticipated d/c today but having trouble arranging transportation. (2) Hypotension (arterial): Code(s): I95.9 - Hypotension, unspecified Status: Acute Assessment and Plan: . . Could have been related to septicemia and/or from diltiazem. Blood pressure still borderline so probable more diltiazem (3) Multifocal atrial tachycardia: Code(s): I47.1 - Supraventricular tachycardia Status: Acute Assessment and Plan: Significant tachycardia felt related to the fevers/sepsis. diltiazem now long acting. TSH normal. . (4) Atrial fib/flutter, transient: Status: Acute Assessment and Plan: Patient has a history of atrial fibrillation. Telemetry so far showing MAT and not atrial fibrillation. He is now on rate controlling agent but no anticoagulation with fall risk. As above. (5) Chronic respiratory failure: Qualifiers: Respiratory failure complication: hypoxia and hypercapnia Qualified Code(s): J96.11 - Chronic respiratory failure with hypoxia; J96.12 - Chronic respiratory failure with hypercapnia Code(s): J96.10 - Chronic respiratory failure, unspecified whether with hypoxia or hypercapnia Status: Acute Assessment and Plan: Both hypoxic and hypercapnic respiratory failure. ABG noting a pCO2 of 50 with normal pH. Patient requires 3 L of O2 nasal cannula at home. Currently at baseline. Continue to monitor. Continue Xopenex. Bedside swallow evaluation showing patient can eat normally. will taper oral prednisone (6) Dilated idiopathic cardiomyopathy: Code(s): I42.0 - Dilated cardiomyopathy Status: Acute Assessment and Plan: Patient has history of dilated cardiomyopathy. Lasix will be restarted daily and not bid. Echo showing EF of 40-45%. He has severe pulmonary hypertension with a PASP 70 and moderate to severe TR. Only on Lasix at home. Not on beta-stephie or VALENTINO-inhibitor/ARB. Blood pressure better 03/22. . Consider starting ARB (Valentino may cause cough) if blood pressure remains stable but usually running low . Could change diltiazem to beta-stephie although this may make his wheezing worse and card choose diltiazem (7) Chronic anemia: Code(s): D64.9 - Anemia, unspecified Status: Acute Assessment and Plan: Earlier this year, Hgb was in the 9 range. Hemoglobin 12.1 pinky dmission. He may be hemoconcentrated since repeat down to 8.8 . Patient most likely with anemia of chronic disease. No evidence of acute blood loss. Fe studies today compatible with anemia of chronic disease with low Fe tibic and elevated ferritin elevated MCV but b12 388 (8) COPD (chronic obstructive pulmonary disease): Code(s): J44.9 - Chronic obstructive pulmonary disease, unspecified Status: Acute Assessment and Plan: Patietn with chronic lung disease treated with Symbicort and Nebs at home. Continue meds here. . Stable on his 3L. . Pulmozyme also. oral prednisone started 03/24 (9) Chronic back pain: Code(s): M54.9 - Dorsalgia, unspecified; G89.29 - Other chronic pain Status: Acute Assessment and Plan: Patient has had multiple and recent compression fractures with recent vertebroplasty.
[2020-03-26] MEDS: LORATADINE 5 MG TABLET PO (17:54)
--- NOTE | 2020-03-26 18:02 | PM.DS ---
DS: Admitting Diagnosis Admitting Diagnosis Admitting Diagnosis: Sepsis, unspecified organism DS: Discharge Diagnosis Discharge Diagnosis (1) Sepsis: Qualifiers: Sepsis acute organ dysfunction status: without acute organ dysfunction Sepsis type: sepsis due to unspecified organism Qualified Code(s): A41.9 - Sepsis, unspecified organism Code(s): A41.9 - Sepsis, unspecified organism Status: Acute Assessment and Plan: Patient with fever at home and elevated WBC here with tachycardia. Septicemia now present with BCx (1of2) growing gram variable bacilli, clostridial type beta lactase neg. (patient without urinary symptoms) vs pulmonary (hidden PNA). SARS-CoV-2 negative. No fevers here. WBC normal now. Finished course of Zosyn .D#7 for full 7 day course and anticipated d/c today is transportation can be arranged with family (2) Hypotension (arterial): Code(s): I95.9 - Hypotension, unspecified Status: Acute Assessment and Plan: . . Could have been related to septicemia and/or from diltiazem. Blood pressure still borderline and discharge so probable more diltiazem (3) Multifocal atrial tachycardia: Code(s): I47.1 - Supraventricular tachycardia Status: Acute Assessment and Plan: Significant tachycardia felt related to the fevers/sepsis initially. diltiazem now long acting. TSH normal. . Rate controlled by diltiazem and seen by Cardiology while here (4) Chronic respiratory failure: Qualifiers: Respiratory failure complication: hypoxia and hypercapnia Qualified Code(s): J96.11 - Chronic respiratory failure with hypoxia; J96.12 - Chronic respiratory failure with hypercapnia Code(s): J96.10 - Chronic respiratory failure, unspecified whether with hypoxia or hypercapnia Status: Acute Assessment and Plan: Both hypoxic and hypercapnic respiratory failure. ABG noting a pCO2 of 50 with normal pH. Patient requires 3 L of O2 nasal cannula at home. Currently at baseline. Continue to monitor. Continue Xopenex. Bedside swallow evaluation showing patient can eat normally. will taper oral prednisone at discharge down to 10 b.i.d. is chronic dose (5) Dilated idiopathic cardiomyopathy: Code(s): I42.0 - Dilated cardiomyopathy Status: Acute Assessment and Plan: Patient has history of dilated cardiomyopathy. Lasix will be restarted daily and not bid. Echo showing EF of 40-45%. He has severe pulmonary hypertension with a PASP 70 and moderate to severe TR. Only on Lasix at home. Not on beta-stephie or VENESSA-inhibitor/ARB. . Could change diltiazem to beta-stephie although this may make his wheezing worse and card choose diltiazem (6) Chronic anemia: Code(s): D64.9 - Anemia, unspecified Status: Acute Assessment and Plan: Earlier this year, Hgb was in the 9 range. Hemoglobin 12.1 pinky dmission. He may be hemoconcentrated since repeat down to 8.8 . Patient most likely with anemia of chronic disease. No evidence of acute blood loss. Fe studies compatible with anemia of chronic disease with low Fe tibic and elevated ferritin elevated MCV but b12 388 (7) COPD (chronic obstructive pulmonary disease): Code(s): J44.9 - Chronic obstructive pulmonary disease, unspecified Status: Acute Assessment and Plan: Patietn with chronic lung disease treated with Symbicort and Nebs at home. Continue meds here. . Stable on his 3L. . Pulmozyme also. oral prednisone started 03/24 and will taper at home down to 10 mg b.i.d. (8) Chronic back pain: Code(s): M54.9 - Dorsalgia, unspecified; G89.29 - Other chronic pain Status: Acute Assessment and Plan: Patient has had multiple and recent compression fractures with recent vertebroplasty. Probably underlying osteoporosis related to steroids. Continue PT/OT. (9) Hyponatremia: Code(s): E87.1 - Hypo-osmolality and
== END 2020-03-26 21:15 | disposition home health service (06) | DRG 871 ==
LOC: ANHED 06:34 → ANHICU 07:23 → ANHIMU 03-20 12:43 → ANH3MEDSUR 03-22 23:11 → ANHICU 03-30 11:56 → ANHIMU 03-30 11:56
PROVIDERS: Internal Medicine; Admitting Provider Internal Medicine; Emergency Provider Emergency Medicine; PCP Family Medicine; Visit Provider Internal Medicine
DX: A41.9 Sepsis, unspecified organism (principal); J18.9 Pneumonia, unspecified organism; J96.22 Acute and chronic respiratory failure with hypercapnia; J96.21 Acute and chronic respiratory failure with hypoxia; E46 Unspecified protein-calorie malnutrition; Z68.1 Body mass index [BMI] 19.9 or less, adult; E87.1 Hypo-osmolality and hyponatremia; I42.0 Dilated cardiomyopathy; J44.0 Chronic obstructive pulmonary disease with (acute) lower respiratory infection; J44.1 Chronic obstructive pulmonary disease with (acute) exacerbation; Z87.891 Personal history of nicotine dependence; Z03.818 Encounter for observation for suspected exposure to other biological agents ruled out; S21.219A Laceration without foreign body of unspecified back wall of thorax without penetration into thoracic cavity, initial encounter; W19.XXXA Unspecified fall, initial encounter; D63.8 Anemia in other chronic diseases classified elsewhere
CPT/HCPCS: 36415; 36600; 71045; 80048; 80053; 80069; 82607; 82728; 82805; 83540; 83550; 83605; 83735; 84443; 85025; 85027; 85610; 85730; 86140; 87040; 87076; 87185; 87635; 92610; 93005; 93306; 94640; 96365; 96367; 96375; 96376; 97110; 97116; 97161; 97165; 97530; 97535; 99291; A9270; C9803; J0131; J0456; J0696; J2543; J7030; J7040; J7512; U0003

== ENCOUNTER 2020-04-11 09:12 | Outpatient (CLI) | payer MEDICARE, MEDICAID, SELFPAY ==
--- NOTE | ~2020-04-11 | XR_ITS ---
EXAMINATION: XR thoracic spine 3V DATE: 04/11/2020 09:30 INDICATION: Thoracic back pain. Fall. TECHNIQUE: 3 views of thoracic spine were obtained. COMPARISON: Thoracic spine radiographs 03/03/2020 FINDINGS: There is 6 degrees dextrocurvature of lower thoracic spine and 8 degrees levocurvature of u pper thoracic spine. There is kyphosis of thoracic spine. There are chronic burst fractures of T12 an d L1. There are chronic compression fractures of T5, T6, T9, and T11 with changes of vertebroplasty. Other vertebral body heights are normal. There is mildly decreased disc height at multiple levels in thoracic spine. There are endplate osteophytes at most levels. IMPRESSION: 1. Mild thoracic spondylosis. Reviewed, dictated and finalized at location A.
--- NOTE | ~2020-04-11 | XR_ITS ---
EXAMINATION: XR lumbar spine 2-3V DATE: 04/11/2020 09:31 INDICATION: Low back pain. TECHNIQUE: 3 views of lumbar spine were obtained. COMPARISON: Lumbar spine radiograph 03/03/2020, MRI 03/02/2020 FINDINGS: There is 5 degrees levocurvature of thoracolumbar spine. There is a burst fracture of super ior endplate of L4 with 2/5 loss of height, new from 03/03/2020. Again seen are chronic burst fracture s of T12 and L1. Again seen are chronic compression fractures of T9, T11, and L3 with changes of vert ebroplasty. Intervertebral disc heights are normal. There are endplate osteophytes at most levels. Th ere is multilevel facet joint osteoarthritis, severe lower lumbar spine. IMPRESSION: 1. Acute/subacute burst fracture of L4, new from 03/03/2020. 2. Mild lumbar spondylosis. Reviewed, dictated and finalized at location A.
== END 2020-04-11 09:13 | disposition home or self-care (01) ==
PROVIDERS: PCP Family Medicine; Visit Provider Nurse Practitioner Adult Health
DX: M54.6 Pain in thoracic spine (principal); M54.5 Low back pain; M47.814 Spondylosis without myelopathy or radiculopathy, thoracic region; M47.816 Spondylosis without myelopathy or radiculopathy, lumbar region; S32.041A Stable burst fracture of fourth lumbar vertebra, initial encounter for closed fracture
CPT/HCPCS: 72072; 72100

== ENCOUNTER 2020-04-17 08:05 | Outpatient (CLI) | payer MEDICARE, MEDICAID, SELFPAY ==
--- NOTE | ~2020-04-17 | MR_ITS ---
EXAMINATION: MR lumbar spine wo con DATE: 04/17/2020 09:34 INDICATION: L4 compression fracture. TECHNIQUE: Magnetic resonance imaging (MRI) of the lumbar spine was performed without intravenous con trast. Sequences included sagittal T2-weighted FSE, sagittal T2-weighted FS FSE, sagittal T1-weighted FSE, and axial T2-weighted FSE. COMPARISON: Lumbar spine MRI 03/02/2020, lumbar spine radiographs 04/11/2020 FINDINGS: There is 9 degrees levocurvature of lumbar spine. There is a chronic compression fracture o f T11 with changes of vertebroplasty. There is a burst fracture of T12 superior endplate with 2/5 los s of height, retropulsion of bone 3 mm into central spinal canal, and bone marrow edema. There is a b urst fracture of L1 superior endplate with 2/5 loss of height, retropulsion of bone 3 mm into central spinal canal, and bone marrow edema. There is a chronic compression fracture of L3 with changes of v ertebroplasty. There is a burst fracture of L4 with 2/5 loss of height, retropulsion of bone 2 mm int o central spinal canal, and bone marrow edema. Intervertebral disc heights are normal in lumbar spine . The distal spinal cord signal intensity is normal. The conus medullaris is at L1-L2. The following disc levels are specifically discussed: L1-L2: The disc is bulging and has an annular fissure. There is mild bilateral facet joint osteoarthr itis. There is moderate bilateral neural foraminal stenosis. There is mild central canal stenosis. L2-L3: The disc is bulging. There is mild bilateral facet joint osteoarthritis. There is moderate wayne ateral neural foraminal stenosis. There is mild central canal stenosis. L3-L4: The disc is bulging and has an annular fissure. There is mild bilateral facet joint osteoarthr itis. There is mild bilateral neural foraminal stenosis. There is mild central canal stenosis. L4-L5: The disc is bulging. There is moderate bilateral facet joint osteoarthritis. There is moderate bilateral neural foraminal stenosis. There is mild central canal stenosis. L5-S1: The disc is mildly bulging. There is severe bilateral facet joint osteoarthritis. There is mod erate right and mild left neural foraminal stenosis. There is mild central canal stenosis. IMPRESSION: 1. Subacute L4 burst fracture, new from 03/02/2020. 2. Subacute burst fractures of T12 and L1, stable from 03/02/2020. 3. Moderate lumbar spondylosis. Reviewed, dictated and finalized at location A.
== END 2020-04-17 08:06 | disposition home or self-care (01) ==
PROVIDERS: PCP Family Medicine; Visit Provider Nurse Practitioner Adult Health
DX: S32.040A Wedge compression fracture of fourth lumbar vertebra, initial encounter for closed fracture (principal); S32.041A Stable burst fracture of fourth lumbar vertebra, initial encounter for closed fracture; S32.011A Stable burst fracture of first lumbar vertebra, initial encounter for closed fracture; S22.081A Stable burst fracture of T11-T12 vertebra, initial encounter for closed fracture; M47.816 Spondylosis without myelopathy or radiculopathy, lumbar region
CPT/HCPCS: 72148

== ENCOUNTER 2020-04-28 08:44 | Observation (INO) | payer MEDICARE, MEDICAID, SELFPAY ==
--- NOTE | ~2020-04-28 | XR_ITS ---
EXAMINATION: XR chest 1V portable INDICATION: Cough TECHNIQUE: Portable AP chest at 1020 hours COMPARISON: 03/18/2020 FINDINGS: The lungs are free of acute opacities. There is no pleural effusion or pneumothorax. The ca rdiomediastinal silhouette is normal. Again noted are vertebroplasty changes at multiple levels in th e thoracic spine. IMPRESSION: 1. No acute cardiopulmonary abnormality. Reviewed, dictated and finalized at location A.
[2020-04-28 08:44] VITALS: BP 157/87; PULSE 9; RESP 26; TEMP 37.6; O2SAT 95
--- NOTE | 2020-04-28 09:09 | ECG_ITS ---
Measurements Intervals [place] Rate: 92 P: [place]: 0 QRS: 76 QRSD: 86 T: 150 QT: 349 QTc: 433 Interpretive Statements SINUS RHYTHM FREQUENT ATRIAL AND VENTRICULAR PREMATURE COMPLEXES NONSPECIFIC ST & T-WAVE ABNORMALITY- INF/LAT LEADS BASELINE ARTIFACT- I, II, III, AVR, AVL, AVF, V1-V6 ABNORMAL ECG Electronically Signed On 04-28-2020 10:01:51 CDT by Syed Woody D.O.
--- NOTE | 2020-04-28 09:24 | ED.WEAKNESS ---
HPI - Weakness General Chief complaint: Weakness Stated complaint: WEAKNESS Source: RN notes reviewed History of Present Illness HPI Narrative: Patient presents emergency department from home for weakness. Patient states he has been having increasing weakness over the past 3 days as well as increasing shortness of breath. He states he is normally on 2 to 3 L nasal cannula at all times secondary to COPD. He states he has been having subjective fevers at home with a cough. He denies any abdominal pain nausea vomiting or any other symptoms. Related Data Home Medications Medication Instructions Recorded Confirmed furosemide [Lasix] 20 mg PO BID 04/28/20 04/28/20 hydrocodone-acetaminophen 1 tablet PO Q8H PRN 04/28/20 04/28/20 prednisone 10 mg PO BID 04/28/20 04/28/20 tamsulosin [Flomax] 0.8 mg PO DAILY 04/28/20 04/28/20 Allergies Allergy/AdvReac Type Severity Reaction Status Date / Time aspirin Allergy Unknown Verified 03/18/20 04:47 Review of Systems Review of Systems: Narrative: Gen.: Reports subjective fevers Eyes: Denies eye pain or visual change ENT: Denies congestion Respiratory: Reports shortness of breath CV: Denies chest pain or palpitations GI: Denies abdominal pain nausea, emesis or diarrhea Musculoskeletal: Denies back pain or muscle pain Neuro: Denies numbness, tingling, weakness or focal weakness Skin: Denies rash Except as documented, all other systems reviewed and negative PMF Past Medical History Medical History Abnormal gait due to muscle weakness Anxiety Atrial fib/flutter, transient BPH (benign prostatic hyperplasia) Chronic anemia Chronic pain Chronic pain disorder Chronic respiratory failure with hypoxia Compression fracture T5 and T11 s/p vertebroplasty; also with T6, T9, T12 and L1 Congestive heart failure Constipation due to opioid therapy COPD (chronic obstructive pulmonary disease) Dilated idiopathic cardiomyopathy AALIYAH (generalized anxiety disorder) Malnutrition On home O2 3L Social History Social History Social History: . Lives at home with dtr and grandchildren. Quit smoking 2018 after smoking 1/2 ppd since age 10yo. Rare alcohol use and no drug use. Patient is a DNR. Patient nominates his daughter to be the individual would make medical decisions for if he is unable. Smoking packs per day: 1.5 Smoking cigarettes per day: 30.0 Years smoked: 63 Smoking pack-years: 94.50 Smoking status: Former smoker Tobacco type: cigarettes Second hand tobacco smoke exposure: No Smoking end date: 06/25/20 Additional smoking assessment comments: smoked for 64 years/ 1 pack a day Alcohol intake: never Drinks per week: 4 Substance use: never Substance use type: does not use Gender identity (if verbalized by the patient): Male Spiritual care concerns: No Agree to blood products: Yes Exam Narrative: Exam Narrative: APPEARANCE: No acute distress, nontoxic, resting in bed EYES: EOMI HEENT: Normocephalic, atraumatic, OMM RESPIRATORY: No respiratory distress Clear to auscultation bilaterally with no rhonchi wheezing or rales. CARDIOVASCULAR: Irregular irregular without murmurs rubs or gallops. ABDOMINAL: Soft, nontender, nondistended, no rebound or guarding MUSCULOSKELETAl: Moves all extremities. No clubbing, cyanosis or edema. NEURO: Awake and alert. Following commands, speech normal, no focal deficits SKIN:: Warm, dry. No rashes lesions or abrasions PSYCHIATRIC: Normal affect/mood, Course Course Emergency Course: Discussed with SONIA Flood for Dr Combs presentation work-up. Agrees with admission at this time. Agrees with plan for COVID testing at this time with no signs of acute infection will hold antibiotics Discussed with patient and family results of workup and diagnosis. Discussed need for admission. Patient and family understand
--- NOTE | 2020-04-28 09:30 | PC.NURSE ---
asked for urine sample, unable to at this time
[2020-04-28 09:35] VITALS: BP 140/80; PULSE 104; RESP 17; O2SAT 98
[2020-04-28 09:54] LABS: Basophils Percent Auto 0.2 % (0.2-1.2); Eosinophils Percent Auto 0.3 % (0-4.4); Hematocrit 35.5 % (42.0-52.0); Hemoglobin 11.3 g/dL (14.0-18.0); Immature Granulocyte Absolute 0.13 K/mm3 (0.00-0.031); Immature Granulocyte Percent A 0.8 % (0-0.5); Lymphocytes Absolute Auto 0.64 K/mm3 (0.9-3.2); Lymphocytes Percent Auto 4.1 % (18.3-44.2); Mean Corpuscular HGB Conc 31.8 g/dl (32-36); Mean Corpuscular Hemoglobin 31.6 pg (26-34); Mean Corpuscular Volume 99.2 fl (80-100); Mean Platelet Volume 9.6 fl (7.4-10.4); Monocytes Absolute Auto 0.6 K/mm3 (0.1-0.6); Neutrophils Absolute Auto 14.1 K/mm3 (1.3-6.7); Neutrophils Percent Auto 90.6 % (45.5-73.1); Platelet Count Result 221 k/mm3 (150-375); Red Blood Count 3.58 M/mm3 (4.6-6.20); Red Cell Distribution Width 14.2 % (11.5-14.5); White Blood Count 15.6 K/mm3 (4.5-10.0)
[2020-04-28] MEDS: SODIUM CHLORIDE 0.9% IV 1,000 ML 999 ML IV CONT (10:02)
[2020-04-28 10:04] LABS: INR 0.9; Prothrombin Time 12.3 Seconds (11.1-14.7)
[2020-04-28 10:05] LABS: Partial Thromboplastin Time 22.1 SECONDS (22.3-36.8)
[2020-04-28 10:06] LABS: Alanine Aminotransferase 17 U/L (4-50); Albumin Level 3.5 g/dL (3.5-5.1); Alkaline Phosphatase 89 U/L (38-126); Anion Gap 7.9 mmol/L (7-16); Aspartate Amino Transferase 20 U/L (17-59); Bilirubin,Total 0.6 mg/dL (0.2-1.3); Blood Urea Nitrogen 35 mg/dL (9-20); Calcium 8.4 mg/dL (8.4-10.2); Carbon Dioxide 36 mmol/L (22-30); Chloride 97 mmol/L (98-107); Estimated CRCL calculation 56 ml/min; Estimated Glomerular Filt Rate > 60; Glucose 121 mg/dL (75-110); Potassium 3.9 mmol/L (3.4-5.0); Sodium 137 mmol/L (137-145)
[2020-04-28 10:07] LABS: Alveolar/Arterial O2 Gradient 90.7 mmHg; Base Excess ABG 5.8 mEq/l (+/-2.0); Fractional Inspired Oxygen 36 %; HCO3 ABG 31.4 mEq/l (22.0-26.0); Oxygen Content ABG 16.2 %vol (16.0-22.0); Oxygen Saturation ABG 97.9 % (95.0-100.0); Oxyhemoglobin 96.8 % THb (90.0-100.0); PCO2 ABG 50.4 mmHg (35.0-45.0); PO2 ABG 107.5 mmHg (80.0-100.0); PO2 FiO2 Ratio Arterial Blood 2.99 %; Total Hemoglobin 11.8 g/dL (12.0-18.0); pH ABG 7.413 (7.350-7.450)
[2020-04-28 10:08] LABS: Device NASAL CANNULA; Site Drawn RIGHT BRACHIAL
[2020-04-28 10:18] LABS: Troponin I < 0.012 ng/mL (0.000-0.034)
[2020-04-28 10:19] VITALS: BP 134/87; PULSE 102; O2SAT 100
--- NOTE | 2020-04-28 10:30 | PC.NURSE ---
offered to cath pt for urine, refusing at this time
[2020-04-28 11:23] VITALS: BP 120/70; PULSE 73; RESP 16; O2SAT 98
--- NOTE | 2020-04-28 11:28 | PC.NURSE ---
1 hours ago pt refused a straight cath.
--- NOTE | 2020-04-28 11:34 | PC.NURSE ---
unable to get urine spec, priovider aware pt sleeping in room
[2020-04-28 13:33] VITALS: BP 152/76; PULSE 97; RESP 22; O2SAT 98
[2020-04-28 13:46] LABS: Add Urine Microscopic? YES; Appearance Urine Clear (Clear); Bilirubin Urine Negative (Negative); Blood Urine Negative (Negative); Color Urine Yellow (Yellow); Glucose Urine UA Negative (Negative); Ketones Urine 1+ mg/dL (Negative); Leukocyte Esterase Ur Negative LEU/UL (Negative); Mucus Urine Rare /lpf; Nitrate Urine Negative (Negative); Protein Urine Negative (Negative); RBC Urine 0-2 /hpf (0-2); Specific Grav Ur 1.024 (1.001-1.035); Urobilinogen Urine Negative mg/dL (<2.0); WBC Urine 0-3 /hpf
[2020-04-28 14:00] VITALS: BP 134/77; PULSE 59; RESP 22; TEMP 36.6; O2SAT 95
[2020-04-28 14:19] VITALS: BMI 14.4
--- NOTE | 2020-04-28 14:29 | ADMGEN ---
This patient, Aamir Cortez, was admitted to [facility] Surg Room 329-01 at 1400. Patient/family oriented to hospital policies and general routines including ID bracelet, bed and alarms, visiting hours, pain management, procedures, bathroom and other care routines, personal items, smoking policy, room service/diet, and visiting hours. Valuables list has been completed. Information on how to activate the Rapid Response Team has been discussed. Patient/Family are encouraged to report perceived risks to care and to ask questions if they do not understand what they are told or what they should do.
[2020-04-28 15:34] VITALS: BMI 14.4
[2020-04-28] MEDS: SODIUM CHLORIDE 0.9% IV 1,000 ML 80 ML IV CONT (16:46)
--- NOTE | 2020-04-28 21:00 | PC.NURSE ---
Pt left against medical advice.
--- NOTE | 2020-04-28 22:02 | PM.EVENT ---
Event Note Event Note Event Note: Nursing staff notified me around 8:30 p.m. that the patient wanted to leave AMA. Patient was notified of risks of leaving against medical advice and still chose to leave AMA.
[2020-04-29 00:47] LABS: SARS-CoV-2 RNA PCR Negative
== END 2020-04-28 21:00 | disposition left against medical advice (07) ==
LOC: ANHED 09:41 → ANH3MEDSUR 13:25
PROVIDERS: Admitting Provider Internal Medicine; Emergency Provider Emergency Medicine; PCP Family Medicine; Visit Provider Internal Medicine
DX: J44.1 Chronic obstructive pulmonary disease with (acute) exacerbation (principal); R50.9 Fever, unspecified; Z20.828 Contact with and (suspected) exposure to other viral communicable diseases; J96.11 Chronic respiratory failure with hypoxia; Z99.81 Dependence on supplemental oxygen; Z87.891 Personal history of nicotine dependence; Z66 Do not resuscitate
CPT/HCPCS: 36415; 36600; 51701; 71045; 80053; 81001; 82805; 83605; 84484; 85025; 85610; 85730; 87040; 87076; 87185; 87635; 93005; 96374; 99285; A9270; C9803; G0378; J0131; J7030; U0003

== ENCOUNTER 2020-05-01 12:15 | Outpatient (CLI) | payer MEDICARE, SELFPAY ==
--- NOTE | ~2020-05-01 | XR_ITS ---
XR chest 2V 05/01/2020 12:42 Indication: Respiratory failure. Hypoxia. Procedure: AP and lateral views of the chest Comparison: 04/28/2020 Findings: There is hyperinflation, compatible with emphysema. Chronic interstitial changes of the maria esther g bases. There is evidence for chronic granulomatous disease. Generalized osteopenia with multiple th oracic and lumbar compression fracture, some of which are treated with vertebroplasty. No acute focal pneumonia, edema or effusion. Impression: 1: No acute cardiopulmonary disease. Reviewed, dictated and finalized at location A. Impression: 1: No acute cardiopulmonary disease.
== END 2020-05-01 12:16 | disposition home or self-care (01) ==
LOC: ANHIMG 12:20
PROVIDERS: PCP Family Medicine; Visit Provider Family Medicine
DX: J96.11 Chronic respiratory failure with hypoxia (principal)
CPT/HCPCS: 71046

== ENCOUNTER 2020-05-05 13:10 | Inpatient (IN) | payer MEDICARE, MEDICAID, SELFPAY ==
[2020-05-05] VITALS (10 sets, daily range): BP systolic 111–139; BP diastolic 64–93; PULSE 76–112; RESP 18–29; TEMP 36.5–37.2; O2SAT 99–100; BMI 15.5
--- NOTE | 2020-05-05 13:16 | ECG_ITS ---
Measurements Intervals [place] Rate: 99 P: 76 MI: 101 QRS: 74 QRSD: 89 T: 48 QT: 355 QTc: 457 Interpretive Statements SINUS RHYTHM WITH SHORT MI INTERVAL VENTRICULAR PREMATURE COMPLEX POSSIBLE LEFT ATRIAL ENLARGEMENT NONSPECIFIC T-WAVE ABNORMALITY- INFERIOR LEADS BASELINE ARTIFACT- I, II, III, AVR, AVL, AVF, V1-V2, V4 BORDERLINE ECG Electronically Signed On 05-05-2020 16:26:25 CDT by Syed Woody D.O.
--- NOTE | 2020-05-05 13:25 | PC.NURSE ---
Patient's daughter reports that the patient has been using a wheelchair for mobility over the last three weeks. She tells me that he has not been eating for the last two weeks and his primary doctor has even discussed placing a feeding tube due to patient being malnourished. There is a reported history of an L4, and T11-T12 fracture.
--- NOTE | 2020-05-05 13:39 | PC.NURSE ---
Patient is refusing chest xray at this time.
[2020-05-05 13:42] LABS: Basophils Percent Auto 0.2 % (0.2-1.2); Hematocrit 37.1 % (42.0-52.0); Hemoglobin 11.7 g/dL (14.0-18.0); Immature Granulocyte Absolute 0.17 K/mm3 (0.00-0.031); Immature Granulocyte Percent A 1.3 % (0-0.5); Lymphocytes Absolute Auto 0.18 K/mm3 (0.9-3.2); Lymphocytes Percent Auto 1.4 % (18.3-44.2); Mean Corpuscular HGB Conc 31.5 g/dl (32-36); Mean Corpuscular Hemoglobin 31.2 pg (26-34); Mean Corpuscular Volume 98.9 fl (80-100); Mean Platelet Volume 10.4 fl (7.4-10.4); Monocytes Absolute Auto 0.5 K/mm3 (0.1-0.6); Neutrophils Absolute Auto 12.3 K/mm3 (1.3-6.7); Neutrophils Percent Auto 93.1 % (45.5-73.1); Platelet Count Result 344 k/mm3 (150-375); Red Blood Count 3.75 M/mm3 (4.6-6.20); Red Cell Distribution Width 14.2 % (11.5-14.5); White Blood Count 13.2 K/mm3 (4.5-10.0)
--- NOTE | 2020-05-05 13:42 | ED.GENADULT ---
HPI - General Adult General Chief complaint: Shortness of Breath/Dyspnea Stated complaint: SOB, fatigue Time Seen by Provider: 05/05/20 13:39 Source: patient History of Present Illness HPI narrative: 75 years old white male history of COPD on 3 L nasal cannula presents with difficulty breathing. Currently patient on prednisone. Patient denies any fever or chills. Patient denies any increase of the amount of the coughing.. Patient signed AMA last admission. According to his family physician that patient need to be admitted because he does not eat and probably need feeding tube placement. Related Data Home Medications Medication Instructions Recorded Confirmed furosemide [Lasix] 20 mg PO BID 04/28/20 05/01/20 hydrocodone-acetaminophen 1 tablet PO Q8H PRN 04/28/20 05/01/20 prednisone 10 mg PO BID 04/28/20 05/01/20 tamsulosin [Flomax] 0.8 mg PO DAILY 04/28/20 05/01/20 Allergies Allergy/AdvReac Type Severity Reaction Status Date / Time aspirin Allergy Unknown Verified 05/05/20 13:28 Review of Systems Review of Systems: Narrative: CONSTITUTIONAL: Denies fever, chills, or sweats. EYES: Denies visual changes, redness, or discharge. ENT: Denies rhinorrhea, congestion, sore throat, or otalgia. CARDIOVASCULAR: Denies chest pain, palpitations, or edema. RESPIRATORY: Denies cough or dyspnea. GASTROINTESTINAL: Denies abdominal pain, nausea, vomiting, or diarrhea. GENITOURINARY: Denies dysuria or hematuria. SKIN: Denies rash or itching. MUSCULOSKELETAL: Denies back pain, joint pain, or myalgia. NEUROLOGIC: Denies headache, numbness, or weakness. PSYCHIATRIC: Denies anxiety or depression. [facility] Past Medical History Medical History Abnormal gait due to muscle weakness Anxiety Atrial fib/flutter, transient BPH (benign prostatic hyperplasia) Chronic anemia Chronic pain Chronic pain disorder Chronic respiratory failure with hypoxia Compression fracture T5 and T11 s/p vertebroplasty; also with T6, T9, T12 and L1 Congestive heart failure Constipation due to opioid therapy COPD (chronic obstructive pulmonary disease) Dilated idiopathic cardiomyopathy AALIYAH (generalized anxiety disorder) Malnutrition On home O2 3L Surgical History Surgical History Previous back surgery S/P kyphoplasty Family History Family History Father Acute myocardial infarction Father Unknown family medical history Social History Social History Social History: . Lives at home with dtr and grandchildren. Quit smoking 2019 after smoking 1/2 ppd since age 10yo. Rare alcohol use and no drug use. Patient is a DNR. Patient nominates his daughter to be the individual would make medical decisions for if he is unable. Smoking packs per day: 1.5 Smoking cigarettes per day: 30.0 Years smoked: 63 Smoking pack-years: 94.50 Smoking status: Former smoker Tobacco type: cigarettes Second hand tobacco smoke exposure: No Smoking end date: 06/25/20 Additional smoking assessment comments: smoked for 64 years/ 1 pack a day Alcohol intake: never Drinks per week: 4 Substance use: never Substance use type: does not use Gender identity (if verbalized by the patient): Male Spiritual care concerns: No Agree to blood products: Yes Exam Narrative: Exam Narrative: General appearance: Well-developed, malnourished Skin: Normal color Head: Normocephalic, nontraumatic Eyes: Clear conjunctiva ENT: Oropharynx normal, ears normal, nose normal Neck: Supple, nontender Chest and respiratory: Airway patent, labored breathing, slight use of accessory muscle, diminution of air entry bilaterally Heart: Regular rate/rhythm Abdomen: Soft, nontender, no organomegaly, quiet bowel sounds Vascular: Normal peripheral pulses, normal capillary
[2020-05-05 13:54] LABS: Anion Gap 10.6 mmol/L (7-16); Blood Urea Nitrogen 36 mg/dL (9-20); Calcium 8.7 mg/dL (8.4-10.2); Carbon Dioxide 36 mmol/L (22-30); Chloride 95 mmol/L (98-107); Estimated CRCL calculation 55 ml/min; Estimated Glomerular Filt Rate > 60; Glucose 153 mg/dL (75-110); Potassium 3.6 mmol/L (3.4-5.0); Sodium 138 mmol/L (137-145)
[2020-05-05 14:08] LABS: Base Excess ABG 7.7 mEq/l (+/-2.0); Device NASAL CANNULA; Fractional Inspired Oxygen 32 %; HCO3 ABG 32.2 mEq/l (22.0-26.0); Modified Allen's Test Pass; Oxygen Content ABG 16.3 %vol (16.0-22.0); Oxygen Saturation ABG 97.7 % (95.0-100.0); Oxyhemoglobin 96.7 % THb (90.0-100.0); PCO2 ABG 44.8 mmHg (35.0-45.0); PO2 ABG 97.7 mmHg (80.0-100.0); PO2 FiO2 Ratio Arterial Blood 3.05 %; Site Drawn RIGHT RADIAL; Total Hemoglobin 11.9 g/dL (12.0-18.0); pH ABG 7.474 (7.350-7.450)
[2020-05-05 14:12] LABS: INR 0.9; Prothrombin Time 12.1 Seconds (11.1-14.7)
[2020-05-05 14:13] LABS: Partial Thromboplastin Time 20.7 SECONDS (22.3-36.8)
[2020-05-05 14:16] LABS: Albumin Level 3.7 g/dL (3.5-5.1); Alkaline Phosphatase 82 U/L (38-126); Anion Gap 10.6 mmol/L (7-16); Aspartate Amino Transferase 21 U/L (17-59); Bilirubin,Total 0.4 mg/dL (0.2-1.3); Blood Urea Nitrogen 35 mg/dL (9-20); CRP 2.2 mg/dL (<1.0); Calcium 8.8 mg/dL (8.4-10.2); Carbon Dioxide 35 mmol/L (22-30); Chloride 96 mmol/L (98-107); Estimated CRCL calculation 65 ml/min; Estimated Glomerular Filt Rate > 60; Glucose 152 mg/dL (75-110); Potassium 3.6 mmol/L (3.4-5.0); Sodium 138 mmol/L (137-145)
[2020-05-05 14:24] LABS: Alanine Aminotransferase 24 U/L (4-50)
[2020-05-05 14:39] LABS: Lactic Acid Reflex 2.8 mmol/L (0.7-2.1)
--- NOTE | 2020-05-05 16:03 | ADMGEN ---
This patient, Aamir Cortez, was admitted to Medical Room 254-01. Patient/family oriented to hospital policies and general routines including ID bracelet, bed and alarms, visiting hours, pain management, procedures, bathroom and other care routines, personal items, smoking policy, room service/diet, and visiting hours. Valuables list has been completed. Information on how to activate the Rapid Response Team has been discussed. Patient/Family are encouraged to report perceived risks to care and to ask questions if they do not understand what they are told or what they should do.
--- NOTE | 2020-05-05 16:33 | PC.NURSE ---
Patient admitted from ED. Per ED nurse, Pranay, he spoke with patients daughter who will be bringing in medication list. Medication list obtained from previous admission 04/28/2020. Patient reports no changes to this med list from last admit. Notified Celina Ospina that I was obtaining medications from last admission. Will update meds once received from daughter as necessary.
--- NOTE | 2020-05-05 16:41 | PC.NURSE ---
Patient very agitated upon arrival to floor. When asking admission questions, he would cut me off and start going on a rant about when he was last year saying we are negligent and didn't provide great care. Asked patient if he could recall his medications or knew what pharmacy to use and he told me I am not even going to tell you because last time I was here you guys didn't give me any of the medicine I asked for. I should of been given 50 fucking [place]. They gave me 5. Reassured patient that we were going to be trying our best to keep him comfortable while he was here. Will continue to educate patient.
--- NOTE | 2020-05-05 17:00 | PC.NURSE ---
CXR ordered in ED. Patient refused in ED. Spoke with him now on the floor and he is still refusing stating You guys are just trying to burn me up! Attempted to educate him but he is reluctant to answer or be receptive to our education. Notified Celina Ospina NP of patient refusing and she wants to leave order in place and she will be up to speak with him later.
[2020-05-05 17:19] LABS: Reflex Lactic Acid Yes or No Add Lactic
[2020-05-05 17:52] LABS: Lactic Acid 2.5 mmol/L (0.7-2.1)
[2020-05-05] MEDS: IPRATROPIUM BR 0.02% INH SOLN 0.5 MG/2.5 ML VIAL INHALATION (20:47)
[2020-05-05] MEDS: ALBUTEROL SULFATE NEB 2.5 MG/0.5 ML INH 5 MG INHALATION (20:48)
--- NOTE | 2020-05-05 22:22 | PM.IMHP ---
H&P: HPI History of Present Illness Date/Time: 05/05/20 22:22 Chief complaint: End stage COPD/failure to thrive Narrative: Aamir Cortez is a 75 year old male Who has chronic COPD and has a decreased oral appetite. The patient has chronic back pain he has chronic constipation from narcotic use. The patient was here earlier this month and it looks like he signed out AMA on the . He did follow-up with his primary care doctor on the . He has been on oral steroids. The patient is chronically on oxygen at 2-3 L per nasal cannula. The patient is a DNR. He only weighs 41 kg. He stated that he likes protein shakes but he is not able to eat very much due to his shortness of breath. The patient had also been admitted here in March for pneumonia. He also had SVT at that time. The ER physician called his primary care doctor who suggested that the patient be admitted due to failure to thrive. That the patient may need a tube feeding. I had a very long conversation with the patient asking him what he wanted to do about his weight and he stated that he would like to try supplements and talk to the dietitian. If that does not work then he will try a tube feeding but at this time he is not wanting tube feeding. The patient is complaining of back pain he stated that he supposed to have some type of nerve ablation to his lower back in that he has been seeing the pain substance abuse clinician. Patient has multiple bruises all over his arms from the prednisone. He had been on prednisone at home and has all these bruises. Patient stated that he has become weak and is having difficulty ambulating. Chest x-ray from 05/01/2030 was read as no acute cardiopulmonary disease. the patient would not allow and other chest x-rays he did not want the radiation. The patient was given a nebulizer treatment in the emergency room. Date of service 05/05/2020 Review of Systems Review of Systems: All systems reviewed & are unremarkable except as noted in HPI and below Constitutional: Constitutional: Reports as per HPI and Reports no additional constitutional complaints Eyes: Eyes: Reports as per HPI and Reports no additional eye complaints ENT: Reports system reviewed and no additional complaints, except as documented and Reports Normal hearing present Cardiovascular: Cardiovascular: Reports no additional cardiovascular complaints Respiratory: Respiratory: Reports no additional respiratory complaints and Reports no additional respiratory complaints Gastrointestinal: Gastrointestinal: Reports as per HPI and Reports no additional gastrointestinal complaints Musculoskeletal: Musculoskeletal: Reports no additional musculoskeletal complaints Integumentary/Breasts: Skin/Breast: Reports system reviewed and no additional complaints, except as docu and Reports as per HPI Neurologic: Reports system reviewed and no additional complaints, except as documented, Reports as per HPI and Reports Normal hearing present Psychiatric: Psychiatric: Reports no additional psychiatric complaints and Reports as per HPI Endocrine: Endocrine: Reports no additional endocrine complaints Hematologic/Lymphatic: Hematologic/Lymphatic: Reports no additional hematologic/lymphatic complaints Allergic/Immunologic: Allergic/Immunologic: Reports no additional allergic/immunologic complaints [facility] Past Medical History Medical History Abnormal gait due to muscle weakness Anxiety Atrial fib/flutter, transient BPH (benign prostatic hyperplasia) Chronic anemia Chronic pain Chronic pain disorder Chronic respiratory failure with hypoxia Compression fracture T5 and T11 s/p vertebroplasty; also with T6, T9, T12 and L1 Congestive heart failure Constipation due to opioid therapy COPD (chronic obstructive pulmonary disease) Dilated idiopathic cardiomyopathy AALIYAH (generalized anxiety disorder) Malnutrition On home O2 3L Surgical History Surgical
[2020-05-05] MEDS: MIRTAZAPINE 15 MG TABLET PO (22:46)
[2020-05-05] MEDS: busPIRone HCL 5 MG TABLET PO (22:46)
[2020-05-06] VITALS (14 sets, daily range): BP systolic 106–117; BP diastolic 55–67; PULSE 74–109; RESP 16–26; TEMP 36.5–36.8; O2SAT 94–100
[2020-05-06] MEDS: ALBUTEROL SULFATE NEB 2.5 MG/0.5 ML INH 5 MG INHALATION ×4 (01:18→20:19)
[2020-05-06] MEDS: IPRATROPIUM BR 0.02% INH SOLN 0.5 MG/2.5 ML VIAL INHALATION ×4 (01:18→20:19)
[2020-05-06] MEDS: ACETAMINOPHEN 500 MG TABLET PO ×2 (04:36→21:17)
[2020-05-06] MEDS: ALPRAZolam 0.5 MG TABLET PO ×2 (04:36→21:17)
[2020-05-06] MEDS: methylPREDNISolone SOD SUCC 125 MG VIAL 60 MG IV PUSH ×2 (04:37→12:52)
[2020-05-06 05:40] LABS: Basophils Percent Auto 0.1 % (0.2-1.2); Hematocrit 31.7 % (42.0-52.0); Immature Granulocyte Absolute 0.13 K/mm3 (0.00-0.031); Immature Granulocyte Percent A 1.4 % (0-0.5); Lymphocytes Absolute Auto 0.64 K/mm3 (0.9-3.2); Lymphocytes Percent Auto 6.8 % (18.3-44.2); Mean Corpuscular HGB Conc 31.5 g/dl (32-36); Mean Corpuscular Hemoglobin 31.2 pg (26-34); Mean Corpuscular Volume 98.8 fl (80-100); Mean Platelet Volume 10.4 fl (7.4-10.4); Monocytes Absolute Auto 0.7 K/mm3 (0.1-0.6); Monocytes Percent Auto 7.9 % (2.6-8.5); Neutrophils Absolute Auto 7.9 K/mm3 (1.3-6.7); Neutrophils Percent Auto 83.8 % (45.5-73.1); Platelet Count Result 302 k/mm3 (150-375); Red Blood Count 3.21 M/mm3 (4.6-6.20); Red Cell Distribution Width 14.2 % (11.5-14.5); White Blood Count 9.4 K/mm3 (4.5-10.0)
[2020-05-06 05:52] LABS: Lactic Acid 1.9 mmol/L (0.7-2.1)
[2020-05-06 05:56] LABS: Alanine Aminotransferase 17 U/L (4-50); Alkaline Phosphatase 63 U/L (38-126); Anion Gap 7.5 mmol/L (7-16); Aspartate Amino Transferase 13 U/L (17-59); Bilirubin,Total 0.3 mg/dL (0.2-1.3); Blood Urea Nitrogen 32 mg/dL (9-20); Calcium 8.5 mg/dL (8.4-10.2); Carbon Dioxide 36 mmol/L (22-30); Chloride 98 mmol/L (98-107); Estimated CRCL calculation 44 ml/min; Estimated Glomerular Filt Rate > 60; Glucose 131 mg/dL (75-110); Magnesium 2.3 mg/dL (1.6-2.3); Potassium 3.5 mmol/L (3.4-5.0); Sodium 138 mmol/L (137-145)
[2020-05-06] MEDS: ROFLUMILAST 500 MCG TABLET PO (08:46)
[2020-05-06] MEDS: MONTELUKAST SODIUM 10 MG TABLET PO (08:46)
[2020-05-06] MEDS: FLUTICASONE PROPIONATE 0.05% NA SPR 16 GM BTL (*BKC) 2 SPRAY NASAL (08:46)
[2020-05-06] MEDS: busPIRone HCL 5 MG TABLET PO ×3 (08:46→16:30)
[2020-05-06] MEDS: TAMSULOSIN HCL 0.4 MG CAPSULE 0.8 MG PO (08:46)
[2020-05-06] MEDS: FUROSEMIDE 20 MG TABLET PO (08:46)
[2020-05-06] MEDS: MEGESTROL ACETATE (*CHEMO) ORAL SUSP 40 MG/ML SYR 800 MG PO (08:49)
--- NOTE | 2020-05-06 13:45 | P.PNIM_ITS ---
Progress Note: A&P Assessment and Plan (1) End stage COPD: Code(s): J44.9 - Chronic obstructive pulmonary disease, unspecified Status: Acute Assessment and Plan: * Patient does not want any more imaging test * he wishes to continue his DNR status * he wishes to discuss hospice and palliative care with a commercial representative * he wishes to proceed with nerve ablation and possibly a course of physical therapy in the rehab center prior to signing up for hospice or palliative care. He chose to speak with [facility] [employer] 05/07. * started low-dose hydromorphone with p.r.n. for breakthrough dyspnea * did not use morphine due to his negative conception of the drug (2) Adult failure to thrive: Code(s): R62.7 - Adult failure to thrive Status: Acute Assessment and Plan: * main factor is severe COPD * chronic pain is contributing (3) Chronic back pain: Qualifiers: Back pain location: back pain in unspecified location Back pain laterality: midline Qualified Code(s): M54.9 - Dorsalgia, unspecified; G89.29 - Other chronic pain Code(s): M54.9 - Dorsalgia, unspecified; G89.29 - Other chronic pain Status: Acute Assessment and Plan: * due to degenerative disease and multiple compression fractures * add low-dose hydromorphone q.6 hours with p.r.n. for breakthrough dosing * add low-dose gabapentin and titrate upward as tolerated (4) Multifocal atrial tachycardia: Code(s): I47.1 - Supraventricular tachycardia Status: Acute Assessment and Plan: * currently asymptomatic (5) Chronic respiratory failure: Qualifiers: Respiratory failure complication: hypoxia and hypercapnia Qualified Code(s): J96.11 - Chronic respiratory failure with hypoxia; J96.12 - Chronic respiratory failure with hypercapnia Code(s): J96.10 - Chronic respiratory failure, unspecified whether with hypoxia or hypercapnia Status: Acute Assessment and Plan: * clinically stable * no further evaluation due to his advanced comorbidities (6) Chronic anemia: Code(s): D64.9 - Anemia, unspecified Status: Acute Assessment and Plan: * clinically stable (7) Malnutrition: Qualifiers: Malnutrition type: protein-calorie malnutrition Protein-calorie malnutrition severity: moderate Qualified Code(s): E44.0 - Moderate protein- calorie malnutrition Code(s): E46 - Unspecified protein-calorie malnutrition Status: Acute (8) AALIYAH (generalized anxiety disorder): Code(s): F41.1 - Generalized anxiety disorder Status: Acute Assessment and Plan: * increase mirtazapine to 30 mg at night * continue p.r.n. alprazolam * discontinue buspirone (9) Dilated idiopathic cardiomyopathy: Code(s): I42.0 - Dilated cardiomyopathy Status: Acute Assessment and Plan: * EF 40-45% * as he is malnourished with a partially compensated metabolic alkalosis will reduce his furosemide to 20 mg daily and add low-dose potassium supplement at 10 mEq daily (10) Osteoporosis: Qualifiers: Osteoporosis type: unspecified Presence of current pathological fracture: with current pathological fracture Encounter type: sequela Qualified Code(s): M80.00XS - Age-related osteoporosis with current pathological fracture, unspecified site, sequela Code(s): M81.0 - Age-related osteoporosis without current pathological fracture Status: Acute Assessment and Plan: * check vitamin-D level and start supplement (11) History of vertebral compression fractu
--- NOTE | 2020-05-06 13:45 | PM.IMPN ---
Progress Note: A&P Assessment and Plan (1) End stage COPD: Code(s): J44.9 - Chronic obstructive pulmonary disease, unspecified Status: Acute Assessment and Plan: Patient does not want any more imaging test he wishes to continue his DNR status he wishes to discuss hospice and palliative care with a appliance service representative he wishes to proceed with nerve ablation and possibly a course of physical therapy in the rehab center prior to signing up for hospice or palliative care. He chose to speak with [facility] 05/07. started low-dose hydromorphone with p.r.n. for breakthrough dyspnea did not use morphine due to his negative conception of the drug (2) Adult failure to thrive: Code(s): R62.7 - Adult failure to thrive Status: Acute Assessment and Plan: main factor is severe COPD chronic pain is contributing (3) Chronic back pain: Qualifiers: Back pain location: back pain in unspecified location Back pain laterality: midline Qualified Code(s): M54.9 - Dorsalgia, unspecified; G89.29 - Other chronic pain Code(s): M54.9 - Dorsalgia, unspecified; G89.29 - Other chronic pain Status: Acute Assessment and Plan: due to degenerative disease and multiple compression fractures add low-dose hydromorphone q.6 hours with p.r.n. for breakthrough dosing add low-dose gabapentin and titrate upward as tolerated (4) Multifocal atrial tachycardia: Code(s): I47.1 - Supraventricular tachycardia Status: Acute Assessment and Plan: currently asymptomatic (5) Chronic respiratory failure: Qualifiers: Respiratory failure complication: hypoxia and hypercapnia Qualified Code(s): J96.11 - Chronic respiratory failure with hypoxia; J96.12 - Chronic respiratory failure with hypercapnia Code(s): J96.10 - Chronic respiratory failure, unspecified whether with hypoxia or hypercapnia Status: Acute Assessment and Plan: clinically stable no further evaluation due to his advanced comorbidities (6) Chronic anemia: Code(s): D64.9 - Anemia, unspecified Status: Acute Assessment and Plan: clinically stable (7) Malnutrition: Qualifiers: Malnutrition type: protein-calorie malnutrition Protein-calorie malnutrition severity: moderate Qualified Code(s): E44.0 - Moderate protein-calorie malnutrition Code(s): E46 - Unspecified protein-calorie malnutrition Status: Acute (8) AALIYAH (generalized anxiety disorder): Code(s): F41.1 - Generalized anxiety disorder Status: Acute Assessment and Plan: increase mirtazapine to 30 mg at night continue p.r.n. alprazolam discontinue buspirone (9) Dilated idiopathic cardiomyopathy: Code(s): I42.0 - Dilated cardiomyopathy Status: Acute Assessment and Plan: EF 40-45% as he is malnourished with a partially compensated metabolic alkalosis will reduce his furosemide to 20 mg daily and add low-dose potassium supplement at 10 mEq daily (10) Osteoporosis: Qualifiers: Osteoporosis type: unspecified Presence of current pathological fracture: with current pathological fracture Encounter type: sequela Qualified Code(s): M80.00XS - Age-related osteoporosis with current pathological fracture, unspecified site, sequela Code(s): M81.0 - Age-related osteoporosis without current pathological fracture Status: Acute Assessment and Plan: check vitamin-D level and start supplement (11) History of vertebral compression fracture: Code(s): Z87.81 - Personal history of (healed) traumatic fracture Status: Acute Subjective Date/time seen: 05/06/20 13:45 Interval history: This delightful elderly gentleman was admitted May 05 for intractable back and neck pain due to multiple compression fractures and degenerative disc disease, severe COPD with dyspnea, decreased appetite and weight loss, increasing
[2020-05-06] MEDS: GABAPENTIN 100 MG CAPSULE PO (21:14)
[2020-05-06] MEDS: MIRTAZAPINE 15 MG TABLET 30 MG PO (21:14)
[2020-05-07] VITALS (13 sets, daily range): BP systolic 99–125; BP diastolic 56–87; PULSE 81–120; RESP 16–24; TEMP 36.7–36.9; O2SAT 91–98
[2020-05-07] MEDS: IPRATROPIUM BR 0.02% INH SOLN 0.5 MG/2.5 ML VIAL INHALATION ×4 (02:06→19:18)
[2020-05-07] MEDS: ALBUTEROL SULFATE NEB 2.5 MG/0.5 ML INH 5 MG INHALATION ×4 (02:06→19:18)
[2020-05-07 05:21] LABS: Anion Gap 4.7 mmol/L (7-16); Blood Urea Nitrogen 35 mg/dL (9-20); Calcium 8.4 mg/dL (8.4-10.2); Carbon Dioxide 36 mmol/L (22-30); Chloride 101 mmol/L (98-107); Estimated CRCL calculation 60 ml/min; Estimated Glomerular Filt Rate > 60; Glucose 166 mg/dL (75-110); Magnesium 2.2 mg/dL (1.6-2.3); Potassium 3.7 mmol/L (3.4-5.0); Sodium 138 mmol/L (137-145)
[2020-05-07 06:30] LABS: Thyroid Stimulating Hormone Reflex 0.419 uIU/mL (0.465-4.68)
[2020-05-07] MEDS: CHOLECALCIFEROL 1,000 UNIT TABLET 2000 UNITS PO (07:47)
[2020-05-07] MEDS: POTASSIUM CHLORIDE 10 MEQ TABLET.ER PO (07:47)
[2020-05-07] MEDS: TAMSULOSIN HCL 0.4 MG CAPSULE 0.8 MG PO (07:47)
[2020-05-07] MEDS: FUROSEMIDE 20 MG TABLET PO (07:47)
[2020-05-07] MEDS: MONTELUKAST SODIUM 10 MG TABLET PO (07:48)
[2020-05-07] MEDS: ROFLUMILAST 500 MCG TABLET PO (07:48)
[2020-05-07] MEDS: FLUTICASONE PROPIONATE 0.05% NA SPR 16 GM BTL (*BKC) 2 SPRAY NASAL (07:52)
[2020-05-07] MEDS: GABAPENTIN 100 MG CAPSULE PO ×3 (08:03→21:31)
[2020-05-07] MEDS: ALPRAZolam 0.5 MG TABLET PO ×2 (11:16→20:28)
--- NOTE | 2020-05-07 12:15 | P.PNIM_ITS ---
Progress Note: A&P Assessment and Plan (1) End stage COPD: Code(s): J44.9 - Chronic obstructive pulmonary disease, unspecified Status: Acute Assessment and Plan: He was referred to pulmonology at his last office visit 05/01. Yesterday, he expressed interest with hospitalist regarding discussion of hospice and palliative care, but he refused today. He is maintaining adequate oxygenation on his typical 3L. * Continue bronchodilators * Continue supplemental O2 with goal saturation 90% or above. * Will begin PO prednisone taper. IV solumedrol discontinued on 05/06. (2) Adult failure to thrive: Code(s): R62.7 - Adult failure to thrive Status: Acute Assessment and Plan: Patient is not eating. Main driving factor is end stage COPD and chronic back pain. * Continue regular diet and dietary supplements. * He had been referred to GI by PCP for possible feeding tube placement but had not made a decision on how he wishes to proceed * He would like to be a DNR. (3) Chronic back pain: Qualifiers: Back pain location: back pain in unspecified location Back pain laterality: midline Qualified Code(s): M54.9 - Dorsalgia, unspecified; G89.29 - Other chronic pain Code(s): M54.9 - Dorsalgia, unspecified; G89.29 - Other chronic pain Status: Acute Assessment and Plan: Due to degenerative disease and multiple compression fractures * Continue low-dose hydromorphone q4h prn * Continue low-dose gabapentin and titrate upward as tolerated * Follow up with pain management regarding nerve block * Continue PT and OT. (4) Multifocal atrial tachycardia: Code(s): I47.1 - Supraventricular tachycardia Status: Acute Assessment and Plan: Currently asymptomatic. * Continue to monitor (5) Chronic respiratory failure: Qualifiers: Respiratory failure complication: hypoxia and hypercapnia Qualified Code(s): J96.11 - Chronic respiratory failure with hypoxia; J96.12 - Chronic respiratory failure with hypercapnia Code(s): J96.10 - Chronic respiratory failure, unspecified whether with hypoxia or hypercapnia Status: Acute Assessment and Plan: Related to end stage COPD. Clinically stable * no further evaluation due to his advanced comorbidities (6) Chronic anemia: Code(s): D64.9 - Anemia, unspecified Status: Acute Assessment and Plan: Chronic and stable. * Continue to monitor H&H, transfuse as needed. (7) Malnutrition: Qualifiers: Malnutrition type: protein-calorie malnutrition Protein-calorie malnutrition severity: moderate Qualified Code(s): E44.0 - Moderate protein- calorie malnutrition Code(s): E46 - Unspecified protein-calorie malnutrition Status: Acute Assessment and Plan: Poor appetite/refusal to eat. * Continue dietary supplements as noted above. * Continue mirtazapine at increased dose. (8) AALIYAH (generalized anxiety disorder): Code(s): F41.1 - Generalized anxiety disorder Status: Acute Assessment and Plan: Stable at this time. * continue mirtazapine at increased dose 30 mg at night * continue p.r.n. alprazolam * buspirone discontinued on 05/06. (9) Dilated idiopathic cardiomyopathy: Code(s): I42.0 - Dilated cardiomyopathy Status: Acute Assessment and Plan: EF 40-45% * Continue lasix at reduced dose 20 mg given his malnourishment and partially
--- NOTE | 2020-05-07 12:15 | PM.IMPN ---
Progress Note: A&P Assessment and Plan (1) End stage COPD: Code(s): J44.9 - Chronic obstructive pulmonary disease, unspecified Status: Acute Assessment and Plan: He was referred to pulmonology at his last office visit 05/01. Yesterday, he expressed interest with hospitalist regarding discussion of hospice and palliative care, but he refused today. He is maintaining adequate oxygenation on his typical 3L. Continue bronchodilators Continue supplemental O2 with goal saturation 90% or above. Will begin PO prednisone taper. IV solumedrol discontinued on 05/06. (2) Adult failure to thrive: Code(s): R62.7 - Adult failure to thrive Status: Acute Assessment and Plan: Patient is not eating. Main driving factor is end stage COPD and chronic back pain. Continue regular diet and dietary supplements. He had been referred to GI by PCP for possible feeding tube placement but had not made a decision on how he wishes to proceed He would like to be a DNR. (3) Chronic back pain: Qualifiers: Back pain location: back pain in unspecified location Back pain laterality: midline Qualified Code(s): M54.9 - Dorsalgia, unspecified; G89.29 - Other chronic pain Code(s): M54.9 - Dorsalgia, unspecified; G89.29 - Other chronic pain Status: Acute Assessment and Plan: Due to degenerative disease and multiple compression fractures Continue low-dose hydromorphone q4h prn Continue low-dose gabapentin and titrate upward as tolerated Follow up with pain management regarding nerve block Continue PT and OT. (4) Multifocal atrial tachycardia: Code(s): I47.1 - Supraventricular tachycardia Status: Acute Assessment and Plan: Currently asymptomatic. Continue to monitor (5) Chronic respiratory failure: Qualifiers: Respiratory failure complication: hypoxia and hypercapnia Qualified Code(s): J96.11 - Chronic respiratory failure with hypoxia; J96.12 - Chronic respiratory failure with hypercapnia Code(s): J96.10 - Chronic respiratory failure, unspecified whether with hypoxia or hypercapnia Status: Acute Assessment and Plan: Related to end stage COPD. Clinically stable no further evaluation due to his advanced comorbidities (6) Chronic anemia: Code(s): D64.9 - Anemia, unspecified Status: Acute Assessment and Plan: Chronic and stable. Continue to monitor H&H, transfuse as needed. (7) Malnutrition: Qualifiers: Malnutrition type: protein-calorie malnutrition Protein-calorie malnutrition severity: moderate Qualified Code(s): E44.0 - Moderate protein-calorie malnutrition Code(s): E46 - Unspecified protein-calorie malnutrition Status: Acute Assessment and Plan: Poor appetite/refusal to eat. Continue dietary supplements as noted above. Continue mirtazapine at increased dose. (8) AALIYAH (generalized anxiety disorder): Code(s): F41.1 - Generalized anxiety disorder Status: Acute Assessment and Plan: Stable at this time. continue mirtazapine at increased dose 30 mg at night continue p.r.n. alprazolam buspirone discontinued on 05/06. (9) Dilated idiopathic cardiomyopathy: Code(s): I42.0 - Dilated cardiomyopathy Status: Acute Assessment and Plan: EF 40-45% Continue lasix at reduced dose 20 mg given his malnourishment and partially compensated metabolic alkalosis. Continue with low dose potassium 10 mEq daily. (10) Osteoporosis: Qualifiers: Osteoporosis type: unspecified Presence of current pathological fracture: with current pathological fracture Encounter type: sequela Qualified Code(s): M80.00XS - Age-related osteoporosis with current pathological fracture, unspecified site, sequela Code(s): M81.0 - Age-related osteoporosis without current pathological fracture Sta
[2020-05-07 17:57] LABS: Vitamin D 25 Hydroxy 25.7 ng/mL
[2020-05-07] MEDS: DOCUSATE SODIUM 100 MG CAPSULE PO (20:28)
[2020-05-07] MEDS: MIRTAZAPINE 15 MG TABLET 30 MG PO (20:30)
[2020-05-07] MEDS: FUROSEMIDE INJ 40 MG/4 ML VIAL 20 MG IV PUSH (20:46)
[2020-05-07 22:28] LABS: Free T4 Free Thyroxine Reflex 0.92 ng/dL (0.78-2.19)
[2020-05-07 23:14] LABS: Total Triiodothyronine (T3) 0.56 NG/ML (0.97-1.69)
[2020-05-08] VITALS (13 sets, daily range): BP systolic 94–123; BP diastolic 49–74; PULSE 59–112; RESP 16–24; TEMP 36.7–37.3; O2SAT 90–100
[2020-05-08] MEDS: ALBUTEROL SULFATE NEB 2.5 MG/0.5 ML INH 5 MG INHALATION ×4 (01:42→19:45)
[2020-05-08] MEDS: IPRATROPIUM BR 0.02% INH SOLN 0.5 MG/2.5 ML VIAL INHALATION ×4 (01:42→19:44)
[2020-05-08 05:29] LABS: Hematocrit 30.7 % (42.0-52.0); Hemoglobin 9.5 g/dL (14.0-18.0); Mean Corpuscular HGB Conc 30.9 g/dl (32-36); Mean Corpuscular Hemoglobin 31.3 pg (26-34); Mean Platelet Volume 10.2 fl (7.4-10.4); Platelet Count Result 335 k/mm3 (150-375); Red Blood Count 3.04 M/mm3 (4.6-6.20); Red Cell Distribution Width 14.6 % (11.5-14.5); White Blood Count 12.7 K/mm3 (4.5-10.0)
[2020-05-08 05:49] LABS: Blood Urea Nitrogen 24 mg/dL (9-20); Calcium 8.5 mg/dL (8.4-10.2); Carbon Dioxide 36 mmol/L (22-30); Chloride 96 mmol/L (98-107); Estimated CRCL calculation 51 ml/min; Estimated Glomerular Filt Rate > 60; Glucose 144 mg/dL (75-110); Sodium 134 mmol/L (137-145)
[2020-05-08] MEDS: GABAPENTIN 100 MG CAPSULE PO ×3 (06:31→21:03)
[2020-05-08] MEDS: POTASSIUM CHLORIDE 10 MEQ TABLET.ER PO (08:54)
[2020-05-08] MEDS: DOCUSATE SODIUM 100 MG CAPSULE PO (08:54)
[2020-05-08] MEDS: ROFLUMILAST 500 MCG TABLET PO (08:55)
[2020-05-08] MEDS: TAMSULOSIN HCL 0.4 MG CAPSULE 0.8 MG PO (08:55)
[2020-05-08] MEDS: MONTELUKAST SODIUM 10 MG TABLET PO (08:55)
[2020-05-08] MEDS: predniSONE 20 MG TABLET 40 MG PO (08:55)
[2020-05-08] MEDS: FUROSEMIDE 20 MG TABLET PO (08:56)
[2020-05-08] MEDS: FLUTICASONE PROPIONATE 0.05% NA SPR 16 GM BTL (*BKC) 2 SPRAY NASAL (08:56)
[2020-05-08] MEDS: CHOLECALCIFEROL 1,000 UNIT TABLET 2000 UNITS PO (08:56)
[2020-05-08] MEDS: ALPRAZolam 0.5 MG TABLET PO ×2 (08:57→21:10)
[2020-05-08] MEDS: polyethylene glycoL 3350 17 GM POWD.PACK PO (09:08)
[2020-05-08] MEDS: ACETAMINOPHEN 500 MG TABLET PO (11:04)
--- NOTE | 2020-05-08 12:28 | PCDIET ---
Nutrition Follow-Up & MD consult Complete: Pt assessed on Friday and being followed by RD Underweight R/T inadequate intake as evidence by BMI of 15.5 PO intake of 75% of meals and supplements Goal:Goal met. Continue current goal. Pt current nutrition is Regular diet + Enlive TID Nutrition recommendation: Agree Last recorded weight is 41 kg (recommend daily weights) Bowel Motility:05/05 BM+ Labs Reviewed: Glucose 144, BUN 24, Na 134, WBC 12.7, TSH .419 Meds Noted: KCL, Remeron, Prednison, Colace, Albuterol, Xanax, Lasix Additional Notes: Pt with improved appetite, eating 100% of last four meals. Recommend daily weights. Pt is getting enlive TID but states he has not tried it yet. Pt encouraged to utilize supplements. Ensure Enlive provides 350kcal, 20g of protein, and 26 essential vitamins and minerals per serving. Questions answered about EN if pt desires to regain strenght and some weight while continuing to eat. If pt agrees to EN, I would recommend Jevity 1.2 with a goal of 45ml/hr to meet 50% of kcal needs as long as PO intake continues as it has. At 45ml/hr, Jevity 1.2 will provide 1296 kcals, 68% of needs to promote weight gain. At home he can do 330ml TID with PO meals/snacks in between. We will continue to monitor PO intake, wt, and labs every three days.
--- NOTE | 2020-05-08 13:06 | PM.IMPN ---
Progress Note: A&P Assessment and Plan (1) End stage COPD: Code(s): J44.9 - Chronic obstructive pulmonary disease, unspecified Status: Acute Assessment and Plan: He was referred to pulmonology at his last office visit 05/01. On 05/06, he expressed interest with hospitalist regarding discussion of hospice and palliative care, but he has since declined. He is maintaining adequate oxygenation on his typical 3L. Continue bronchodilators Continue supplemental O2 with goal saturation 90-94%. wean to goal. Continue p.o. prednisone taper 40 mg (day 2). IV solumedrol discontinued on 05/06. (2) Adult failure to thrive: Code(s): R62.7 - Adult failure to thrive Status: Acute Assessment and Plan: Patient is not eating. Main driving factor is end stage COPD and chronic back pain. he was discussing possible feeding tube placement with PCP and was considering GI referral. His appetite has improved since his admission. Continue regular diet and dietary supplements. He was seen by the dietitian today. At this time, he would like to wait on the feeding tube until he undergoes kyphoplasty. He believes that he will continue eating more if his pain improves. He would like to be a DNR. (3) Chronic back pain: Qualifiers: Back pain location: back pain in unspecified location Back pain laterality: midline Qualified Code(s): M54.9 - Dorsalgia, unspecified; G89.29 - Other chronic pain Code(s): M54.9 - Dorsalgia, unspecified; G89.29 - Other chronic pain Status: Acute Assessment and Plan: Due to degenerative disease and multiple compression fractures Continue low-dose hydromorphone q4h prn Continue low-dose gabapentin and titrate upward as tolerated He is scheduled for outpatient kyphoplasty on 05/10/2020. COVID test performed today which was ordered prior to procedure. Plan for hopeful discharge tomorrow so he may attend this appointment. Continue PT and OT. (4) Multifocal atrial tachycardia: Code(s): I47.1 - Supraventricular tachycardia Status: Acute Assessment and Plan: Currently asymptomatic. Continue to monitor (5) Chronic respiratory failure: Qualifiers: Respiratory failure complication: hypoxia and hypercapnia Qualified Code(s): J96.11 - Chronic respiratory failure with hypoxia; J96.12 - Chronic respiratory failure with hypercapnia Code(s): J96.10 - Chronic respiratory failure, unspecified whether with hypoxia or hypercapnia Status: Acute Assessment and Plan: Related to end stage COPD. Clinically stable no further evaluation due to his advanced comorbidities (6) Chronic anemia: Code(s): D64.9 - Anemia, unspecified Status: Acute Assessment and Plan: Chronic and stable. Continue to monitor H&H, transfuse as needed. (7) Malnutrition: Qualifiers: Malnutrition type: protein-calorie malnutrition Protein-calorie malnutrition severity: moderate Qualified Code(s): E44.0 - Moderate protein-calorie malnutrition Code(s): E46 - Unspecified protein-calorie malnutrition Status: Acute Assessment and Plan: This is likely multifactorial related to poor appetite, refusal to eat, appetite suppression from narcotic pain medication, and depression. He reports improvement in his oral intake the past 2 days. Continue dietary supplements as noted above. Continue mirtazapine at increased dose. He would like to hold on feeding tube placement at this time as noted above (8) AALIYAH (generalized anxiety disorder): Code(s): F41.1 - Generalized anxiety disorder Status: Acute Assessment and Plan: Stable at this time. continue mirtazapine at increased dose 30 mg at night continue p.r.n. alprazolam buspirone discontinued on 05/06. (9) Dilated idiopathic cardiomyopathy: Code(s): I42.0 - Dilated cardiomyopathy
[2020-05-08] MEDS: DORNASE ALFA INH SOLN 1 MG/ML 2.5 ML AMP 2.5 MG INHALATION (19:45)
[2020-05-08 19:46] LABS: SARS-CoV-2 RNA PCR Negative
[2020-05-08] MEDS: MIRTAZAPINE 15 MG TABLET 30 MG PO (21:03)
[2020-05-08] MEDS: guaiFENesin 12 HR 600 MG TABCR PO (21:03)
[2020-05-09] VITALS (8 sets, daily range): BP systolic 107–109; BP diastolic 74–76; PULSE 72–100; RESP 20–22; TEMP 36.1–36.6; O2SAT 93–99
[2020-05-09] MEDS: ALBUTEROL SULFATE NEB 2.5 MG/0.5 ML INH 5 MG INHALATION ×3 (01:22→14:31)
[2020-05-09] MEDS: IPRATROPIUM BR 0.02% INH SOLN 0.5 MG/2.5 ML VIAL INHALATION ×3 (01:22→14:31)
[2020-05-09] MEDS: GABAPENTIN 100 MG CAPSULE PO ×2 (05:19→13:53)
[2020-05-09] MEDS: FLUTICASONE PROPIONATE 0.05% NA SPR 16 GM BTL (*BKC) 2 SPRAY NASAL (08:21)
[2020-05-09] MEDS: POTASSIUM CHLORIDE 10 MEQ TABLET.ER PO (08:21)
[2020-05-09] MEDS: MONTELUKAST SODIUM 10 MG TABLET PO (08:22)
[2020-05-09] MEDS: TAMSULOSIN HCL 0.4 MG CAPSULE 0.8 MG PO (08:22)
[2020-05-09] MEDS: ALPRAZolam 0.5 MG TABLET PO ×2 (08:22→13:52)
[2020-05-09] MEDS: predniSONE 20 MG TABLET 40 MG PO (08:22)
[2020-05-09] MEDS: LORATADINE 10 MG TABLET PO (08:23)
[2020-05-09] MEDS: ROFLUMILAST 500 MCG TABLET PO (08:23)
[2020-05-09] MEDS: guaiFENesin 12 HR 600 MG TABCR PO (08:23)
[2020-05-09] MEDS: CHOLECALCIFEROL 1,000 UNIT TABLET 2000 UNITS PO (08:23)
[2020-05-09] MEDS: FUROSEMIDE 20 MG TABLET PO (08:23)
[2020-05-09] MEDS: ALBUTEROL SULFATE (*SP) AEROSOL 1 PUFF 2 PUFF INHALATION (15:59)
--- NOTE | 2020-05-10 11:37 | PC.NURSE ---
ON D/C PHONE CALL PT C/O NOT HAVING ANY INHALERS CALLED IN AT DISCHARGE. THESE INHALERS WERE HOME MEDS THAT JAHAIRA ASSUMED HE HAD ALREADY. ORDER FROM JAHAIRA SCOTT TO CALL IN PROAIR AND JENNIE TO [facility]
--- NOTE | 2020-05-13 06:56 | PM.DS ---
DS: Admitting Diagnosis Admitting Diagnosis Admitting Diagnosis: Chronic obstructive pulmonary disease, unspecified <Eugenie JElizabeth Barron PA-C - Last Filed: 05/13/20 07:16> DS: Discharge Diagnosis Discharge Diagnosis (1) End stage COPD: Code(s): J44.9 - Chronic obstructive pulmonary disease, unspecified <Eugenie OrtegaElizabeth Barron PA-C - Last Filed: 05/13/20 07:16> Status: Acute <Eugenie DanielsonMASOOD hutchison - Last Filed: 05/13/20 07:16> Assessment and Plan: He was referred to pulmonology at his last office visit 05/01 but had not made an appointment yet. On 05/06, he expressed interest with hospitalist regarding discussion of hospice and palliative care, but he later decided against that. He maintained adequate oxygenation on his typical 3L. he was given IV Solu-Medrol and bronchodilators. He had been placed on on extended prednisone taper by his PCP about 1 week ago which he should continue. <Eugenie Barron PA-C - Last Filed: 05/13/20 07:16> (2) Adult failure to thrive: Code(s): R62.7 - Adult failure to thrive <Eugenie Barron PA-C - Last Filed: 05/13/20 07:16> Status: Acute <Eugenie OrtegaElizabeth Barron PA-C - Last Filed: 05/13/20 07:16> Assessment and Plan: Main driving factor is end stage COPD and chronic back pain. He has had significantly decreased appetite recently and he was discussing possible feeding tube placement with PCP and was considering GI referral. His appetite has improved significantly during his admission. he was evaluated by today to adelfo and was recommended to continue dietary supplements. At this time, he would like to wait on feeding tube placement until he undergoes a kyphoplasty which is scheduled soon. He believes he will have significant improvement if his pain improves. He reiterated that he would like to be a DNR. <Eugenie Barron PA-C - Last Filed: 05/13/20 07:16> (3) Chronic back pain: Qualifiers: Back pain laterality: midline Back pain location: back pain in unspecified location Qualified Code(s): M54.9 - Dorsalgia, unspecified; G89.29 - Other chronic pain <Eugenie J. Stimac, PA-C - Last Filed: 05/13/20 07:16> Code(s): M54.9 - Dorsalgia, unspecified; G89.29 - Other chronic pain <Eugenie J. Stimac, PA-C - Last Filed: 05/13/20 07:16> Status: Acute <Eugenie J. Stimac, PA-C - Last Filed: 05/13/20 07:16> Assessment and Plan: Due to degenerative disease and multiple compression fractures. His pain was managed with low-dose hydromorphone and gabapentin. He was scheduled for an outpatient kyphoplasty on 05/10/2020, however given his hospitalization, this had to be rescheduled until he was outside of the hospital for 3 days due to insurance policy. His daughter is rescheduling the appointment. He was seen by PT and OT during his admission and will continue home health therapy. <Eugenie J. Stimac, PA-C - Last Filed: 05/13/20 07:16> (4) Multifocal atrial tachycardia: Code(s): I47.1 - Supraventricular tachycardia <Eugenie J. Stimac, PA-C - Last Filed: 05/13/20 07:16> Status: Acute <Eugenie J. Stimac, PA-C - Last Filed: 05/13/20 07:16> Assessment and Plan: Remained asymptomatic and rate was controlled <Eugenie J. Stimac, PA-C - Last Filed: 05/13/20 07:16> (5) Chronic respiratory failure: Qualifiers: Respiratory failure complication: hypoxia and hypercapnia Qualified Code(s): J96.11 - Chronic respiratory failure with hypoxia; J96.12 - Chronic respiratory failure with hypercapnia <Eugenie J. Stimac, PA-C - Last Filed: 05/13/20 07:16> Code(s): J96.10 - Chronic respiratory failure, unspecified whether with hypoxia or hypercapnia <Eugenie J. Stimac, PA-C - Last Filed: 05/13/20 07:16> Status: Acute <Uegenie J. Stimac, PA-C - Last Filed: 05/13/20 07:16> Assessment and Plan: Related to
== END 2020-05-09 21:21 | disposition home health service (06) | DRG 191 ==
LOC: ANHED 14:57 → ANH2MED 15:23
PROVIDERS: Emergency Medicine; Internal Medicine; Nurse Practitioner; Admitting Provider Internal Medicine; Emergency Provider Emergency Medicine; PCP Family Medicine; Visit Provider Physician Assistant
DX: J44.9 Chronic obstructive pulmonary disease, unspecified (principal); I47.1 Supraventricular tachycardia; J96.11 Chronic respiratory failure with hypoxia; J96.12 Chronic respiratory failure with hypercapnia; E44.0 Moderate protein-calorie malnutrition; Z68.1 Body mass index [BMI] 19.9 or less, adult; I42.0 Dilated cardiomyopathy; R62.7 Adult failure to thrive; K59.03 Drug induced constipation; T40.605A Adverse effect of unspecified narcotics, initial encounter; Z11.59 Encounter for screening for other viral diseases; G89.29 Other chronic pain; R63.0 Anorexia; M54.9 Dorsalgia, unspecified; D64.9 Anemia, unspecified; F41.1 Generalized anxiety disorder; F32.9 Major depressive disorder, single episode, unspecified; M81.0 Age-related osteoporosis without current pathological fracture; N40.0 Benign prostatic hyperplasia without lower urinary tract symptoms; I50.9 Heart failure, unspecified; Z66 Do not resuscitate; Z87.891 Personal history of nicotine dependence; Z99.81 Dependence on supplemental oxygen
CPT/HCPCS: 36415; 36600; 80048; 80053; 82306; 82805; 83605; 83735; 84100; 84439; 84443; 84480; 85025; 85027; 85610; 85730; 86140; 87040; 87076; 87635; 93005; 94640; 96374; 96376; 97110; 97116; 97161; 97167; 97530; 99285; A9270; C9803; G0378; J1940; J2930; J7512; U0003

== ENCOUNTER 2020-06-01 18:35 | Emergency (ER) | payer MEDICARE, MEDICAID, SELFPAY ==
--- NOTE | ~2020-06-01 | XR_ITS ---
XR abdomen/kub 1V 06/01/2020 19:26 INDICATION: Constipation. TECHNIQUE: KUB COMPARISON: None FINDINGS: There is fecal impaction of the rectum. Nonobstructive bowel gas pattern. There are multipl e thoracic and lumbar compression fractures many of which are associated with vertebral plasty change s. Osteopenia. Bowel content obscures the kidneys. Lung bases unremarkable. IMPRESSION: 1: Fecal impaction of the rectum.. Reviewed, dictated and finalized at location A.
[2020-06-01 18:37] VITALS: BP 111/89; PULSE 101; RESP 17; TEMP 37.2; O2SAT 99
--- NOTE | 2020-06-01 19:03 | ED.GENADULT ---
HPI - General Adult General Chief complaint: Abdominal Pain Stated complaint: Constipation Time Seen by Provider: 06/01/20 18:49 Source: patient History of Present Illness HPI narrative: 75-year-old male presents to emergency department unable to have a bowel movement for the past 3 days. Patient states he has never had this in the past before. He has not tried anything to have a bowel movement. No current abdominal pain. No chest pain or shortness of breath. No nausea or vomiting. Related Data Home Medications Medication Instructions Recorded Confirmed hydrocodone-acetaminophen 1 tablet PO Q8H PRN 04/28/20 05/05/20 tamsulosin [Flomax] 0.8 mg PO DAILY 04/28/20 05/05/20 Allergies Allergy/AdvReac Type Severity Reaction Status Date / Time aspirin AdvReac Nausea and Verified 06/01/20 21:53 Vomiting Review of Systems Review of Systems: Narrative: CONSTITUTIONAL: Denies fever, chills, or sweats. EYES: Denies visual changes, redness, or discharge. ENT: Denies rhinorrhea, congestion, sore throat, or otalgia. CARDIOVASCULAR: Denies chest pain, palpitations, or edema. RESPIRATORY: Denies cough or dyspnea. GASTROINTESTINAL: Denies abdominal pain, nausea, vomiting, or diarrhea. Positive for constipation GENITOURINARY: Denies dysuria or hematuria. SKIN: Denies rash or itching. MUSCULOSKELETAL: Denies back pain, joint pain, or myalgia. NEUROLOGIC: Denies headache, numbness, dizziness, or weakness. PSYCHIATRIC: Denies anxiety or depression. All systems reviewed & are unremarkable except as noted in HPI and below (ROS) [facility] Past Medical History Medical History Abnormal gait due to muscle weakness Anxiety Atrial fib/flutter, transient BPH (benign prostatic hyperplasia) Chronic anemia Chronic pain Chronic pain disorder Chronic respiratory failure with hypoxia Compression fracture T5 and T11 s/p vertebroplasty; also with T6, T9, T12 and L1 Congestive heart failure Constipation due to opioid therapy COPD (chronic obstructive pulmonary disease) Dilated idiopathic cardiomyopathy AALIYAH (generalized anxiety disorder) Malnutrition On home O2 3L Surgical History Surgical History Previous back surgery S/P kyphoplasty Family History Family History Father Acute myocardial infarction Sibling Acute myocardial infarction 5 brothers Social History Social History Social History: . Lives at home with dtr and grandchildren. Quit smoking 2019 after smoking 1/2 ppd since age 10yo. Rare alcohol use and no drug use. Patient is a DNR. Patient nominates his daughter to be the individual would make medical decisions for if he is unable. the patient has 5 children. He was in the at 1 time. 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 Smoking packs per day: 1.5 Smoking cigarettes per day: 30.0 Years smoked: 63 Smoking pack-years: 94.50 Tobacco type: cigarettes Smoking end date: 06/25/20 Alcohol intake: never Drinks per week: 4 Substance use: never Substance use type: does not use Gender identity (if verbalized by the patient): Male Spiritual care concerns: No Agree to blood products: Yes Exam Narrative: Exam Narrative: GENERAL: Cooperative, no acute distress. HEAD: Normocephalic, atraumatic. EYES: PERRLA and EOMI. ENT: Nares clear, no rhinorrhea or epistaxis. Mucous membranes moist. NECK: Supple. CHEST: No respiratory distress, decreased breath sounds bilaterally HEART: Regular rate and rhythm. No murmur heard. Normal peripheral pulses. ABDOMEN: Soft, nontender, nondistended, normal active bowel sounds. EXTREMITIES: Normal range of motion. 1+ pitting edema lower extremities bilaterally SKIN: Warm, dry, no rash. NEURO: No focal deficits. Alert and oriented x3. PSYCH:
[2020-06-01] MEDS: SODIUM CHLORIDE 0.9% IV 500 ML 999 ML IV CONT (19:35)
[2020-06-01 20:05] LABS: Basophils Percent Auto 0.1 % (0.2-1.2); Hematocrit 34.7 % (42.0-52.0); Hemoglobin 10.8 g/dL (14.0-18.0); Immature Granulocyte Absolute 0.17 K/mm3 (0.00-0.031); Immature Granulocyte Percent A 1.1 % (0-0.5); Lymphocytes Absolute Auto 0.41 K/mm3 (0.9-3.2); Lymphocytes Percent Auto 2.6 % (18.3-44.2); Mean Corpuscular HGB Conc 31.1 g/dl (32-36); Mean Corpuscular Volume 99.7 fl (80-100); Monocytes Absolute Auto 0.4 K/mm3 (0.1-0.6); Monocytes Percent Auto 2.4 % (2.6-8.5); Neutrophils Absolute Auto 14.7 K/mm3 (1.3-6.7); Neutrophils Percent Auto 93.8 % (45.5-73.1); Platelet Count Result 211 k/mm3 (150-375); Red Blood Count 3.48 M/mm3 (4.6-6.20); Red Cell Distribution Width 15.6 % (11.5-14.5); White Blood Count 15.7 K/mm3 (4.5-10.0)
[2020-06-01 20:18] LABS: Alanine Aminotransferase 19 U/L (4-50); Alkaline Phosphatase 101 U/L (38-126); Anion Gap 1 mmol/L (8-16); Aspartate Amino Transferase 20 U/L (17-59); Bilirubin,Total 0.3 mg/dL (0.2-1.3); Blood Urea Nitrogen 30 mg/dL (9-20); Calcium 8.1 mg/dL (8.4-10.2); Carbon Dioxide 34 mmol/L (22-30); Chloride 99 mmol/L (98-107); Estimated CRCL calculation 63 ml/min; Estimated Glomerular Filt Rate > 60; Glucose 122 mg/dL (75-110); Lipase 77 U/L (23-300); Potassium 4.7 mmol/L (3.4-5.0); Sodium 134 mmol/L (137-145)
[2020-06-01] MEDS: KETOROLAC 15 MG/ML VIAL (*BKC) IV PUSH (21:33)
[2020-06-01] MEDS: MAGNESIUM CITRATE 300 ML BTL PO (21:33)
[2020-06-01 21:55] VITALS: BP 117/76; PULSE 94; RESP 18; O2SAT 95
== END 2020-06-01 21:56 | disposition home or self-care (01) ==
PROVIDERS: Emergency Provider Emergency Medicine; PCP Family Medicine
DX: K59.00 Constipation, unspecified (principal); Z87.891 Personal history of nicotine dependence; N40.0 Benign prostatic hyperplasia without lower urinary tract symptoms; G89.4 Chronic pain syndrome; J96.11 Chronic respiratory failure with hypoxia; I50.9 Heart failure, unspecified; J44.9 Chronic obstructive pulmonary disease, unspecified; Z99.81 Dependence on supplemental oxygen
CPT/HCPCS: 36415; 74018; 80053; 83690; 85025; 96361; 96374; 99284; A9270; J1885; J3010; J7040

== ENCOUNTER 2020-06-04 04:22 | Inpatient (IN) | payer MEDICARE, MEDICAID, SELFPAY ==
[2020-06-04] VITALS (21 sets, daily range): BP systolic 84–133; BP diastolic 40–99; PULSE 48–132; RESP 18–28; TEMP 36.1–37.3; O2SAT 78–100; BMI 13.8
--- NOTE | ~2020-06-04 | CT_ITS ---
EXAMINATION: CT abdomen pelvis w con DATE: 06/04/2020 06:56 INDICATION: Lower abdominal pain TECHNIQUE: Computed tomography (CT) of the abdomen and pelvis was performed with 100 mL Omnipaque-350 intravenous contrast. Automated exposure control and iterative reconstruction technique were employe d. The dose-length product was 178.81 mGy-cm. COMPARISON: None FINDINGS: Severe emphysema. Mild discoid atelectasis in the right lower lobe. Calcified right middle lobe nodul e consistent with old granulomatous disease. Borderline heart size. No pericardial or pleural effusio n. Liver, gallbladder, spleen, pancreas, bilateral adrenal glands and kidneys. Prominent distention o f the bladder measuring 10.7 x 9.4 x 8.5 cm. There are few scattered colonic diverticula without urvashi cent inflammatory change to suggest diverticulitis. No bowel obstruction. The appendix is not visuali zed. No pericecal inflammatory change to suggest acute appendicitis. No free intraperitoneal gas or f luid. No pathologically enlarged abdominal or pelvic lymphadenopathy. There is calcified atherosclero sis of the aorta and many of the other arteries. Multiple compression fractures in the lumbar and low er thoracic spine of varying chronicities including more recent compression fractures at T10, L1 and L4 which are without interval change in vertebral body height since MRI dated 04/20/2020. Additional m ore chronic compression fractures at T12 and with prior vertebroplasty is at T11 and L3. IMPRESSION: 1. No acute intra-abdominal/pelvic process. 2. Severe emphysema. 3. Prominent distention of the bladder. Correlate clinically for either outlet 4. Multiple chronic and subacute lumbar and lower thoracic compression fractures without interval arturo nge since 04/17/2020 obstruction or neurogenic bladder. Reviewed, dictated and finalized at location A. IMPRESSION: 1. No acute intra-abdominal/pelvic process. 2. Severe emphysema. 3. Prominent distention of the bladder. Correlate clinically for either outlet 4. Multiple chronic and subacute lumbar and lower thoracic compression fracture s without interval change since 04/17/2020 obstruction or neurogenic bladder.
--- NOTE | ~2020-06-04 | XR_ITS ---
EXAMINATION: XR chest 1V portable DATE: 06/04/2020 05:57 INDICATION: Weakness TECHNIQUE: frontal view of the chest was obtained. COMPARISON: Chest radiograph dated 05/01/2020 FINDINGS: Hyperexpansion of lungs with architectural distortion consistent with emphysema. Mild biapical pleura l-parenchymal scarring. A few chronic small calcified nodules in the right lung consistent with old g ranulomatous disease. No new airspace opacities, pulmonary edema, pleural effusion or pneumothorax. T he cardiomediastinal silhouette is normal. Multiple thoracic and lumbar compression fractures with ve rtebroplasty is at T5, T6, T9 and T11. IMPRESSION: 1. Emphysema. No acute cardiopulmonary disease. 2. 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 Reviewed, dictated and finalized at location A. IMPRESSION: 1. Emphysema. No acute cardiopulmonary disease. 2. Multiple chronic compression fractures, several with vertebral plasties in t he thoracic and upper lumbar spine.
--- NOTE | 2020-06-04 04:56 | ECG_ITS ---
Measurements Intervals [place] Rate: 132 P: 80 [place]: 111 QRS: 64 QRSD: 74 T: 103 QT: 283 QTc: 420 Interpretive Statements SINUS TACHYCARDIA WITH SHORT [place] INTERVAL FREQUENT ATRIAL PREMATURE COMPLEXES DELAYED PRECORDIAL R/S TRANSITION LEFT VENTRICULAR HYPERTROPHY AND ST-T CHANGE ST-T WAVE ABNORMALITY IN INF/LAT LEADS- CONSIDER ISCHEMIA ABNORMAL ECG Electronically Signed On 06-04-2020 7:44:48 CDT by Syed Woody D.O.
--- NOTE | 2020-06-04 05:02 | ED.GENADULT ---
HPI - General Adult General Chief complaint: Unspecified Stated complaint: multiple complaints Time Seen by Provider: 06/04/20 04:40 Source: patient Mode of arrival: EMS Limitations: other (poor historian) History of Present Illness HPI narrative: This patient is a 75 year old male with history of End stage COPD, chronic back pain who presents from home for evaluation of blood in his stool . Patient told nursing staff that he was constipated for 6 days. He was seen in the ER 2 days for constipation. Tonight he was straining to have a bowel movement and he had large amount of stool. It was then noticed that also passed blood in his stool. He denies nausea or vomiting. He does reports mild lower abdominal pain. He is a poor historian and he states answering questions makes him sob so please don't ask anything else. Related Data Home Medications Medication Instructions Recorded Confirmed hydrocodone-acetaminophen 1 tablet PO Q8H PRN 04/28/20 06/04/20 tamsulosin [Flomax] 0.8 mg PO DAILY 04/28/20 06/04/20 Allergies Allergy/AdvReac Type Severity Reaction Status Date / Time aspirin AdvReac Nausea and Verified 06/01/20 21:53 Vomiting Review of Systems Review of Systems: ROS unobtainable: Yes other (poor historia) [facility] Social History Social History Social History: . Lives at home with dtr and grandchildren. Quit smoking 2019 after smoking 1/2 ppd since age 10yo. Rare alcohol use and no drug use. Patient is a DNR. Patient nominates his daughter to be the individual would make medical decisions for if he is unable. the patient has 5 children. He was in the at 1 time. 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 Smoking packs per day: 1.5 Smoking cigarettes per day: 30.0 Years smoked: 63 Smoking pack-years: 94.50 Smoking status: Former smoker Tobacco type: cigarettes Alcohol intake: never Drinks per week: 4 Substance use: never Substance use type: does not use Gender identity (if verbalized by the patient): Male Spiritual care concerns: No Agree to blood products: Yes Exam Const: General: alert and ill appearing Nutritional Appearance: thin (cachetic) Orientation/consciousness: patient oriented x3 HENMT: Head: normocephalic and atraumatic Face and sinus: face symmetric Eyes: EOM: EOMs intact bilaterally Resp: Effort & Inspection: tachypneic Auscultation: clear to auscultation bilaterally, no wheezes and diminished lung sounds Cardio: Rate: regular rate Rhythm: regular rhythm Heart sounds: no murmurs GI: Inspection: distended GI Palp: Yes Soft to palpation, Yes Tenderness to palpation present (GI), No Guarding due to palpation present (GI) and No Rigid due to palpation Other: ulceration around anus , dark blood on digital exam Skin: Other: bruising to bilateral hands and left foot Extrem: General: edema bilateral (pedal edema) Course Consultations Consultation #1: I Discussed with Dr. Méndez patient with failure to thrive and rectal bleeding. He accepts for admission. Date: 06/04/20 Time: 08:38 Vital Signs Vital signs: Vital Signs Temperature 97.8 F 06/04/20 04:26 Pulse Rate 48 L 06/04/20 04:26 Respiratory Rate 18 06/04/20 04:26 Blood Pressure 94/43 L 06/04/20 04:26 Pulse Oximetry 100 06/04/20 04:26 Temperature 98.8 F 06/04/20 16:00 Pulse Rate 119 H 06/04/20 18:00 Respiratory Rate 28 H 06/04/20 16:00 Blood Pressure 95/40 L 06/04/20 16:00 Pulse Oximetry 95 06/04/20 16:00 Medical Decision Making Vital Signs Vital Signs: Vital Signs Temperature 97.8 F 06/04/20 04:26 Pulse Rate 48 L 06/04/20 04:26 Respiratory Rate 18 06/04/20 04:26 Blood Pressure 94/43 L 06/04/20 04:26 Pulse Oximetry 100 06/04/20 04:26 Temperature 98.8 F 06/04/20 16:00 Pulse Rate 119 H 06/04/20 18:00 Respiratory Rate 28 H 06/04/20 16:00 Blood Pressure 95/40 L
[2020-06-04 05:37] LABS: Alveolar/Arterial O2 Gradient 80.3 mmHg; Base Excess ABG 8.7 mEq/l (+/-2.0); Fractional Inspired Oxygen 34 %; HCO3 ABG 33.4 mEq/l (22.0-26.0); Methemoglobin ABG 0.2 %THb (0-1.5); Oxygen Content ABG 15.8 %vol (16.0-22.0); Oxygen Saturation ABG 98.1 % (95.0-100.0); Oxyhemoglobin 97.6 % THb (90.0-100.0); PCO2 ABG 46.9 mmHg (35.0-45.0); PO2 ABG 107.5 mmHg (80.0-100.0); PO2 FiO2 Ratio Arterial Blood 3.16 %; Reduced Hemoglobin 2.2 %THb (0-5.0); Total Hemoglobin 11.4 g/dL (12.0-18.0); pH ABG 7.471 (7.350-7.450)
[2020-06-04 05:38] LABS: Device NASAL CANNULA; Liters per Minute 3.5 LPM; Modified Allen's Test Pass; Site Drawn RIGHT RADIAL
[2020-06-04 05:55] LABS: Hematocrit 32.3 % (42.0-52.0); Hemoglobin 10.3 g/dL (14.0-18.0); Mean Corpuscular HGB Conc 31.9 g/dl (32-36); Mean Corpuscular Hemoglobin 31.5 pg (26-34); Mean Corpuscular Volume 98.8 fl (80-100); Mean Platelet Volume 10.2 fl (7.4-10.4); Platelet Count Result 171 k/mm3 (150-375); Red Blood Count 3.27 M/mm3 (4.6-6.20); Red Cell Distribution Width 15.4 % (11.5-14.5); White Blood Count 14.3 K/mm3 (4.5-10.0)
[2020-06-04 06:06] LABS: Alanine Aminotransferase 23 U/L (4-50); Albumin Level 3.3 g/dL (3.5-5.1); Alkaline Phosphatase 123 U/L (38-126); Anion Gap 4 mmol/L (8-16); Aspartate Amino Transferase 25 U/L (17-59); Bilirubin,Total 0.7 mg/dL (0.2-1.3); Blood Urea Nitrogen 44 mg/dL (9-20); Calcium 8.1 mg/dL (8.4-10.2); Carbon Dioxide 37 mmol/L (22-30); Chloride 92 mmol/L (98-107); Estimated CRCL calculation 56 ml/min; Estimated Glomerular Filt Rate > 60; Glucose 124 mg/dL (75-110); Potassium 4.2 mmol/L (3.4-5.0); Prothrombin Time 13.2 Seconds (11.1-14.7); Sodium 133 mmol/L (137-145)
[2020-06-04 06:07] LABS: Partial Thromboplastin Time 21.3 SECONDS (22.3-36.8)
[2020-06-04 06:20] LABS: Band Neutrophils Percent 8 % (0-6); Hypochromasia 2+ (NORMAL); Lymphocytes Absolute Manual 0.14 K/mm3 (1.1-4.5); Monocytes Absolute Manual 0.14 K/mm3 (0.1-0.90); Monocytes Percent Manual 1 % (3-9); Neutrophils Absolute Manual 14.01 K/mm3 (1.3-6.7); Neutrophils Percent Manual 90 % (46-73); Platelet Estimate Adequate (Adequate); Total Cells Counted 100
[2020-06-04] MEDS: SODIUM CHLORIDE 0.9% IV 1,000 ML 999 ML IV CONT (07:02)
--- NOTE | 2020-06-04 08:01 | PC.NURSE ---
Patient asking for breathing treatment. Dr Varner aware
[2020-06-04 08:26] LABS: Lactic Acid Reflex 2.8 mmol/L (0.7-2.1)
[2020-06-04] MEDS: ALBUTEROL SULFATE NEB 2.5 MG/0.5 ML INH 5 MG INHALATION ×3 (08:27→19:22)
[2020-06-04] MEDS: IPRATROPIUM BR 0.02% INH SOLN 0.5 MG/2.5 ML VIAL INHALATION ×2 (08:27→19:22)
[2020-06-04 10:57] LABS: Reflex Lactic Acid Yes or No Add Lactic
--- NOTE | 2020-06-04 11:06 | ADMGEN ---
This patient, Aamir Cortez, was admitted to IMU Room 200-01 at 1057 on 06/03/2020. Patient/family oriented to hospital policies and general routines including ID bracelet, bed and alarms, visiting hours, pain management, procedures, bathroom and other care routines, personal items, smoking policy, room service/diet, and visiting hours. Valuables list has been completed. Information on how to activate the Rapid Response Team has been discussed. Patient/Family are encouraged to report perceived risks to care and to ask questions if they do not understand what they are told or what they should do.
[2020-06-04] MEDS: LIDOCAINE 5% PATCH 1 PATCH TRANSDERM ×2 (12:49)
[2020-06-04] MEDS: methylPREDNISolone SOD SUCC 125 MG VIAL IV PUSH (12:58)
[2020-06-04] MEDS: PANTOPRAZOLE SODIUM IV 40 MG VIAL IV PUSH ×2 (13:30→21:15)
[2020-06-04 15:00] LABS: Hemoglobin 8.7 g/dL (14.0-18.0)
[2020-06-04 15:32] LABS: Lactic Acid 4.2 mmol/L (0.7-2.1)
[2020-06-04] MEDS: SODIUM CHLORIDE 0.9% IV 1,000 ML 125 ML IV CONT (16:24)
--- NOTE | 2020-06-04 16:35 | PM.IMHP ---
H&P: HPI History of Present Illness Date/Time: 06/04/20 16:35 Chief complaint: End stage COPD, failure to thrive rectal bleeding Narrative: Aamir Cortez is a 75 year old male with history of end-stage COPD chronically on statin steroid and updraft patient presented emergency department with a complaint abdominal pain, constipation, and blood in the stool, apparently patient had a complains of constipation couple of days he was seen in emergency department and again he presented emergency department with rectal bleeding, a very poor historian is difficult to understand he does not want talk very much, CT scan of the abdomen did not show any significant pathology to contribute to rectal bleeding nor any ischemia, will consult GI for further recommendation, patient lactic acid is elevated unlikely secondary due to infection as patient white count of chronically elevated due to chronic use of steroids, patient does not have any fever, again CT scan of abdominal and did not show any ischemia, most likely due to hypoxia, will gently hydrate the patient considering patient has severe COPD and hypoxia. Review of Systems Review of Systems: ROS unobtainable: Yes unobtainable due to medical condition [facility] Social History Social History Social History: . Lives at home with dtr and grandchildren. Quit smoking 2019 after smoking 1/2 ppd since age 10yo. Rare alcohol use and no drug use. Patient is a DNR. Patient nominates his daughter to be the individual would make medical decisions for if he is unable. the patient has 5 children. He was in the at 1 time. 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 Smoking packs per day: 1.5 Smoking cigarettes per day: 30.0 Years smoked: 63 Smoking pack-years: 94.50 Smoking status: Former smoker Tobacco type: cigarettes Alcohol intake: never Drinks per week: 4 Substance use: never Substance use type: does not use Gender identity (if verbalized by the patient): Male Spiritual care concerns: No Agree to blood products: Yes Meds Home Medications and Allergies Home Medications Medication Instructions Recorded Confirmed Type acetaminophen 500 mg PO Q4H PRN #0 tablet 11/09/19 06/04/20 Rx levocetirizine 5 mg tablet 5 mg PO QPM #90 tablet 12/13/19 06/04/20 Rx ipratropium 0.5 mg-albuterol 3 mg 3 ml INHALATION QID #90 ml 02/09/20 06/04/20 Rx (2.5 mg base)/3 mL nebulization soln albuterol sulfate 90 mcg/actuation 2 inhalation INHALATION Q4H PRN 02/21/20 06/04/20 Rx aerosol inhaler #8.5 gm hydrocodone-acetaminophen 1 tablet PO Q8H PRN 04/28/20 06/04/20 History tamsulosin [Flomax] 0.8 mg PO DAILY 04/28/20 06/04/20 History cholecalciferol (vitamin D3) 2,000 unit PO QAM #30 tablet 05/09/20 06/04/20 Rx [Vitamin D3] furosemide [Lasix] 20 mg PO DAILY #0 tablet 05/09/20 06/04/20 Rx gabapentin 100 mg PO Q8HR #30 cap 05/09/20 06/04/20 Rx mirtazapine [Remeron] 30 mg PO HS #30 tablet 05/09/20 06/04/20 Rx potassium chloride [K-Tab] 10 meq PO DAILY@0800 #30 tablet 05/09/20 06/04/20 Rx diltiazem HCl 120 mg capsule,24 120 mg PO QAM #90 cap 05/10/20 06/04/20 Rx hr,extended release hydroxyzine HCl 25 mg tablet 25 mg PO TID PRN #270 tablet 05/10/20 06/04/20 Rx alprazolam 0.5 mg tablet 0.5 mg PO TID PRN #90 tablet 05/18/20 06/04/20 Rx budesonide-formoterol HFA 160 2 puff INHALATION BID #10.2 gm 05/23/20 06/04/20 Rx mcg-4.5 mcg/actuation aerosol inhaler montelukast 10 mg tablet See Rx Instructions .ROUTE 05/31/20 06/04/20 Rx .COMPLEX #90 tablet roflumilast 500 mcg tablet See Rx Instructions .ROUTE 05/31/20 06/04/20 Rx .COMPLEX #30 tablet Allergies Allergy/AdvReac Type Severity Reaction Status Date / Time aspirin AdvReac Nausea and Verified 06/01/20 21:53 Vomiting Vital Signs Vital Signs - 24 hr 06/04/20 04:26 06/04/20 05:52 06/04/20 07:10 Temperature 97.8 F Pulse Rate 48 L 132 H 130 H Re
[2020-06-04 18:09] LABS: Hematocrit 28.4 % (42.0-52.0)
[2020-06-04 18:48] LABS: Lactic Acid Reflex 4.5 mmol/L (0.7-2.1)
[2020-06-04 20:18] LABS: Glucose Point of Care 278 (65-105)
[2020-06-04] MEDS: GABAPENTIN 100 MG CAPSULE PO (21:15)
[2020-06-04] MEDS: MIRTAZAPINE 30 MG TABLET PO (21:15)
[2020-06-04 21:31] LABS: Hematocrit 26.9 % (42.0-52.0); Hemoglobin 8.2 g/dL (14.0-18.0)
[2020-06-04] MEDS: ALPRAZolam 0.5 MG TABLET PO (22:51)
[2020-06-04 23:26] LABS: IFOB Positive Control Positive; Immunochemical Fecal Occult Bl Positive (N)
[2020-06-05] VITALS (21 sets, daily range): BP systolic 89–110; BP diastolic 45–83; PULSE 102–166; RESP 20–22; TEMP 36.5–38.1; O2SAT 78–98; BMI 15.5
[2020-06-05] MEDS: ALBUTEROL SULFATE NEB 2.5 MG/0.5 ML INH 5 MG INHALATION ×4 (01:12→20:52)
[2020-06-05] MEDS: IPRATROPIUM BR 0.02% INH SOLN 0.5 MG/2.5 ML VIAL INHALATION ×4 (01:13→20:53)
[2020-06-05] MEDS: SODIUM CHLORIDE 0.9% IV 1,000 ML 125 ML IV CONT (01:14)
[2020-06-05] MEDS: metroNIDAZOLE 500 MG/ISO 100ML 500 MG/100 ML BAG 100 MG IVPB ×3 (02:28→17:00)
[2020-06-05] MEDS: ACETAMINOPHEN 500 MG TABLET PO (02:51)
[2020-06-05] MEDS: GABAPENTIN 100 MG CAPSULE PO (05:46)
[2020-06-05 07:20] LABS: Hematocrit 25.2 % (42.0-52.0); Hemoglobin 7.8 g/dL (14.0-18.0); Immature Platelet Fraction Pct 4.6 % (0.9-11.2); Mean Platelet Volume 10.8 fl (7.4-10.4); Platelet Count Result 107 k/mm3 (150-375); Red Blood Count 2.52 M/mm3 (4.6-6.20); Red Cell Distribution Width 15.9 % (11.5-14.5); White Blood Count 17.9 K/mm3 (4.5-10.0)
[2020-06-05 07:26] LABS: Anion Gap 0 mmol/L (8-16); Blood Urea Nitrogen 42 mg/dL (9-20); Calcium 7.4 mg/dL (8.4-10.2); Carbon Dioxide 34 mmol/L (22-30); Chloride 98 mmol/L (98-107); Estimated CRCL calculation 44 ml/min; Estimated Glomerular Filt Rate > 60; Glucose 158 mg/dL (75-110); Potassium 3.8 mmol/L (3.4-5.0); Sodium 132 mmol/L (137-145)
[2020-06-05] MEDS: ALPRAZolam 0.5 MG TABLET PO ×2 (08:13→16:54)
[2020-06-05] MEDS: MONTELUKAST SODIUM 10 MG TABLET PO (08:14)
[2020-06-05] MEDS: CHOLECALCIFEROL 1,000 UNITS TABLET 2000 UNITS PO (08:15)
[2020-06-05] MEDS: FUROSEMIDE 20 MG TABLET PO (08:15)
[2020-06-05] MEDS: TAMSULOSIN HCL 0.4 MG CAPSULE 0.8 MG PO (08:15)
[2020-06-05] MEDS: POTASSIUM CHLORIDE 10 MEQ TABLET.ER PO (08:16)
[2020-06-05] MEDS: LIDOCAINE 5% PATCH 1 PATCH TRANSDERM ×2 (08:17)
--- NOTE | 2020-06-05 08:43 | ECG_ITS ---
Measurements Intervals [place] Rate: 129 P: 75 [place]: 111 QRS: 38 QRSD: 80 T: 120 QT: 302 QTc: 443 Interpretive Statements SINUS TACHYCARDIA WITH SHORT [place] INTERVAL ATRIAL TRIPLET AND FREQUENT ATRIAL PREMATURE COMPLEXES DELAYED PRECORDIAL R/S TRANSITION T WAVE ABNOMALITY IN LATERAL LEADS- CONSIDER ISCHEMIA BASELINE ARTIFACT- V1 ABNORMAL ECG Electronically Signed On 06-05-2020 9:00:31 CDT by Syed Woody D.O.
[2020-06-05] MEDS: MORPHINE SULFATE 2 MG/ML INJ IV PUSH ×4 (09:14→16:55)
[2020-06-05 09:21] LABS: Lactic Acid Reflex 1.9 mmol/L (0.7-2.1)
[2020-06-05] MEDS: PANTOPRAZOLE SODIUM IV 40 MG VIAL IV PUSH (11:32)
[2020-06-05 12:25] LABS: Glucose Point of Care 151 (65-105)
--- NOTE | 2020-06-05 16:16 | WPDGICN ---
Assessment and Plan Assessment and plan (1) Rectal bleeding: Code(s): K62.5 - Hemorrhage of anus and rectum Status: Acute Assessment and Plan: Patient with rectal bleeding after a hard bowel movement suggestive of hemorrhoidal bleeding. Plan is to monitor hemoglobin and treat conservatively. Patient has end-stage COPD and is high risk for further invasive testing. Would recommend stool softeners and laxatives as needed. Defer colonoscopy unless absolutely necessary. Patient is currently listed as Victorino and DNR currently medical status would not allow investigation safely. (2) End stage COPD: Code(s): J44.9 - Chronic obstructive pulmonary disease, unspecified Status: Acute (3) Constipation due to opioid therapy: Code(s): K59.03 - Drug induced constipation; T40.2X5A - Adverse effect of other opioids, initial encounter Status: Acute Assessment and Plan: Stool softeners and laxatives are suggested. Attempt to limit opioid therapy is strongly encourage. GI Consult Note Consult date/time: 06/05/20 16:16 HPI: Aamir Cortez is a 75 year old male I am asked to see because of blood in the stool. Patient apparently has had recent bout of constipation. As to passing a large stool he is had subsequent bright red blood per rectum this occurred on several occasions at home and has been documented by the nursing staff since admission to the hospital. Patient is unable to give any useful history. He has a past medical history of COPD, he has been made DNR at home period and has requested limited resuscitation measures. Review of Systems Review of Systems: ROS unobtainable: Yes unobtainable due to mental status PMFSH Past Medical History Medical History Abnormal gait due to muscle weakness Anxiety Atrial fib/flutter, transient BPH (benign prostatic hyperplasia) Chronic anemia Chronic pain Chronic pain disorder Chronic respiratory failure with hypoxia Compression fracture T5 and T11 s/p vertebroplasty; also with T6, T9, T12 and L1 Congestive heart failure Constipation due to opioid therapy COPD (chronic obstructive pulmonary disease) Dilated idiopathic cardiomyopathy AALIYAH (generalized anxiety disorder) Malnutrition On home O2 3L Surgical History Surgical History Previous back surgery S/P kyphoplasty Family History Family History Father Acute myocardial infarction Sibling Acute myocardial infarction 5 brothers Social History Social History Social History: . Lives at home with dtr and grandchildren. Quit smoking 2019 after smoking 1/2 ppd since age 10yo. Rare alcohol use and no drug use. Patient is a DNR. Patient nominates his daughter to be the individual would make medical decisions for if he is unable. the patient has 5 children. He was in the at 1 time. 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 Smoking packs per day: 1.5 Smoking cigarettes per day: 30.0 Years smoked: 63 Smoking pack-years: 94.50 Smoking status: Former smoker Tobacco type: cigarettes Alcohol intake: never Drinks per week: 4 Substance use: never Substance use type: does not use Gender identity (if verbalized by the patient): Male Spiritual care concerns: No Agree to blood products: Yes Meds Home Medications and Allergies Home Medications Medication Instructions Recorded Confirmed Type acetaminophen 500 mg PO Q4H PRN #0 tablet 11/09/19 06/04/20 Rx levocetirizine 5 mg tablet 5 mg PO QPM #90 tablet 12/13/19 06/04/20 Rx ipratropium 0.5 mg-albuterol 3 mg 3 ml INHALATION QID #90 ml 02/09/20 06/04/20 Rx (2.5 mg base)/3 mL nebulization soln albuterol sulfate 90 mcg/actuation 2 inhalation INHALATION Q4H PRN 02/21/20 06/04/20 Rx aerosol
--- NOTE | 2020-06-05 16:48 | PC.NURSE ---
Patient began to cry, grimace, and screamed out in pain when turned to right side at 1625. Patient then stated, Medicine. Medicine. When asked if he wanted pain medication, he nodded yes and asked for his anxiety medication. Patient also had two half-dollar size blood clots in his stool when the Jagdish Cedeño and myself cleaned him up. Will continue to monitor.
[2020-06-05 17:13] LABS: Glucose Point of Care 118 (65-105)
--- NOTE | 2020-06-05 17:58 | PM.IMPN ---
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 and updraft patient presented emergency department with a complaint abdominal pain, constipation, and blood in the stool, apparently patient had a complains of constipation couple of days he was seen in emergency department and again he presented emergency department with rectal bleeding, a very poor historian is difficult to understand he does not want talk very much, CT scan of the abdomen did not show any significant pathology to contribute to rectal bleeding nor any ischemia, will consult GI for further recommendation, patient lactic acid is elevated unlikely secondary due to infection as patient white count of chronically elevated due to chronic use of steroids, patient does not have any fever, again CT scan of abdominal and did not show any ischemia, most likely due to hypoxia, will gently hydrate the patient considering patient has severe COPD and hypoxia. today patient lactic acid is is close to normal, patient had a hard BM positive for Hemoccult seen by GI suspect hemorrhoids, patient still quite above is not a good candidate for any GI procedure, spoke with the patient's daughter not sure about the hospice, will continue present managment and further recommendation to follow (2) Rectal bleeding: Code(s): K62.5 - Hemorrhage of anus and rectum Status: Acute Assessment and Plan: will keep the patient NPO, started the patient on Protonix IV b.i.d., will consult GI for further recommendation, will monitor H&H every 6 hours (3) Elevated lactic acid level: Code(s): R79.89 - Other specified abnormal findings of blood chemistry Status: Acute Assessment and Plan: etiology uncertain unlikely infectious source, most likely due to hypoxia will gently hydrate the patient and monitor (4) History of vertebral compression fracture: Code(s): Z87.81 - Personal history of (healed) traumatic fracture Status: Acute Assessment and Plan: patient with history of vertebral compression fracture patient is not a candidate for surgical cane due to severe hypoxia. 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 and updraft patient presented emergency department with a complaint abdominal pain, constipation, and blood in the stool, apparently patient had a complains of constipation couple of days he was seen in emergency department and again he presented emergency department with rectal bleeding, a very poor historian is difficult to understand he does not want talk very much, CT scan of the abdomen did not show any significant pathology to contribute to rectal bleeding nor any ischemia, will consult GI for further recommendation, patient lactic acid is elevated unlikely secondary due to infection as patient white count of chronically elevated due to chronic use of steroids, patient does not have any fever, again CT scan of abdominal and did not show any ischemia, most likely due to hypoxia, will gently hydrate the patient considering patient has severe COPD and hypoxia. today patient lactic acid is is close to normal, patient had a hard BM positive for Hemoccult seen by GI suspect hemorrhoids, patient still quite above is not a good candidate for any GI procedure, spoke with the patient's daughter not sure about the hospice, will continue present managment and further recommendation to follow Review of Systems Review of Systems: ROS unobtainable: Yes unobtainable due to medical condition Exam Narrative: Exam Narrative: patient appears chronically malnourished Const: General: no acute distress and uncomfortable HEN
--- NOTE | 2020-06-05 19:55 | PM.EVENT ---
Event Note Event Note Event Note: COMFORT CARE NOTE This is a 75 year old male with COPD and rectal bleeding . Win I met with the patient's daughter who wishes to make him Comfort Care at this time. She has discussed this with the rest of her family members and they are all in agreement. Her plan is to have the patient enrolled in [facility] in the morning. I explained in detail that we would be giving the patient medicine to ease his discomfort, anxiety, and secretions. All questions were answered to her satisfaction.
--- NOTE | 2020-06-05 20:04 | PC.NURSE ---
Oral medications not given, unable to swallow and being made comfort care.
[2020-06-06] VITALS (7 sets, daily range): BP systolic 59–74; BP diastolic 31–35; PULSE 121–151; RESP 11–32; TEMP 37.1–37.5; O2SAT 93–95
[2020-06-06] MEDS: MORPHINE SULFATE 2 MG/ML INJ IV PUSH ×3 (00:44→08:52)
[2020-06-06] MEDS: IPRATROPIUM BR 0.02% INH SOLN 0.5 MG/2.5 ML VIAL INHALATION (08:16)
[2020-06-06] MEDS: ALBUTEROL SULFATE NEB 2.5 MG/0.5 ML INH 5 MG INHALATION (08:16)
--- NOTE | 2020-06-06 11:06 | WPDGIPROGNO ---
Progress Note: A&P Additional Plan Patient poorly responsive. Unable to obtain history. Occasional rectal bleeding reported by nursing staff. family has decided to place patient in hospice, comfort care measures only. Physical exam reveals abdomen to be benign. Labs reveal hemoglobin 7.8 yesterday. No additional labs today. Impression 1. Rectal lower GI bleeding. Further investigation will be deferred my understanding is patient is to be placed in hospice. Subjective Date/time seen: 06/06/20 11:06 Objective Data Vital Signs Vital Signs: Vital Signs - 24 hr 06/05/20 12:00 06/05/20 13:47 06/05/20 13:58 Temperature 99.1 F Pulse Rate 144 H 121 H 112 H Respiratory Rate 20 20 20 Blood Pressure 110/59 L Pulse Oximetry 93 06/05/20 16:00 06/05/20 18:00 06/05/20 20:00 Temperature 98.5 F 100.0 F H Pulse Rate 136 H 151 H 151 H Respiratory Rate 22 H 22 H Blood Pressure 108/83 99/45 L Pulse Oximetry 93 78 L 06/05/20 21:01 06/05/20 22:00 06/05/20 23:16 Temperature 100.6 F H Pulse Rate 147 H 166 H Respiratory Rate 22 H Blood Pressure 93/52 L Pulse Oximetry 98 95 06/06/20 00:00 06/06/20 02:00 06/06/20 04:00 Temperature 99.5 F Pulse Rate 151 H 132 H 132 H Respiratory Rate 24 H Blood Pressure 74/35 L Pulse Oximetry 93 06/06/20 06:00 06/06/20 08:00 06/06/20 08:16 Temperature 98.8 F Pulse Rate 131 H 134 H 121 H Respiratory Rate 32 H 11 L Blood Pressure 59/31 L Pulse Oximetry 95 06/06/20 08:26 Temperature Pulse Rate 130 H Respiratory Rate 12 Blood Pressure Pulse Oximetry Intake/Output Intake/Output: Intake & Output 06/03/20 06/04/20 06/05/20 06/06/20 23:59 23:59 23:59 23:59 Intake Total 1405 2450 Output Total 325 Balance 1080 2450 Meds/Results Medications: Active Medications Generic Name Dose Route Start Last Admin Trade Name Freq PRN Reason Stop Dose Admin Lidocaine 1 patch 06/04/20 09:00 06/05/20 08:17 Lidoderm TRANSDERM 1 patch DAILY LORENA Administration Lidocaine 1 patch 06/04/20 09:00 06/05/20 08:17 Lidoderm TRANSDERM 1 patch DAILY LORENA Administration Lorazepam 1 mg 06/05/20 19:52 06/06/20 05:31 Ativan Inj IV PUSH 1 mg Q1H PRN Administration Anxiety Morphine Sulfate 2 mg 06/05/20 19:51 06/06/20 08:52 Morphine Sulfate Inj IV PUSH 2 mg Q1H PRN Administration Pain Rated 7-10 Radiology Results: ITS Impressions Abdomen/Pelvis CT 06/04/20 07:47 IMPRESSION: 1. No acute intra-abdominal/pelvic process. 2. Severe emphysema. 3. Prominent distention of the bladder. Correlate clinically for either outlet 4. Multiple chronic and subacute lumbar and lower thoracic compression fractures without interval change since 04/17/2020 obstruction or neurogenic bladder. Chest X-Ray 06/04/20 10:32 IMPRESSION: 1. Emphysema. No acute cardiopulmonary disease. 2. 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 Labs Labs: Laboratory Results - last 24 hr 06/05/20 06/05/20 11:42 16:13 POC Capillary Glucose 151 H 118 H
--- NOTE | 2020-07-05 08:38 | PM.DDS ---
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 and updraft patient presented emergency department with a complaint abdominal pain, constipation, and blood in the stool, apparently patient had a complains of constipation couple of days he was seen in emergency department and again he presented emergency department with rectal bleeding, a very poor historian is difficult to understand he does not want talk very much, CT scan of the abdomen did not show any significant pathology to contribute to rectal bleeding nor any ischemia, will consult GI for further recommendation, patient lactic acid is elevated unlikely secondary due to infection as patient white count of chronically elevated due to chronic use of steroids, patient does not have any fever, again CT scan of abdominal and did not show any ischemia, most likely due to hypoxia, will gently hydrate the patient considering patient has severe COPD and hypoxia. today patient lactic acid is is close to normal, patient had a hard BM positive for Hemoccult seen by GI suspect hemorrhoids, patient still quite above is not a good candidate for any GI procedure, spoke with the patient's daughter not sure about the hospice, however patient on 06/06/2020 at 09:30 Additional Data Confirmation of as documented by pronouncing clinician: no pulse, no respirations, no heart sounds and pupils fixed and dilated Family: contacted Attending/PCP notified?: Yes Attending physician: Slick Méndez MD Was code activated?: No Autopsy requested?: Yes home office claims examiner notified?: Yes Organ bank notified?: Yes Advance directives: No Hospice patient?: No
== END 2020-06-06 09:30 | disposition expired | DRG 378 ==
LOC: ANHED 05:25 → ANHIMU 10:27
PROVIDERS: Admitting Provider Family Medicine; Emergency Provider General Practice; PCP Family Medicine; Visit Provider Family Medicine
DX: K62.5 Hemorrhage of anus and rectum (principal); R64 Cachexia; J96.11 Chronic respiratory failure with hypoxia; E46 Unspecified protein-calorie malnutrition; Z68.1 Body mass index [BMI] 19.9 or less, adult; I42.0 Dilated cardiomyopathy; J43.9 Emphysema, unspecified; K59.03 Drug induced constipation; T40.2X5A Adverse effect of other opioids, initial encounter; F41.1 Generalized anxiety disorder; N40.0 Benign prostatic hyperplasia without lower urinary tract symptoms; D64.9 Anemia, unspecified; I48.91 Unspecified atrial fibrillation; K64.9 Unspecified hemorrhoids; Z66 Do not resuscitate; R62.7 Adult failure to thrive; Z87.891 Personal history of nicotine dependence; Z87.81 Personal history of (healed) traumatic fracture; Z99.81 Dependence on supplemental oxygen
CPT/HCPCS: 36415; 36600; 71045; 74177; 80048; 80053; 82274; 82375; 82805; 83050; 83605; 83735; 85014; 85018; 85025; 85027; 85055; 85610; 85730; 86850; 86900; 86901; 87040; 87076; 87077; 87185; 87186; 93005; 94002; 94640; 96361; 96365; 96375; 96376; 99285; A9270; C9113; G0378; J0131; J2060; J2270; J2930; J7030; Q9967